=== PATIENT | female | born 1945 | race Caucasian/White ===

== ENCOUNTER 2016-12-10 08:15 | Inpatient (IN) ==
--- NOTE | 2016-12-10 08:42 | Emergency Department Note ---
Whit Gooden Hilary, am scribing for, and in the presence of, Denver Ramos MD 08:38. Rachel Gooden Phillip K, MD, personally performed the services described in this documentation, ascribed by Afshan Sherman in my presence, and it is both accurate and complete 842 . Arrival - Arrival Chief Complaint: Extremity Injury Stated Complaint: ankle injury ED Nursing Triage Note: Brought in by EMS c/o left ankle deformity s/p fall around 0530 this morning. Obvious deformity noted to left ankle. PMS intact. Mode of Arrival: Stretcher Limitations: No Limitations Source: Patient, RN Notes Reviewed Time Seen by Provider: 12/10/16 08:28 - History of Present Illness HPI Narrative: Pt is a 71 y/o female brought to the ED via EMS with c/o left ankle pain s/p a fall this morning. Pt states she was standing in her closet picking out clothes when she fell over and hurt her left ankle. She reports being very weak recently due to vomiting and diarrhea for 6 days. She confirms left ankle pain, vomiting, diarrhea and weakness but denies LOC. No other complaints or problems stated in the ED. Onset (ago): hour(s) Consistency: constant Severity: moderate Severity scale (1-10): 2 Quality: sharp Date of Last Menstrual Period: hysterectomy Allergies/Adverse Reactions: Allergies Allergy/AdvReac Type Severity Reaction Status Date / Time Cefaclor [From Ceclor] Allergy Severe SHORTNESS Verified 09/05/16 14:48 OF BREATH Meclofenamic Acid Allergy Severe RASH Verified 09/05/16 14:48 [From Meclomen] ofloxacin [From Floxin] Allergy Severe RASH Verified 09/05/16 14:48 Oxycodone [From OxyContin] Allergy Severe Confusion Verified 09/05/16 14:48 piroxicam [From Feldene] Allergy Severe Nausea Verified 09/05/16 14:48 ranitidine [From Zantac] Allergy Severe Gastrointestinal Verified 09/05/16 14:48 Upset alprazolam [From Xanax] Allergy Intermediate Gastrointestinal Verified 09/05/16 14:48 Upset levofloxacin [From Levaquin] Allergy Intermediate RASH Verified 09/05/16 14:48 meclizine Allergy Intermediate RASH Verified 09/05/16 14:48 Penicillins Allergy Intermediate RASH Verified 09/05/16 14:48 ANDROSPAM Allergy Severe RASH Uncoded 09/05/16 14:48 Home Medications: Home Medications Medication Instructions Recorded Confirmed Type Clopidogrel [Plavix] 75 mg PO DAILY 02/21/15 09/10/16 History Montelukast Sodium 10 mg PO DAILY 02/21/15 09/10/16 History Omeprazole [Prilosec] 20 mg PO BID 02/21/15 09/10/16 History Pioglitazone HCl 30 mg PO DAILY 02/21/15 09/10/16 History Sertraline HCl 1 tablet PO DAILY 02/21/15 09/10/16 History Potassium Chloride 10 meq PO DAILY 03/06/15 09/10/16 History Albuterol Sulfate [Ventolin HFA] 2 puff INH BID 09/05/16 09/10/16 History Aspirin EC Tab 81 mg PO DAILY 09/05/16 09/10/16 History Ipratropium/Albuterol Inhaler 1 puff INH BID 09/05/16 09/10/16 History [Combivent Respimat Inhaler] predniSONE TAB [PredniSONE] 20 mg PO DAILY #60 tablet 09/09/16 09/10/16 Rx Budesonide/Formoterol 160-4.5 2 puff INH BID 09/10/16 09/10/16 History [Symbicort 160-4.5] Carvedilol [Coreg] 6.25 mg PO BID #100 tablet 09/21/16 Rx Furosemide Tab [Lasix Tab] 40 mg PO DAILY #60 tablet 09/21/16 Rx Spironolactone [Aldactone] 12.5 mg PO DAILY #60 tablet 09/21/16 Rx Valsartan [Diovan] 80 mg PO BID #100 tablet 09/21/16 Rx Review of System - Review of System 12 point system: reviewed and no additional remarkable complaints except as stated - Review of System Constitutional: Absent: fever Cardiovascular: Absent: syncope Gastrointestinal: Present: nausea, vomiting Musculoskeletal: Present: leg pain (left ankle pain) Medical,Surgical,& Family Hx - Medical History Cardio: History of: CAD, Hypertension, Cardiovascular Problems Neurology: History of: Cerebrovascular Accident No history of: Seizures HEENT: History of: Dental Problems Endocrine: History of: Adrenal Disease (CYST ON R LEFT ADRENL GLAND REMOVE) , Diabetes Mellitus (NIDDM) Rheumatology: History of;: Rheumatoid Arthritis Respiratory: History of: COPD, Pneumonia, Respiratory Problems (HOMEV O2) Renal: Comment Only: Renal Problems (CYST ON RIGHT RENAL GLAND) Genitourinary: History of: Recurring Urinary Tract Infections (LEFT ADRENAL GLAND AND KIDNEY REMOVAL DUE TO CYST) Gastrointestinal: History of: Polyps Musculoskeletal: History of: Back/Neck Problems (PINCH NERVE) Hematology: History of: Clotting Problems (TAKING PLAVIX, NO SPLEEN) Reproductive: History of: Reproductive Problems (INFECTION IN WOMB) Other: History of: MRSA - Surgical History Cardiac Surgeries: Sugical HX of: Cardiac Catheterization (stent x's 1) Thoracic Surgeries: Surgical HX of;: Nephrectomy (LEFT KIDNEY) Abdominal Surgeries: Surgical HX of: Cholecystectomy, Splenectomy Reproductive Surgeries: Surgical HX of;: Breast Surgery (BREAST BX), Genitourinary Surgery, Gynecologic Surgery, Hysterectomy Orthopedic Surgeries: Surgical HX of;: Orthopedic Surgery (RIGHT WRIST L ELBOW) - Family History Family History: Reports;: Family Cancer (PARENTS 2 SISTERS), Family Diabetes ( DAD BROTHER SISTER), Family Heart Disease (sister and brother) - Social History Smoking Status: Smoker, status unknown Frequency of Alcohol Use: None Type of Drug Use: None Exam Vital Signs: Vital Signs Temperature 97.8 F 12/10/16 08:20 Pulse Rate 54 L 12/10/16 08:41 Respiratory Rate 20 12/10/16 08:41 Blood Pressure 156/76 12/10/16 08:41 O2 Sat by Pulse Oximetry 100 12/10/16 08:41 - General General appearance: alert, in no apparent distress - Head Head exam: Present: atraumatic, normocephalic - Eye Eye exam: Present: normal appearance, PERRL, EOMI - ENT ENT exam: Present: mucous membranes moist, TM's normal bilaterally. Absent: mucous membranes dry - Neck Neck exam: Present: full ROM, trachea midline. Absent: tenderness - Chest Chest inspection: Present: symmetric chest wall rise. Absent: tenderness - Respiratory Respiratory exam: Present: normal lung sounds bilaterally. Absent: respiratory distress - Cardiovascular Cardiovascular exam: Present: regular rate, normal rhythm, normal heart sounds. Absent: murmur, rubs, gallop - Abdominal Exam Abdominal exam: Present: soft, tenderness, normal bowel sounds. Absent: distention - Extremities Exam Extremities exam: Present: tenderness (swelling and tenderness to the medial and lateral aspect of left ankle). Absent: full ROM (left ankle) - Back Exam Back exam: Present: full ROM. Absent: tenderness - Neurological Exam Neurological exam: Present: alert, oriented X3, CN II-XII intact. Absent: motor sensory deficit - Psychiatric Psychiatric exam: Present: normal affect, normal mood - Skin Skin exam: Present: warm, dry, intact, normal color. Absent: rash Course Course Narrative: Labs presently pending. Results - EKG EKG results: interpreted by ERMMaldonado, WNL, sinus rhythm - Diagnostic Findings Procedure: X-ray: report reviewed by me (Bimalleolar fracture left ankle) Disposition Clinical Impression: Bimalleolar fracture of left ankle Case discussed with: patient, patient's family Disposition: Still a Patient Condition: Guarded Additional Instructions: Admit to Dr. Derrek Rodney for ankle surgery.
[2016-12-10] MEDS ORDERED: CLINDAMYCIN INJ 900 MG in PREMIX 1 EACH IV ONE (08:51)
[2016-12-10] MEDS ORDERED: HYDROmorphone 2 MG/1 ML VIAL IV PRN (08:52)
--- NOTE | 2016-12-10 08:52 | Orthopedic History & Physical ---
History of Present Illness Chief complaint: Left ankle fracture History of present illness: Ms. Nava is a 71 year old female See dictated report Home Medications Medication Instructions Recorded Confirmed Type Clopidogrel [Plavix] 75 mg PO DAILY 02/21/15 09/10/16 History Montelukast Sodium 10 mg PO DAILY 02/21/15 09/10/16 History Omeprazole [Prilosec] 20 mg PO BID 02/21/15 09/10/16 History Pioglitazone HCl 30 mg PO DAILY 02/21/15 09/10/16 History Sertraline HCl 1 tablet PO DAILY 02/21/15 09/10/16 History Potassium Chloride 10 meq PO DAILY 03/06/15 09/10/16 History Albuterol Sulfate [Ventolin HFA] 2 puff INH BID 09/05/16 09/10/16 History Aspirin EC Tab 81 mg PO DAILY 09/05/16 09/10/16 History Ipratropium/Albuterol Inhaler 1 puff INH BID 09/05/16 09/10/16 History [Combivent Respimat Inhaler] predniSONE TAB [PredniSONE] 20 mg PO DAILY #60 tablet 09/09/16 09/10/16 Rx Budesonide/Formoterol 160-4.5 2 puff INH BID 09/10/16 09/10/16 History [Symbicort 160-4.5] Carvedilol [Coreg] 6.25 mg PO BID #100 tablet 09/21/16 Rx Furosemide Tab [Lasix Tab] 40 mg PO DAILY #60 tablet 09/21/16 Rx Spironolactone [Aldactone] 12.5 mg PO DAILY #60 tablet 09/21/16 Rx Valsartan [Diovan] 80 mg PO BID #100 tablet 09/21/16 Rx Allergies Allergy/AdvReac Type Severity Reaction Status Date / Time Cefaclor [From Ceclor] Allergy Severe SHORTNESS Verified 09/05/16 14:48 OF BREATH Meclofenamic Acid Allergy Severe RASH Verified 09/05/16 14:48 [From Meclomen] ofloxacin [From Floxin] Allergy Severe RASH Verified 09/05/16 14:48 Oxycodone [From OxyContin] Allergy Severe Confusion Verified 09/05/16 14:48 piroxicam [From Feldene] Allergy Severe Nausea Verified 09/05/16 14:48 ranitidine [From Zantac] Allergy Severe Gastrointestinal Verified 09/05/16 14:48 Upset alprazolam [From Xanax] Allergy Intermediate Gastrointestinal Verified 09/05/16 14:48 Upset levofloxacin [From Levaquin] Allergy Intermediate RASH Verified 09/05/16 14:48 meclizine Allergy Intermediate RASH Verified 09/05/16 14:48 Penicillins Allergy Intermediate RASH Verified 09/05/16 14:48 ANDROSPAM Allergy Severe RASH Uncoded 09/05/16 14:48 Medical,Surgical,& Family Hx - Medical History Cardio: History of: CAD, Hypertension, Cardiovascular Problems Neurology: History of: Cerebrovascular Accident No history of: Seizures HEENT: History of: Dental Problems Endocrine: History of: Adrenal Disease (CYST ON R LEFT ADRENL GLAND REMOVE) , Diabetes Mellitus (NIDDM) Rheumatology: History of;: Rheumatoid Arthritis Respiratory: History of: COPD, Pneumonia, Respiratory Problems (HOMEV O2) Renal: Comment Only: Renal Problems (CYST ON RIGHT RENAL GLAND) Genitourinary: History of: Recurring Urinary Tract Infections (LEFT ADRENAL GLAND AND KIDNEY REMOVAL DUE TO CYST) Gastrointestinal: History of: Polyps Musculoskeletal: History of: Back/Neck Problems (PINCH NERVE) Hematology: History of: Clotting Problems (TAKING PLAVIX, NO SPLEEN) Reproductive: History of: Reproductive Problems (INFECTION IN WOMB) Other: History of: MRSA - Surgical History Cardiac Surgeries: Sugical HX of: Cardiac Catheterization (stent x's 1) Thoracic Surgeries: Surgical HX of;: Nephrectomy (LEFT KIDNEY) Abdominal Surgeries: Surgical HX of: Cholecystectomy, Splenectomy Reproductive Surgeries: Surgical HX of;: Breast Surgery (BREAST BX), Genitourinary Surgery, Gynecologic Surgery, Hysterectomy Orthopedic Surgeries: Surgical HX of;: Orthopedic Surgery (RIGHT WRIST L ELBOW) - Family History Family History: Reports;: Family Cancer (PARENTS 2 SISTERS), Family Diabetes ( DAD BROTHER SISTER), Family Heart Disease (sister and brother) - Social History Smoking Status: Smoker, status unknown Frequency of Alcohol Use: None Type of Drug Use: None Exam - Constitutional Vitals: Period Temp Pulse Resp BP Sys/Blanc Pulse Ox Last 24 Hr 97.8 F-97.8 F 52-54 20-22 156-160/60-76 100-100
--- NOTE | 2016-12-10 08:57 | XRay Report ---
XR ankle 3V LT Indication: Left ankle injury. Comparison: None. Technique: AP lateral and oblique views of the left ankle. Findings: There is a large amount of swelling involving the lateral and medial malleolar soft tissues. A minimally displaced bimalleolar, possibly trimalleolar fracture is demonstrated with lateral translation of the talus within the tibiotalar joint. Bony structures are diffusely demineralized. Impression: 1. An acute bimalleolar fracture of the left ankle is demonstrated with lateral translation of the talus within the tibiotalar joint. Posterior malleolus of the tibia is not well identified on the lateral image. Trimalleolar fracture is not excluded. 12/10/2016 8:53 AM PROCEDURE INTERPRETED AT [facility] DEPARTMENT OF RADIOLOGY Final Report Signed by: Dr. Declan Enamorado
--- NOTE | 2016-12-10 09:00 | EKG Report ---
Stationary ECG Study [facility] ER Test Date: 12/10/2016 9:01:06 AM Pat Name: DAVID COX Department: Room: Gender: F Systems Analyst Engineer: : 1945 Requested by: Denver Vora Order Number: [id number] Reading MD: MARCELLO FERGUSON Intervals [place] Rate: 53 P: 67 NE: 144 QRS: 83 QRSD: 101 T: 78 QT: 467 QTc: 450 Interpretive Statements SINUS BRADYCARDIA Electronically Signed On 12-10-16 13:28:06 CDT by MARCELLO FERGUSON [email or web address]
[2016-12-10 09:15] LABS: Basophils # 0.1 10*3/uL (0.0-0.2); Basophils % 0.3 % (0.0-0.8); Eosinophils # 0.1 10*3/uL (0.0-0.87); Eosinophils % 0.3 % (0.00-10.9); Hematocrit 39.9 VOL% (35.7-47.0); Immature Granulocytes % 0.4 %; Immature Granulocytes Absolute 0.07 #; Lymphocytes # 3.9 10*3/uL (1.4-4.0); Lymphocytes % 21.4 % (21.3-54.2); Mean Corpuscular HGB Conc 32.6 GM/DL (32-36); Mean Corpuscular Hemoglobin 31 PG (27-34); Mean Corpuscular Volume 94.5 FL (87-102); Mean Platelet Volume 11.6 FL (9.6-12.0); Monocytes # 1.4 10*3/uL (0.11-0.8); Monocytes % 7.3 % (1.7-12.7); Neutrophils # 12.9 10*3/uL (1.4-7.4); Neutrophils % 70.3 % (38.7-73.9); Platelet Count 213 T/CUMM (130-400); Red Blood Count 4.22 MC/CUMM (3.8-5.5); Red Cell Distribution Width 14.2 % (9.3-17.3); White Blood Count 18.4 T/CUMM (4-12)
--- NOTE | 2016-12-10 09:25 | XRay Report ---
Exam: XR chest 1V Date: 12/10/2016 8:53 AM Indication: Respiratory preop evaluation of the chest Comparison: 09/19/2016 Technical: AP portable Findings: Cardiomegaly is present. ASVD is noted. Arthritic change present over the shoulders. Oxygen tubing is present. No obvious consolidating infiltrate or effusion. Impression: 1. Cardiomegaly with ASVD. 2. Improved aeration with resolved effusion and interstitial edema when compared to previous study. PROCEDURE INTERPRETED AT [facility] DEPARTMENT OF RADIOLOGY Final Report Signed by: Dr. Александр Magallanes
[2016-12-10 09:29] LABS: PT Patient Result 10.1 SECS; Partial Thromboplastin Time 26.8 SECS (0-40)
[2016-12-10 09:47] LABS: Alanine Aminotransferase 14 U/L (13-56); Albumin 3.2 G/DL (3.4-5.0); Alkaline Phosphatase 113 U/L (45-117); Aspartate Amino Transferase 10 U/L (0-37); Bilirubin,Total < 0.39 MG/DL (0.2-1.0); Blood Urea Nitrogen 29 MG/DL (7-18); Calcium 8.8 MG/DL (8.5-10.1); Glucose 103 MG/DL (74-106); Potassium 4.1 MMOL/L (3.5-5.1); Sodium 143 MMOL/L (136-145); Total Protein 6.3 G/DL (6.4-8.3)
[2016-12-10] MEDS ORDERED: PROPOFOL 200 MG/20 ML VIAL IV ONE (09:56)
[2016-12-10] MEDS ORDERED: PHENYLEPHRINE 1 MG/10 ML SYRINGE IV ONE (09:56)
[2016-12-10] MEDS ORDERED: ONDANSETRON 4 MG/2 ML VIAL ONE ×2 (09:56→11:32)
[2016-12-10] MEDS: SODIUM CHLORIDE 0.9% 1,000 ML IV SCH ×2 (09:56→12:51)
[2016-12-10] MEDS ORDERED: GLYCOPYRROLATE 0.4 MG/2 ML VIAL ONE (09:56)
[2016-12-10] MEDS ORDERED: CLINDAMYCIN INJ 50 ML IV ONE (10:02)
--- NOTE | 2016-12-10 11:08 | XRay Report ---
XR ankle 3V LT Indication: Intraoperative C-arm fluoroscopy. Comparison: None. Technique: A total of 5 images were obtained intraoperatively using C-arm fluoroscopy. Findings: Images were reviewed and deemed satisfactory by the operative physician. Total fluoroscopy time was 6 seconds. Impression: 1. C-arm usage as detailed. 12/10/2016 11:05 AM PROCEDURE INTERPRETED AT [facility] DEPARTMENT OF RADIOLOGY Final Report Signed by: Dr. Declan Enamorado
[2016-12-10] MEDS ORDERED: LACTULOSE 20 GM/30 ML UDCUP PO PRN (11:17)
[2016-12-10] MEDS ORDERED: MAGNESIUM HYDROXIDE SUSP 30 ML UDCUP PO PRN (11:17)
--- NOTE | 2016-12-10 11:21 | Anesthesia Post-Op ---
Anesthesia Post OP - Post Ansesthetic Evaluation Patient seen in post op: Yes Resp: within normal limits CV: within normal limits Mental: within normal limits Temp: within normal limits [id number]: within normal limits Nausea and Vomiting: within normal limits Pain: within normal limits
[2016-12-10] MEDS ORDERED: ACETAMINOPHEN 1,000 MG/100 ML VIAL IV ONE (11:25)
[2016-12-10] MEDS ORDERED: SEVOFLURANE 1 UNIT/15 MINUTE INH ONE (11:25)
[2016-12-10] MEDS ORDERED: LACTATED RINGERS 1,000 ML IV ONE (11:25)
[2016-12-10] MEDS ORDERED: LACTATED RINGERS 1,000 ML IV SCH (11:30)
[2016-12-10] MEDS ORDERED: ONDANSETRON 4 MG/2 ML VIAL IV PRN (11:30)
[2016-12-10] MEDS ORDERED: HYDROmorphone 2 MG/1 ML VIAL ONE (11:31)
[2016-12-10] MEDS: HYDROmorphone 2 MG/1 ML VIAL IV PRN ×3 (11:36→16:39)
--- NOTE | 2016-12-10 13:11 | Hospitalist Consult Note ---
Assessment and Plan (1) COPD (chronic obstructive pulmonary disease) Status: Chronic Assessment and plan: Long history of tobacco use with terminating hospitalizations in September, secondary mucoid impaction with respiratory failure requiring mechanical ventilation. Successful cessation of tobacco product use following discharge. Current Visit: No Qualifiers: COPD type: chronic bronchitis (2) Atherosclerotic cardiovascular disease Status: Chronic Assessment and plan: Previous left anterior descending coronary artery stenting. Recent echocardiogram showing ejection fraction 40%. Bilateral carotid bruits with prominent intra-abdominal bruits. Current Visit: No (3) Bimalleolar fracture of left ankle Status: Acute Current Visit: Yes (4) Diarrhea Status: Chronic Assessment and plan: She appears to have long-standing GI complaints most recently she has been bothered by liquid diarrhea. She did receive a prolonged course of antibiotics in September but apparently was not found to have C. difficile during a hospitalization in November at her local hospital she continued to have diarrhea and attributes her injury due to weakness from long-standing diarrhea. Current Visit: Yes History of Present Illness - Data of Consult Patient: known to practice within the last 3 years - Consult Narrative History of present illness: Ms. Nava is a 71 year old female who earlier today lost her balance and twisted and sustained an ankle fracture. Earlier today she underwent repair of the left malleolar fracture. Patient describes herself as being very weak and this the source of the fall. She attributes the weakness to a chronic diarrhea which developed in November leading to the hospitalization at her local hospital. She was discharged with Imodium. No antibiotics were prescribed at discharge. She reports the diarrhea cleared for a few days and then recurred. She continues to have liquid bowel movements with urgency and only mild abdominal pain generally. She was exposed heavily to antibiotics in September presenting here with an exacerbation of COPD returning home and being admitted the next day with respiratory failure requiring moderate to a course of mechanical ventilation. At that time she was a significant cigarette smoker and the second admission was felt to be due to mucoid impaction. She is been able to stop smoking since her release from the hospital in September. Patient has a history of coronary artery disease with a left anterior descending coronary stent placed approximately 2 years ago. Her echocardiogram done in September shows an ejection fraction of 40% with appropriate anterior wall hypokinesia. Recorded right ventricular systolic pressure was normal at that time. 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 She also apparently had an adrenal gland resected (chart notes of nephrectomy appear to be an accurate) and on September CT scanning had enlargement of the remaining adrenal gland. CC: Garth Anglin Jr., MD - Home Medications and Allergies Home Medications: Home Medications Medication Instructions Recorded Confirmed Type Clopidogrel [Plavix] 75 mg PO DAILY 02/21/15 12/10/16 History Montelukast Sodium 10 mg PO DAILY 02/21/15 12/10/16 History Omeprazole [Prilosec] 20 mg PO BID 02/21/15 12/10/16 History Pioglitazone HCl 30 mg PO DAILY 02/21/15 12/10/16 History Sertraline HCl 50 mg PO DAILY 02/21/15 12/10/16 History Aspirin EC Tab 81 mg PO DAILY 09/05/16 12/10/16 History Carvedilol [Coreg] 6.25 mg PO BID #100 tablet 09/21/16 12/10/16 Rx Furosemide Tab [Lasix Tab] 40 mg PO DAILY #60 tablet 09/21/16 12/10/16 Rx Valsartan [Diovan] 80 mg PO BID #100 tablet 09/21/16 12/10/16 Rx Glycopyrrolate/Formoterol Fum 1 puff INH DAILY 12/10/16 12/10/16 History [Bevespi Aerosphere Inhaler] Allergies/Adverse Reactions: Allergies Allergy/AdvReac Type Severity Reaction Status Date / Time Cefaclor [From Ceclor] Allergy Severe SHORTNESS Verified 09/05/16 14:48 OF BREATH Meclofenamic Acid Allergy Severe RASH Verified 09/05/16 14:48 [From Meclomen] ofloxacin [From Floxin] Allergy Severe RASH Verified 09/05/16 14:48 Oxycodone [From OxyContin] Allergy Severe Confusion Verified 09/05/16 14:48 piroxicam [From Feldene] Allergy Severe Nausea Verified 09/05/16 14:48 ranitidine [From Zantac] Allergy Severe Gastrointestinal Verified 09/05/16 14:48 Upset alprazolam [From Xanax] Allergy Intermediate Gastrointestinal Verified 09/05/16 14:48 Upset levofloxacin [From Levaquin] Allergy Intermediate RASH Verified 09/05/16 14:48 meclizine Allergy Intermediate RASH Verified 09/05/16 14:48 Penicillins Allergy Intermediate RASH Verified 09/05/16 14:48 ANDROSPAM Allergy Severe RASH Uncoded 09/05/16 14:48 Medical,Surgical,& Family Hx - Medical History Cardio: History of: CAD (Stenting to the left anterior descending coronary artery), Hypertension, Cardiovascular Problems (Left ventricular ejection fraction 40% on echocardiogram) Neurology: History of: Cerebrovascular Accident (2 episodes one involving the left side and the second involving both lower ), Seizures HEENT: History of: Dental Problems Endocrine: History of: Adrenal Disease (Enlarged on CT in September, prior adrenal resection), Diabetes Mellitus (NIDDM) (Mild glucose intolerance treated with pioglitazone only) Rheumatology: History of;: Rheumatoid Arthritis Respiratory: History of: COPD (Requirement of mechanical ventilation September 2016) , Pneumonia, Respiratory Problems (HOMEV O2) Renal: Comment Only: Renal Problems (CYST ON RIGHT RENAL GLAND) Genitourinary: History of: Recurring Urinary Tract Infections (LEFT ADRENAL GLAND AND KIDNEY REMOVAL DUE TO CYST) Gastrointestinal: History of: Polyps (She reports no colonoscopy in the last 8- 10 years), GI Problems (She describes a "stomach infection") Hematology: History of: Blood Disorders (ITP remote with splenectomy) Other: History of: MRSA - Surgical History Cardiac Surgeries: Sugical HX of: Cardiac Catheterization (stent x's 1) Abdominal Surgeries: Surgical HX of: Cholecystectomy, Splenectomy Reproductive Surgeries: Surgical HX of;: Breast Surgery (Multiple breast biopsies for benign disease), Genitourinary Surgery (Removal of adrenal gland), Hysterectomy Orthopedic Surgeries: Surgical HX of;: Orthopedic Surgery (RIGHT WRIST L ELBOW) - Family History Family History: Reports;: Family Cancer (PARENTS 2 SISTERS), Family Diabetes ( DAD BROTHER SISTER), Family Heart Disease (sister and brother) - Social History Smoking Status: Former smoker (No consumption since discharge in September 2069) Frequency of Alcohol Use: None Type of Drug Use: None - Constitutional Constitutional: Present: fatigue, weakness. Absent: fever(s) - Cardiovascular Cardiovascular: Absent: chest pain at rest, chest pain with activity, palpitations, PND - Respiratory Respiratory: Present: cough, dyspnea. Absent: hemoptysis - Gastrointestinal Gastrointestinal: Present: diarrhea. Absent: cramping, dysphagia, hematemesis, hematochezia, melena, nausea, vomiting - Genitourinary Genitourinary: Absent: hematuria - Neurological Neurological: Absent: disequilibrium, focal weakness, syncope Exam - Constitutional Vitals: Period Temp Pulse Resp BP Sys/Blanc Pulse Ox Last 24 Hr 97.8 F-98.8 F 52-74 12-22 102-160/33-76 100-100 General appearance: over weight - Neck Neck exam: Absent: lymphadenopathy, thyromegaly - Respiratory Respiratory exam: Present: prolonged expiratory phase, wheezes (End-expiratory on). Absent: rales, rhonchi - Cardiovascular Cardiovascular exam: Present: carotid bruit (Bilateral right greater than left) , regular rate and rhythm, systolic murmur (Compatible with coronary sclerosis) - GI/Abdominal GI/Abdominal exam: Present: normal bowel sounds, other (Diffuse intra-abdominal bruits). Absent: distended, mass, organomegaly, tenderness - Extremities Exam Extremities exam: Absent: edema - Neurological Exam Neurological exam: Present: alert, oriented X3 Results - Labs CBC & BMP: 12/10/16 08:53 12/10/16 08:52 Labs: Albumin 3.2 - Impressions Sinus rhythm with sinus bradycardia - Diagnostic Findings Procedure: Chest x-ray: image reviewed by me (Normal heart size with increased interstitial markings and prominent pulmonary trunks)
[2016-12-10] MEDS: ALBUTEROL/IPRATROPIUM 3 ML NEB RESP TX SCH ×3 (13:56→23:38)
--- NOTE | 2016-12-10 14:30 | History and Physical Report ---
DATE OF ADMISSION: 12/10/2016 HISTORY: A 71-year-old, white female reported to be a household ambulator, fell this morning injurin g her left ankle. She had immediate pain, swelling and deformity. She has numerous medical problems . [facility], diagnosed with bimalleolar fracture o f the left ankle, which I was asked to evaluate. PAST MEDICAL HISTORY: COPD, hypertension, diabetes and heart disease. ALLERGIES: CECLOR, MECLOMEN, FLOXIN, OXYCONTIN, FELDENE, ZANTAC, XANAX, LEVAQUIN, MECLIZINE, PENICIL COLLEEN AND . CURRENT MEDICATIONS: Prednisone, Diovan, Aldactone, Sertraline, Potassium, Pioglitazone, Prilosec, M ontelukast, Combivent inhaler, Lasix, Plavix, Coreg, Symbicort, Aspirin and Ventolin. PAST SURGERY: Wrist ORIF. PHYSICAL EXAMINATION GENERAL: Well-developed and well-nourished female. She is awake and alert, responses to questions a ppropriately. HEENT: Within normal limits. CHEST: Clear. HEART: Regular rate and rhythm. ABDOMEN: Soft and nontender. /RECTAL: Deferred. EXTREMITIES: She has no pain about either upper extremity with palpation and gentle range of motion. Also there is no pain with gentle range of motion about the right lower. On the left side, there i s obvious swelling and deformity about the left ankle. The injury is closed. She can wiggle her toe s, describes sensibility as intact. There is no skin abrasion or laceration. There is no pain more proximally to the tibia, knee or hip. RADIOGRAPHS: Confirm sever osteopenia with bimalleolar fracture left ankle, displaced. IMPRESSION: BIMALLEOLAR FRACTURE, LEFT ANKLE. PLAN: I have discussed with the patient and her family the diagnosis, treatment and recommendations including the need for ORIF. We also discussed the postoperative course and the need for nonweightbe aring postoperatively. This may necessitate swing bed placement. All questions were answered. She appears to understand and agrees to the plan for ORIF, left ankle.
--- NOTE | 2016-12-10 15:53 | Discharge Summary ---
Hospital Course - Hospital Course Hospital Course: Admitted for ORIF left ankle discharged home or rehab depending on family decision and PT safety Diagnosis - Discharge Diagnosis (1) Bimalleolar fracture of left ankle Status: Acute Discharge Plan - Discharge Data Disposition: Disch To Home/Self Care Condition at Discharge: Stable Discharge Diet: advance to your usual diet Activity: ambulate only with your walker Hygiene: keep area(s) dry Weight Bearing at Discharge: non-weight bearing - Discharge Medications New HYDROcodone/ACETAMIN 7.5-325 [[place] 7.5-325] 2 tablet PO Q4H PRN #25 tablet PRN Reason: Pain Severe (8-10) Continue Pioglitazone HCl 30 mg PO DAILY Omeprazole [Prilosec] 20 mg PO BID Clopidogrel [Plavix] 75 mg PO DAILY Sertraline HCl 50 mg PO DAILY Montelukast Sodium 10 mg PO DAILY Aspirin EC Tab 81 mg PO DAILY Furosemide Tab [Lasix Tab] 40 mg PO DAILY #60 tablet Valsartan [Diovan] 80 mg PO BID #100 tablet Glycopyrrolate/Formoterol Fum [Bevespi Aerosphere Inhaler] 1 puff INH DAILY Carvedilol [Coreg] 6.25 mg PO BID #100 tablet - Follow Up or Referral - Forms/Instructions Additional Discharge Instructions: Discharge home or swing bed continue home meds [place] for pain nonweightbearing with routine splint care follow-up 10 days Exam - Constitutional Vitals: Period Temp Pulse Resp BP Sys/Blanc Pulse Ox Last 24 Hr 97.8 F-98.8 F 52-74 12-22 86-160/33-76 99-100 Discharge Results Procedures and tests throughout hospitalization: Pending Orders 12/10/16 13:03 stool [C. Diff Toxins A & B] Routine Labs on day of discharge: Labs from last 24 hours 12/10/16 12/10/16 12/10/16 08:53 08:53 08:52 WBC 18.4 H RBC 4.22 Hgb 13.0 Hct 39.9 MCV 94.5 MCH 31 MCHC 32.6 RDW 14.2 Plt Count 213 MPV 11.6 Neut % (Auto) 70.3 Lymph % (Auto) 21.4 [place] % (Auto) 7.3 Eos % (Auto) 0.3 Baso % (Auto) 0.3 Neut # (Auto) 12.9 H Lymph # (Auto) 3.9 [place] # (Auto) 1.4 H Eos # (Auto) 0.1 Baso # (Auto) 0.1 Immature Gran % 0.4 Nucleated RBC % 0.0 Immature Gran # 0.07 Nucleated RBCs # 0.00 INR 1.0 PT Patient/Control Mix 10.1 Circ Anticoag PTT 26.8 Sodium Potassium Chloride Carbon Dioxide Anion Gap BUN Creatinine GFR Calculation BUN/Creatinine Ratio Glucose Calculated Osmolality Calcium Total Bilirubin AST ALT Alkaline Phosphatase Total Protein Albumin Globulin Albumin/Globulin Ratio Blood Type O POSITIVE Antibody Screen Negative 12/10/16 08:52 WBC RBC Hgb Hct MCV MCH MCHC RDW Plt Count MPV Neut % (Auto) Lymph % (Auto) [place] % (Auto) Eos % (Auto) Baso % (Auto) Neut # (Auto) Lymph # (Auto) [place] # (Auto) Eos # (Auto) Baso # (Auto) Immature Gran % Nucleated RBC % Immature Gran # Nucleated RBCs # INR PT Patient/Control Mix Circ Anticoag PTT Sodium 143 Potassium 4.1 Chloride 108 H Carbon Dioxide 23 Anion Gap 16.1 H BUN 29 H Creatinine 1.40 H GFR Calculation 37 BUN/Creatinine Ratio 20.00 Glucose 103 Calculated Osmolality 290.0 Calcium 8.8 Total Bilirubin < 0.39 AST 10 ALT 14 Alkaline Phosphatase 113 Total Protein 6.3 L Albumin 3.2 L Globulin 3.1 Albumin/Globulin Ratio 1.0 L Blood Type Antibody Screen DS: Provider Date of admission: 12/10/16 08:50 Primary care physician: . No PCP Attending physician on admission: Garth Anglin Jr., MD Consults: 12/10/16 08:52 Consult to Anesthesiology [CONS] Routine Consulting Provider: Reason for Anesthesiology: Pre-op Clearance 12/10/16 09:06 Consult to Physician [CONS] Routine Comment: Consulting Provider: Aron Schaefer Consulting Provider Notified: Yes When should Consulting Provider be notified: Now Person Notified: power called Date Notified: 12/10/16 Time Notified: 12:24 12/10/16 11:17 Consult to Physical Therapy [CONS] Routine Reason for Physical Therapy: Evaluate and Treat 12/10/16 11:20 Consult to Case Mgmt/Social Srvs [CONS] Routine Reason for Case Mgmt/Social Srvs: Home Health Rehab Equipment Consult Comment: Explore home versus rehab options Consult to Occupational Therapy [CONS] Routine Reason for Occupational Therapy: Evaluate and Treat Discharging clinician: Garth Anglin Jr., MD
--- NOTE | 2016-12-10 16:05 | Orthopedic Progress Note ---
Assessment and Plan (1) Bimalleolar fracture of left ankle Status: Acute Current Visit: Yes Orthopedics - Subjective Interval history: Comfortable splint clean and dry neurovascular intact discussed likely will be social problem with respect to swing bed versus able to go home she lives alone and family and will need to help if going home Exam - Constitutional Vitals: Period Temp Pulse Resp BP Sys/Blanc Pulse Ox Last 24 Hr 97.8 F-98.8 F 52-74 12-22 86-160/33-76 99-100 Results - Labs CBC & BMP: 12/10/16 08:53 12/10/16 08:52
[2016-12-10] MEDS: ONDANSETRON 4 MG/2 ML VIAL IV PRN ×2 (16:33→21:39)
--- NOTE | 2016-12-10 16:51 | Operative Note ---
DATE: 12/10/2016 PREOPERATIVE DIAGNOSIS: BIMALLEOLAR FRACTURE, LEFT ANKLE. POSTOPERATIVE DIAGNOSIS: SAME. OPERATIVE PROCEDURE: ORIF left ankle, bimalleolar. SURGEON: Garth Anglin Jr., MD ANESTHESIA: General. INDICATIONS: A 71-year-old white female fell this morning, sustaining a closed injury to her left an kle, bimalleolar ankle fracture. I discussed with she and her family preoperatively the diagnosis an d treatment recommendations. OPERATIVE PROCEDURE: The patient taken to the operating room and under general anesthetic, positione d in supine position. The left lower extremity was positioned, prepped and draped in the usual steri le manner. She received Cleocin preoperatively. The limb was elevated, exsanguinated, and tournique t inflated to 275 mmHg. A longitudinal incision was made over the lateral malleolus. Careful dissec tion exposed the fracture hematoma. There was significant comminution osteopenia in the distal fragm ent. It was reduced, secured first with an interfragmentary screw and then multiple cancellous screw s distally and cortical screws proximally with a 7-hole one-third tubular plate. This resulted in sa tisfactory reduction and stability. Attention was then turned to the medial side, where careful diss ection down to the medial malleolus fracture was performed, protecting the saphenous vein. The perio steum was removed from the fracture site, and it was reduced and secured with two guide pins with 4-0 cannulated screws. Both cannulated screws were inserted and reduction was confirmed fluoroscopical ly, AP, lateral and mortise views, satisfactory ORIF. All wounds were then irrigated and closed in s tandard fashion using 0-Vicryl, 2-0 Vicryl, and margarita. Sterile dressing and posterior stirrup spli nt was applied. Tourniquet was deflated at 40 minutes and she was taken to the recovery room in stab le condition.
[2016-12-10] MEDS: CLINDAMYCIN INJ 900 MG in PREMIX 1 EACH IV SCH (17:58)
[2016-12-10] MEDS: VALSARTAN 80 MG TABLET PO SCH (21:31)
[2016-12-10] MEDS: CARVEDILOL 6.25 MG TABLET PO SCH (21:31)
[2016-12-10] MEDS: PANTOPRAZOLE 40 MG TABLET PO SCH (21:32)
[2016-12-11] MEDS: PROMETHAZINE 25 MG/1 ML VIAL IM PRN ×2 (00:25→08:00)
[2016-12-11] MEDS: HYDROmorphone 2 MG/1 ML VIAL IV PRN ×2 (02:35→08:26)
[2016-12-11] MEDS: CLINDAMYCIN INJ 900 MG in PREMIX 1 EACH IV SCH (02:35)
[2016-12-11] MEDS: ALBUTEROL/IPRATROPIUM 3 ML NEB RESP TX SCH ×6 (04:20→22:44)
[2016-12-11] MEDS: SODIUM CHLORIDE 0.9% 1,000 ML IV SCH ×3 (08:29→12:20)
[2016-12-11] MEDS ORDERED: SERTRALINE 50 MG TABLET PO SCH (09:00)
[2016-12-11] MEDS ORDERED: FUROSEMIDE 40 MG TABLET PO SCH (09:00)
--- NOTE | 2016-12-11 09:59 | Orthopedic Progress Note ---
Assessment and Plan (1) Nausea & vomiting Status: Acute Assessment and plan: Concern for postoperative ileus KUB ordered Consent to general surgery ordered No further orthopedic intervention needed, recommend transferring patient service to medicine for further medical management Current Visit: Yes (2) Bimalleolar fracture of left ankle Status: Acute Assessment and plan: Continued care: Nonweightbearing left lower extremity, PT, DVT prophylaxis, pain control Current Visit: Yes Orthopedics - Subjective Interval history: Patient complaining of significant nausea and vomiting. Nurse states that she vomited 700 mL of bile this morning. Patient also complaining of pain to her left ankle worse when moving her leg. Denies any numbness or tingling. Exam - Constitutional Vitals: Period Temp Pulse Resp BP Sys/Blanc Pulse Ox Last 24 Hr 98.3 F-98.8 F 59-87 12-20 86-141/33-52 95-100 General appearance: no acute distress, over weight Exam: On nasal oxygen - Extremities Exam Extremities exam: Present: normal inspection (Left ankle: Splint intact. Good active range of motion toes. Cap refill brisk. Sensation grossly intact to light touch) Results - Labs CBC & BMP: 12/10/16 08:53 12/10/16 08:52 Lab Results: I have reviewed the past 24 hour labs - Diagnostic Findings Procedure: KUB x-ray: other (Ordered), X-ray: image reviewed by me, report reviewed by me Specialty Discharge - Follow Up or Referrals Follow up with: Garth Anglin Jr., MD [Physician] - 12/22/16 9:25 am
--- NOTE | 2016-12-11 10:38 | Gastrointestinal Consult Note ---
<Darlene Vila Maldonado - Last Filed: 12/11/16 10:31> Assessment and Plan (1) Diarrhea Status: Chronic Assessment and plan: 12/11-several week history of episodic diarrhea with abdominal pain and cramping. Multiple antibiotic use in September during hospitalization and postdischarge. Reported recent hospital stay in November with negative Clostridium difficile. 20 pound weight loss over the last 3-4 weeks. No prior endoscopy history. Check stool studies. Plan an addendum to follow by Dr. Diamond. Current Visit: Yes (2) Nausea & vomiting Status: Acute Assessment and plan: 12/11-several year history of cyclic episodes of nausea and vomiting, with exacerbation this morning with intractable vomiting. Postop ankle fracture repair yesterday. KUB is pending at present time. Plan an addendum to follow by Dr. Diamond. Current Visit: Yes History of Present Illness Chief complaint: Nausea, vomiting, diarrhea History of present illness: Ms. Nava is a 71 year old female who was admitted to the hospital on yesterday after onset of fall and left ankle fracture. Patient has a prior history of COPD, diabetes, CAD with stent placement 2 years ago and chronic diarrhea. Patient reportedly had gotten up to get herself dressed and while inside a closet she fell due to reported weakness. Patient has a history of chronic diarrhea which started over the last several weeks. Her family who is at bedside, reports that she has had issues with cyclic nausea and vomiting as well as diarrhea off and on over the last several years but very sporadic and not to the extent it has been since November. She was admitted to [facility] in November for these symptoms and was told at that time that she was negative for Clostridium difficile and was sent home with Imodium. The symptoms seem to resolve somewhat however over the last several days has returned and worsened. According to her home health nurses report, she has lost 20 pounds over the last 3 weeks. Patient also complains of some generalized abdominal pain/cramping and discomfort. She has episodes of nausea and vomiting that is not precipitated by any known factors. She also has episodes of multiple diarrhea stools, with some nocturnal defecation and incontinence at night. She was hospitalized at our facility in September of this year for exacerbation of COPD and require mechanical ventilation with protracted hospital stay. During that time she was on multiple antibiotics. Patient is diabetic and reportedly her blood sugars have been controlled. Caregiver and patient deny any melena or hematochezia associated with her diarrhea. Denies any coffee-ground emesis or hematemesis with the nausea and vomiting episodes. Denies any fever or chills. She has never had endoscopy in the past that her family can recall. No family history of colon cancer. Patient's daughter does state that her mother is notorious for purchasing questionable meat products at the supermarket that are on the [employer] sale rack and states she knows she has been given what she calls "tainted meat" prepared by her mother. Patient underwent left malleolus fracture repair on yesterday with Dr. Anglin and seemed to do well postoperatively. This morning she began having intractable nausea and vomiting. Home Medications Medication Instructions Recorded Confirmed Type Clopidogrel [Plavix] 75 mg PO DAILY 02/21/15 12/10/16 History Montelukast Sodium 10 mg PO DAILY 02/21/15 12/10/16 History Omeprazole [Prilosec] 20 mg PO BID 02/21/15 12/10/16 History Pioglitazone HCl 30 mg PO DAILY 02/21/15 12/10/16 History Sertraline HCl 50 mg PO DAILY 02/21/15 12/10/16 History Aspirin EC Tab 81 mg PO DAILY 09/05/16 12/10/16 History Carvedilol [Coreg] 6.25 mg PO BID #100 tablet 09/21/16 12/10/16 Rx Furosemide Tab [Lasix Tab] 40 mg PO DAILY #60 tablet 09/21/16 12/10/16 Rx Valsartan [Diovan] 80 mg PO BID #100 tablet 09/21/16 12/10/16 Rx Glycopyrrolate/Formoterol Fum 1 puff INH DAILY 12/10/16 12/10/16 History [Bevespi Aerosphere Inhaler] HYDROcodone/ACETAMIN 7.5-325 2 tablet PO Q4H PRN #25 tablet 12/10/16 Rx [[place] 7.5-325] Allergies Allergy/AdvReac Type Severity Reaction Status Date / Time Cefaclor [From Ceclor] Allergy Severe SHORTNESS Verified 09/05/16 14:48 OF BREATH Meclofenamic Acid Allergy Severe RASH Verified 09/05/16 14:48 [From Meclomen] ofloxacin [From Floxin] Allergy Severe RASH Verified 09/05/16 14:48 Oxycodone [From OxyContin] Allergy Severe Confusion Verified 09/05/16 14:48 piroxicam [From Feldene] Allergy Severe Nausea Verified 09/05/16 14:48 ranitidine [From Zantac] Allergy Severe Gastrointestinal Verified 09/05/16 14:48 Upset alprazolam [From Xanax] Allergy Intermediate Gastrointestinal Verified 09/05/16 14:48 Upset levofloxacin [From Levaquin] Allergy Intermediate RASH Verified 09/05/16 14:48 meclizine Allergy Intermediate RASH Verified 09/05/16 14:48 Penicillins Allergy Intermediate RASH Verified 09/05/16 14:48 ANDROSPAM Allergy Severe RASH Uncoded 09/05/16 14:48 Medical,Surgical,& Family Hx - Medical History Cardio: History of: CAD (Stenting to the left anterior descending coronary artery), Hypertension, Cardiovascular Problems (Left ventricular ejection fraction 40% on echocardiogram) Neurology: History of: Cerebrovascular Accident (2 episodes one involving the left side and the second involving both lower ), Seizures HEENT: History of: Dental Problems Endocrine: History of: Adrenal Disease (Enlarged on CT in September, prior adrenal resection), Diabetes Mellitus (NIDDM) (Mild glucose intolerance treated with pioglitazone only) Rheumatology: History of;: Rheumatoid Arthritis Respiratory: History of: COPD (Requirement of mechanical ventilation September 2016) , Pneumonia, Respiratory Problems (HOMEV O2) Renal: Comment Only: Renal Problems (CYST ON RIGHT RENAL GLAND) Genitourinary: History of: Recurring Urinary Tract Infections (LEFT ADRENAL GLAND AND KIDNEY REMOVAL DUE TO CYST) Gastrointestinal: History of: Polyps (She reports no colonoscopy in the last 8- 10 years), GI Problems (She describes a "stomach infection") Musculoskeletal: History of: Back/Neck Problems (PINCH NERVE) Hematology: History of: Clotting Problems (TAKING PLAVIX, NO SPLEEN), Blood Disorders (ITP remote with splenectomy) Reproductive: History of: Reproductive Problems (INFECTION IN WOMB) Other: History of: MRSA - Surgical History Cardiac Surgeries: Sugical HX of: Cardiac Catheterization (stent x's 1) Thoracic Surgeries: Surgical HX of;: Nephrectomy (LEFT KIDNEY) Abdominal Surgeries: Surgical HX of: Cholecystectomy, Splenectomy Reproductive Surgeries: Surgical HX of;: Breast Surgery (Multiple breast biopsies for benign disease), Genitourinary Surgery (Removal of adrenal gland), Gynecologic Surgery, Hysterectomy Orthopedic Surgeries: Surgical HX of;: Orthopedic Surgery (RIGHT WRIST L ELBOW) - Family History Family History: Reports;: Family Cancer (PARENTS 2 SISTERS), Family Diabetes ( DAD BROTHER SISTER), Family Heart Disease (sister and brother) - Social History Smoking Status: Former smoker (No consumption since discharge in September 2069) Frequency of Alcohol Use: None Type of Drug Use: None 12 point system: reviewed and no additional remarkable complaints except as stated - Constitutional Constitutional: Present: as per HPI - EENT Eyes: Present: as per HPI Ears: Present: as per HPI Nose, mouth and throat: Present: as per HPI - Cardiovascular Cardiovascular: Present: as per HPI - Respiratory Respiratory: Present: as per HPI - Gastrointestinal Gastrointestinal: Present: as per HPI, abdominal pain, cramping, diarrhea, loose stools, nausea, vomiting - Genitourinary Genitourinary: Present: as per HPI - Musculoskeletal Musculoskeletal: Present: as per HPI - Neurological Neurological: Present: as per HPI - Psychiatric Psychiatric: Present: as per HPI - Endocrine Endocrine: Present: as per HPI - Hematologic/Lymphatic Hematologic/Lymphatic: Present: as per HPI Exam - Constitutional Vitals: Period Temp Pulse Resp BP Sys/Blanc Pulse Ox Last 24 Hr 98.3 F-98.8 F 59-87 12-20 86-141/33-52 95-100 General appearance: normal weight, no acute distress - Head Head exam: Present: normal inspection, normocephalic - Eye Eye exam: Present: other (Lids and conjunctive are unremarkable). Absent: scleral icterus - ENT ENT exam: Present: normal exam, normal oropharynx - Neck Neck exam: Present: normal inspection - Respiratory Respiratory exam: Present: clear to auscultation bilaterally. Absent: rales, rhonchi, wheezes - Cardiovascular Cardiovascular exam: Present: regular rate and rhythm. Absent: diastolic murmur , JVD, systolic murmur - GI/Abdominal GI/Abdominal exam: Present: normal bowel sounds, soft. Absent: ascites, distended, mass, organomegaly, tenderness - Extremities Exam Extremities exam: Present: normal inspection, full ROM - Back Exam Back exam: Present: normal inspection - Neurological Exam Neurological exam: Present: alert, oriented X3 - Psychiatric Psychiatric exam: Present: normal affect, normal mood - Skin Skin exam: Present: normal color, warm, dry Results - Labs CBC & BMP: 12/10/16 08:53 12/10/16 08:52 Lab Results: I have reviewed the past 24 hour labs - Diagnostic Findings Procedure: KUB x-ray: report reviewed by me Specialty Discharge - Follow Up or Referrals Follow up with: Garth Anglin Jr., MD [Physician] - 12/22/16 9:25 am <Monroe Diamond - Last Filed: 12/11/16 11:44> History of Present Illness History of present illness: Ms. Nava is a 71 year old female Exam - Constitutional Vitals: Period Temp Pulse Resp BP Sys/Blanc Pulse Ox Last 24 Hr 97.2 F-98.7 F 59-87 12-20 86-128/34-52 95-100 Results - Labs CBC & BMP: 12/10/16 08:53 12/10/16 08:52
--- NOTE | 2016-12-11 10:50 | XRay Report ---
XR KUB Indication: Postop nausea and vomiting. Comparison: None. Technique: Supine AP image of the abdomen was obtained. Findings: Surgical clips project in the left upper abdomen and right upper quadrant. The bowel gas pattern demonstrates no specific abnormality. Multiple calcifications present within the pelvis are favored to reflect phlebolith formation. Osseous structures demonstrate degenerative changes of the lumbar spine. Impression: 1. No specific abnormality of the bowel gas pattern is demonstrated. 12/11/2016 10:47 AM PROCEDURE INTERPRETED AT [facility] DEPARTMENT OF RADIOLOGY Final Report Signed by: Dr. Declan Enamorado
--- NOTE | 2016-12-11 11:01 | Hospitalist Progress Note ---
Assessment and Plan (1) Nausea & vomiting Status: Acute Assessment and plan: 1)N/V/D with weight loss- stool studies pending. Stop laxatives written for prn. KUB with normal bowel gas pattern. GI to see. Decrease protonix to qday as this can also cause diarrhea and she does not have a history of ulcer. No signof GI bleeding. On Zofran and phenergan. Hold Zoloft. Repeat labs- CBC, CMP today as none drawn this morning. 2)chronic CHF- EF 40% and some diastolic dsyfunction too on echo from September. 3)COPD- on home regimen, controlled 4)low blood pressure- meds held the last couple of days so I will stop valsartan and lasix for now. 5)dehydration with acute renal failure- baseline creatinine is 0.9. I have stopped her home lasix. On gentle hydration- increase rate to 75cc/hr given the persistence of her n/v. bolus with 500cc NS times one. Current Visit: Yes (2) Diarrhea Status: Chronic Current Visit: Yes (3) Chronic combined systolic and diastolic CHF (congestive heart failure) Status: Acute Current Visit: Yes (4) COPD (chronic obstructive pulmonary disease) Status: Chronic Current Visit: No (5) Hypertension Status: Chronic Current Visit: No Qualifiers: Hypertension type: essential hypertension Qualified Code(s): I10 - Essential (primary) hypertension (6) Diabetes mellitus Problem details: Home meds. Continue insulin coverage. Status: Chronic Current Visit: No Qualifiers: Diabetes mellitus type: type 2 (7) Chronic kidney disease Problem details: Monitor BUN/Cr Status: Chronic Current Visit: No Qualifiers: Chronic kidney disease stage: stage 3 (moderate) Qualified Code(s): N18.3 - Chronic kidney disease, stage 3 (moderate) (8) Bimalleolar fracture of left ankle Status: Acute Current Visit: Yes Hospitalist: Subjective Interval history: Mrs Nava continues to have nausea and copious amounts of vomiting. It was happening along with diarrhea in the months leading up to admission and her family felt she had fallen form being dehydrated from all the N/V/D. She has been losing weight. She has been in the hospital in the last few months for several weeks including a time on the vent with pneumonia. Stool studies have not been checked yet, but I have ordered them. I also consulted GI this morning. The patient said she had had an EGD in the past, but we can't find record of that. No fever. Exam - Constitutional Vitals: Period Temp Pulse Resp BP Sys/Blanc Pulse Ox Last 24 Hr 98.3 F-98.8 F 59-87 12-20 86-141/33-52 95-100 General appearance: mild distress (pale, lying flat with eyes closed, emesis bag at hand) - Head Head exam: Present: normocephalic, atraumatic - Eye Eye exam: Present: EOMI. Absent: scleral icterus - Respiratory Respiratory exam: Present: clear to auscultation bilaterally. Absent: rales, rhonchi, wheezes - Cardiovascular Cardiovascular exam: Present: regular rate and rhythm - GI/Abdominal GI/Abdominal exam: Present: normal bowel sounds, soft. Absent: tenderness - Extremities Exam Extremities exam: Absent: edema - Neurological Exam Neurological exam: Present: alert, oriented X3 (not a freat historian. ) - Skin Skin exam: Present: warm, dry (skin tenting present) Results - Labs CBC & BMP: 12/10/16 08:53 12/10/16 08:52 Lab Results: I have reviewed the past 24 hour labs Specialty Discharge - Follow Up or Referrals Follow up with: Garth Anglin Jr., MD [Physician] - 12/22/16 9:25 am
[2016-12-11] MEDS ORDERED: SODIUM CHLORIDE 0.9% 500 ML IV ONE ×2 (11:08→14:07)
[2016-12-11 11:18] LABS: ABG Base Excess -1.6 MMOL/L (-2.5-2.5); ABG HCO3 23.1 MMOL/L (20-26); ABG Oxygen Saturation 98.4 % (95-100); ABG PCO2 47.8 MM HG (35-48); ABG PH 7.323 (7.35-7.45); ABG TCO2 22.3 MMOL/L (23-27); Allen Test Positive
[2016-12-11 11:43] LABS: Basophils # 0.1 10*3/uL (0.0-0.2); Basophils % 0.2 % (0.0-0.8); Hematocrit 36.8 VOL% (35.7-47.0); Hemoglobin 11.8 GM/DL (12.0-16.0); Immature Granulocytes % 0.7 %; Lymphocytes # 2.7 10*3/uL (1.4-4.0); Lymphocytes % 9.1 % (21.3-54.2); Mean Corpuscular HGB Conc 32.1 GM/DL (32-36); Mean Corpuscular Hemoglobin 31 PG (27-34); Mean Corpuscular Volume 97.4 FL (87-102); Monocytes # 2.9 10*3/uL (0.11-0.8); Monocytes % 9.5 % (1.7-12.7); Neutrophils # 24.1 10*3/uL (1.4-7.4); Neutrophils % 80.5 % (38.7-73.9); Platelet Count 188 T/CUMM (130-400); Red Blood Count 3.78 MC/CUMM (3.8-5.5); Red Cell Distribution Width 14.5 % (9.3-17.3); White Blood Count 29.9 T/CUMM (4-12)
[2016-12-11] MEDS: ASPIRIN EC 81 MG TABLET PO SCH (11:54)
[2016-12-11] MEDS: MONTELUKAST 10 MG TABLET PO SCH (11:55)
[2016-12-11] MEDS: CARVEDILOL 6.25 MG TABLET PO SCH ×2 (11:55→20:54)
[2016-12-11] MEDS: CLOPIDOGREL 75 MG TABLET PO SCH (11:55)
[2016-12-11] MEDS: GLYCOPYRROLATE INH SCH (11:56)
[2016-12-11] MEDS: FORMOTEROL FUM INH SCH (11:56)
[2016-12-11 12:05] LABS: Band Neutrophils 14 % (0-10); Hypochromasia 1+; Lymphocytes 9 % (20-55); Segmented Neutrophils 71 % (50-85); Total Cells Counted 100
[2016-12-11 12:17] LABS: Albumin 2.9 G/DL (3.4-5.0); Bilirubin,Total 0.4 MG/DL (0.2-1.0); Calcium 8.8 MG/DL (8.5-10.1); Osmolality,Calculated 295.8 MOS/KG (273-304); Potassium 3.8 MMOL/L (3.5-5.1); Total Protein 6.1 G/DL (6.4-8.3)
[2016-12-11] MEDS: metroNIDAZOLE INJ 500 MG in PREMIX 1 EACH IV SCH ×2 (16:13→23:21)
[2016-12-11] MEDS: LEVOFLOXACIN INJ 750 MG in PREMIX 1 EACH IV SCH (16:14)
--- NOTE | 2016-12-11 17:03 | XRay Report ---
Chest for nasogastric tube placement. The heart is enlarged. There is left atrial prominence. Interstitial markings are prominent. Mild atelectasis has developed in the left base. Numerous surgical clips in the upper abdomen. The distal tip of a nasogastric tube is in the body of the stomach. Degenerative changes are noted within the spinal column. Impression: Development of left basilar atelectasis. Satisfactory nasogastric tube placement. PROCEDURE INTERPRETED AT [facility] ([place] DEPARTMENT OF RADIOLOGY Final Report Signed by: Dr. Mellisa Yun
[2016-12-11] MEDS ORDERED: HYDROmorphone 2 MG/1 ML VIAL IV ONE (17:36)
[2016-12-12] MEDS: ALBUTEROL/IPRATROPIUM 3 ML NEB RESP TX SCH ×5 (02:40→20:43)
[2016-12-12] MEDS: SODIUM CHLORIDE 0.9% 1,000 ML IV SCH (05:21)
[2016-12-12] MEDS: metroNIDAZOLE INJ 500 MG in PREMIX 1 EACH IV SCH ×3 (06:24→22:53)
[2016-12-12 06:36] LABS: Basophils # 0.1 10*3/uL (0.0-0.2); Basophils % 0.2 % (0.0-0.8); Immature Granulocytes % 1.8 %; Immature Granulocytes Absolute 0.55 #; Lymphocytes # 2.2 10*3/uL (1.4-4.0); Mean Corpuscular HGB Conc 31.4 GM/DL (32-36); Mean Corpuscular Hemoglobin 31 PG (27-34); Mean Corpuscular Volume 97.5 FL (87-102); Mean Platelet Volume 12.9 FL (9.6-12.0); Monocytes # 2.7 10*3/uL (0.11-0.8); Monocytes % 8.6 % (1.7-12.7); NRBC # 0.03 10*3/uL; Neutrophils # 25.4 10*3/uL (1.4-7.4); Neutrophils % 82.4 % (38.7-73.9); Platelet Count 169 T/CUMM (130-400); Red Blood Count 3.59 MC/CUMM (3.8-5.5); Red Cell Distribution Width 14.5 % (9.3-17.3); White Blood Count 30.8 T/CUMM (4-12)
--- NOTE | 2016-12-12 06:54 | Hospitalist Progress Note ---
Assessment and Plan - Time spent with patient Time spent with patient: Less than 30 minutes (1) Diarrhea Status: Chronic Assessment and plan: GI is continuing to follow. Stool studies are currently pending. She is on empiric antibiotic therapy. Current Visit: Yes (2) Nausea & vomiting Status: Acute Assessment and plan: She has NG tube in place. Will continue parenteral antiemetics as needed. Will await further GI assessment and recommendations. Current Visit: Yes (3) Hypertension Status: Chronic Assessment and plan: Currently well controlled on current regimen. Current Visit: No Qualifiers: Hypertension type: essential hypertension Qualified Code(s): I10 - Essential (primary) hypertension (4) Diabetes mellitus Problem details: Home meds. Continue insulin coverage. Status: Chronic Assessment and plan: Blood sugars well controlled. Continue Accu-Cheks with sliding scale insulin. Current Visit: No Qualifiers: Diabetes mellitus type: type 2 (5) Chronic kidney disease Problem details: Monitor BUN/Cr Status: Chronic Assessment and plan: Morning BUN and creatinine currently pending. Continue cautious IV hydration and avoidance of any nephrotoxic insults or drugs. Current Visit: No Qualifiers: Chronic kidney disease stage: stage 3 (moderate) Qualified Code(s): N18.3 - Chronic kidney disease, stage 3 (moderate) (6) COPD (chronic obstructive pulmonary disease) Status: Chronic Assessment and plan: No shortness of breath or wheezing apparent. Continue home regimen. Current Visit: No Qualifiers: COPD type: chronic bronchitis (7) Chronic combined systolic and diastolic CHF (congestive heart failure) Status: Chronic Assessment and plan: Appears to be well compensated at this time. Cautiously hydrating with her nausea vomiting and diarrhea. Continuing to follow closely. Current Visit: Yes (8) Bimalleolar fracture of left ankle Status: Acute Assessment and plan: Per orthopedics. Current Visit: Yes Hospitalist: Subjective Interval history: Ms. Nava complains of abdominal discomfort with associated nausea and vomiting this morning after getting up to go to the bathroom. She states she has had no diarrhea but family member state that she did have an episode last evening. She denies any chest pain nor shortness of breath at this time. She and family request a Kunz catheter placement as she is extremely uncomfortable and nauseated with upon sitting up. Exam - Constitutional Vitals: Period Temp Pulse Resp BP Sys/Blanc Pulse Ox Last 24 Hr 97.2 F-99.5 F 74-96 16-20 90-122/36-52 90-100 General appearance: mild distress - Head Head exam: Present: normocephalic, atraumatic - Eye Eye exam: Present: EOMI Pupils: Present: ULBA - ENT ENT exam: Present: normal exam - Neck Neck exam: Present: normal inspection - Respiratory Respiratory exam: Present: clear to auscultation bilaterally. Absent: rales, rhonchi, wheezes - Cardiovascular Cardiovascular exam: Present: regular rate and rhythm. Absent: gallop, JVD, tachycardia - GI/Abdominal GI/Abdominal exam: Present: normal bowel sounds, tenderness (Diffusely tender), soft. Absent: rebound - Extremities Exam Extremities exam: Absent: calf tenderness, edema - Neurological Exam Neurological exam: Present: alert, oriented X3, CN II-XII intact. Absent: motor sensory deficit - Psychiatric Psychiatric exam: Present: normal affect, normal mood. Absent: agitated, anxious - Skin Skin exam: Present: warm, dry. Absent: erythema, rash Results - Labs CBC & BMP: 12/12/16 05:18 12/11/16 11:19 Lab Results: I have reviewed the past 24 hour labs Specialty Discharge - Follow Up or Referrals Follow up with: Garth Anglin Jr., MD [Physician] - 12/22/16 9:25 am
[2016-12-12 07:09] LABS: Albumin 2.6 G/DL (3.4-5.0); Bilirubin,Total 0.5 MG/DL (0.2-1.0); Calcium 8.8 MG/DL (8.5-10.1); Osmolality,Calculated 301.4 MOS/KG (273-304); Potassium 3.5 MMOL/L (3.5-5.1); Total Protein 5.8 G/DL (6.4-8.3)
[2016-12-12 07:46] LABS: Band Neutrophils 15 % (0-10); Hypochromasia Slight; Lymphocytes 7 % (20-55); Platelet Estimate Adequate; Promyelocytes 1 %; Segmented Neutrophils 67 % (50-85); Total Cells Counted 100
[2016-12-12] MEDS: VALSARTAN 80 MG TABLET PO SCH (08:03)
[2016-12-12] MEDS: PANTOPRAZOLE 40 MG TABLET PO SCH ×2 (08:04→10:04)
--- NOTE | 2016-12-12 08:13 | Orthopedic Progress Note ---
Assessment and Plan (1) Nausea & vomiting Status: Acute Assessment and plan: Managed by medicine and GI Current Visit: Yes (2) Bimalleolar fracture of left ankle Status: Acute Assessment and plan: Continued care: Nonweightbearing left lower extremity, PT, DVT prophylaxis, pain control No further orthopedic intervention needed. Follow-up with Dr. Anglin as outpatient Current Visit: Yes Orthopedics - Subjective Interval history: Patient still complaining of nausea and vomiting. NG tube in place. Exam - Constitutional Vitals: Period Temp Pulse Resp BP Sys/Blanc Pulse Ox Last 24 Hr 97.2 F-99.5 F 77-104 16-28 90-150/36-72 90-100 - Extremities Exam Extremities exam: Present: normal inspection (Left lower extremity: Splint clean , dry, intact. Good active range of motion toes. Compartments are soft. Sensations intact. Capillary refill brisk) Results - Labs CBC & BMP: 12/12/16 05:18 12/12/16 05:18 Lab Results: I have reviewed the past 24 hour labs Specialty Discharge - Follow Up or Referrals Follow up with: Garth Anglin Jr., MD [Physician] - 12/22/16 9:25 am
[2016-12-12] MEDS: ONDANSETRON 4 MG/2 ML VIAL IV PRN ×2 (08:31→15:47)
[2016-12-12] MEDS: HYDROmorphone 2 MG/1 ML VIAL IV PRN ×2 (08:31→16:51)
[2016-12-12] MEDS: SODIUM CHLOR 0.45% KCL 20 MEQ 20 MEQ/1,000 ML BAG IV SCH ×2 (09:04→20:21)
[2016-12-12] MEDS: GLYCOPYRROLATE INH SCH (10:03)
[2016-12-12] MEDS: FORMOTEROL FUM INH SCH (10:03)
[2016-12-12] MEDS: CARVEDILOL 6.25 MG TABLET PO SCH ×2 (10:03→21:01)
[2016-12-12] MEDS: ASPIRIN EC 81 MG TABLET PO SCH (10:03)
[2016-12-12] MEDS: CLOPIDOGREL 75 MG TABLET PO SCH (10:04)
[2016-12-12] MEDS: MONTELUKAST 10 MG TABLET PO SCH (10:04)
--- NOTE | 2016-12-12 11:30 | Gastrointestinal Progress Note ---
Assessment and Plan - Time spent with patient Time spent with patient: Greater than 30 minutes (1) Diarrhea Status: Chronic Current Visit: Yes (2) Nausea & vomiting Status: Acute Current Visit: Yes (3) Other specified counseling Status: Acute Current Visit: Yes Exam (Progress Note) - Constitutional Vitals: Period Temp Pulse Resp BP Sys/Blanc Pulse Ox Last 24 Hr 97.2 F-99.5 F 80-104 16-28 90-150/36-72 90-100 Results - Labs CBC & BMP: 12/12/16 05:18 12/12/16 05:18 Specialty Discharge - Follow Up or Referrals Follow up with: Garth Anglin Jr., MD [Physician] - 12/22/16 9:25 am Note Addendum: PLEASE NOTE -- automatic citation of patient information is unavoidable in this electronic note. I have made a reasonable effort to review the information cited , but it is not a part of my evaluation, impression, or recommendation unless specifically discussed in the dictated text that follows. As well, voice recognition software was used in the creation of this clinical note. Reasonable effort was made to identify and correct gross errors. Despite proofreading, errors in rail assembler may be present, including nonsense verbiage at times. If you encounter such an error, please contact me at [phone] for discussion and correction. -- Mansi Chief complaint: diarrhea Subjective: the patient is a 71-year-old female seen for follow-up of nausea, vomiting, and diarrhea. She is being treated against the possibility of ileus with nasogastric decompression. Dr. Diamond has recommended a change from clindamycin given the strong association with antibiotic associated diarrhea and pseudo-membranous colitis and that appears to have been done. The patient has screened negative for Clostridium difficile during prior admission (September of this year) and repeat assay has been ordered but not yet collected. The patient is tolerating nasogastric decompression and reports some improvement of symptoms overnight. She also notes that diarrhea has improved somewhat. Medications: Duoneb, aspirin, Coreg, Plavix, Regent, Dilaudid, levofloxacin, metronidazole, Singulair, Zofran, Protonix, 1/2NS infusion, Phenergen, Zoloft Review of Symptoms: 12 point review of symptoms was negative except as noted above Physical examination: Vital Signs: Current vital signs reviewed. General Appearance: lying in bed, gastric decompression in place with clear green file evident in the collection container. Otherwise without distress. Head: Normocephalic. Eyes: no scleral icterus. No scleral injection. No conjunctival pallor. Oral Cavity: Odor of breath was normal. No drooling was observed. Lips showed no abnormalities. Lungs: Respiration rhythm and depth was normal. Cardiovascular: Heart rate and rhythm were normal. Abdomen: abdomen was not distended. Abdominal auscultation revealed no abnormalities. Ascites was not discovered. Abdominal palpation revealed minimal tenderness and no hepatosplenomegaly. Musculoskeletal System: musculoskeletal system was grossly normal. Neurological: level of consciousness was normal. Speech was normal. No coordination/cerebellum abnormalities were noted. Skin: Gen. appearance was normal. Color and pigmentation were normal. No skin lesions were appreciated. Laboratory: what blood count 31, hemoglobin 11.0, hematocrit 35.0, platelets 169 , INR 1.0, PT 10.1, ALT 17, AST 36, alkaline phosphatase 111, albumin 2.6, total bilirubin 0.5 Radiology: --KUB, December 11, 2016: no specific abnormality of the bowel gas pattern Impressions: 1. Diarrhea -- most likely antibiotic associated. Still cultures and Clostridium difficile screen are pending. I recommend continued supportive care for now and will follow-up with further recommendations pending the results of those tests. 2. Nausea and vomiting -- the patient reports improvement with nasogastric decompression. She does have bowel sounds and is having some bowel output. Continued volume and electrolyte control is most likely to make a positive difference in this regard. 3. Other specified counseling -- Patient seen for greater than 30 minutes. Greater than 50% of this time was spent counseling regarding differential diagnosis, likely diagnosis,, diagnostic and therapeutic options, risks, benefits, and alternatives to procedures and medications, informed consent, and plan of care generally. Patient has expressed understanding and wishes to proceed. Recommendations: -- continued nasogastric decompression -- agree with changing antibiotic regimen -- follow-up result of stool culture and C. diff assay -- continued volume and electrolyte control -- we will continue to follow with you
[2016-12-12 15:28] LABS: Apearance,Urine CLEAR (Clear); Bacteria,Urine Occasional /HPF (Few); Bilirubin,Urine Negative (Negative); Blood, Urine Negative (Negative); Glucose,Urine (UA) Negative (Negative); Hyaline Casts,Urine 4 /LPF (0-3); Ketones,Urine Negative (Negative); Mucus,Urine Occasional /LPF (Occasional); Nitrite,Urine Negative (Negative); Protein,Urine Negative; RBC,Urine <1 /HPF (0-4); Squamous Epithelial Cell,Urine Occasional /HPF (0-10); Urine Color Yellow (Yellow); Urine Specific Gravity 1.013 (1.001-1.035); Urine Urobilinogen < 2.0 EU/DL (0.2-1.0); WBC,Urine 1 /HPF (0-6)
[2016-12-13] MEDS: ALBUTEROL/IPRATROPIUM 3 ML NEB RESP TX SCH ×6 (00:51→19:31)
[2016-12-13 05:59] LABS: Basophils # 0.1 10*3/uL (0.0-0.2); Basophils % 0.3 % (0.0-0.8); Eosinophils # 0.1 10*3/uL (0.0-0.87); Eosinophils % 0.2 % (0.00-10.9); Hematocrit 33.2 VOL% (35.7-47.0); Hemoglobin 10.7 GM/DL (12.0-16.0); Immature Granulocytes % 1.6 %; Immature Granulocytes Absolute 0.56 #; Lymphocytes # 5.4 10*3/uL (1.4-4.0); Lymphocytes % 15.3 % (21.3-54.2); Mean Corpuscular HGB Conc 32.2 GM/DL (32-36); Mean Corpuscular Hemoglobin 31 PG (27-34); Mean Platelet Volume 12.4 FL (9.6-12.0); Monocytes # 2.2 10*3/uL (0.11-0.8); Monocytes % 6.2 % (1.7-12.7); NRBC # 0.07 10*3/uL; Neutrophils # 26.9 10*3/uL (1.4-7.4); Neutrophils % 76.4 % (38.7-73.9); Platelet Count 192 T/CUMM (130-400); Red Blood Count 3.46 MC/CUMM (3.8-5.5); Red Cell Distribution Width 14.7 % (9.3-17.3); White Blood Count 35.2 T/CUMM (4-12)
[2016-12-13 06:34] LABS: Calcium 8.5 MG/DL (8.5-10.1); Magnesium 2.3 MG/DL (1.8-2.4); Potassium 3.6 MMOL/L (3.5-5.1)
[2016-12-13] MEDS: metroNIDAZOLE INJ 500 MG in PREMIX 1 EACH IV SCH ×3 (06:35→22:12)
--- NOTE | 2016-12-13 07:21 | Hospitalist Progress Note ---
Assessment and Plan - Time spent with patient Time spent with patient: Less than 30 minutes (1) Diarrhea Status: Chronic Assessment and plan: GI is continuing to follow. Stool studies are currently pending. She is on empiric antibiotic therapy. 12/13/16: Continuing empiric IV Levaquin and Flagyl. Stool for C. difficile was negative. GI continues to follow and await any further recommendations at this time. Current Visit: Yes (2) Nausea & vomiting Status: Acute Assessment and plan: She has NG tube in place. Will continue parenteral antiemetics as needed. GI continues to follow. Current Visit: Yes (3) Hypertension Status: Chronic Assessment and plan: Currently well controlled on current regimen. Current Visit: No Qualifiers: Hypertension type: essential hypertension Qualified Code(s): I10 - Essential (primary) hypertension (4) Diabetes mellitus Problem details: Home meds. Continue insulin coverage. Status: Chronic Assessment and plan: Blood sugars well controlled. Continue Accu-Cheks with sliding scale insulin. Current Visit: No Qualifiers: Diabetes mellitus type: type 2 (5) Chronic kidney disease Problem details: Monitor BUN/Cr Status: Chronic Assessment and plan: Morning BUN and creatinine currently pending. Continue cautious IV hydration and avoidance of any nephrotoxic insults or drugs. 12/13/16: Patient had a acute kidney injury on top of chronic kidney disease. Her creatinine has improved to 1.1 today. Continue hydration and correction of electrolytes. Will change IV fluids to D5W with 40 mEq KCl at 1 25 cc/h and follow-up BMP in the a.m. Watching fluid status closely with her history of CHF. Current Visit: No Qualifiers: Chronic kidney disease stage: stage 3 (moderate) Qualified Code(s): N18.3 - Chronic kidney disease, stage 3 (moderate) (6) COPD (chronic obstructive pulmonary disease) Status: Chronic Assessment and plan: No shortness of breath or wheezing apparent. Continue home regimen. Current Visit: No Qualifiers: COPD type: chronic bronchitis (7) Chronic combined systolic and diastolic CHF (congestive heart failure) Status: Chronic Assessment and plan: Appears to be well compensated at this time. Cautiously hydrating with her nausea vomiting and diarrhea. Continuing to follow closely. Current Visit: Yes (8) Bimalleolar fracture of left ankle Status: Acute Assessment and plan: Per orthopedics. Current Visit: Yes Hospitalist: Subjective Interval history: Ms. Nava says she is feeling a little bit better today. She states that she has had no diarrhea since yesterday afternoon. She continues to have nausea but no distinct vomiting. She has an NG tube in place. Her daughter is present and has multiple questions about her medications, hydration and nutrition, which were all addressed. Exam - Constitutional Vitals: Period Temp Pulse Resp BP Sys/Blanc Pulse Ox Last 24 Hr 98.0 F-98.9 F 83-100 16-28 117-164/40-69 94-98 General appearance: no acute distress - Head Head exam: Present: normocephalic, atraumatic - Eye Eye exam: Present: EOMI Pupils: Present: LUBA - ENT ENT exam: Present: normal exam - Neck Neck exam: Present: normal inspection - Respiratory Respiratory exam: Present: clear to auscultation bilaterally. Absent: rales, rhonchi, wheezes - Cardiovascular Cardiovascular exam: Present: regular rate and rhythm. Absent: tachycardia - GI/Abdominal GI/Abdominal exam: Present: normal bowel sounds, tenderness (Diffusely tender but seems to be greater on the right upper and lower quadrant), soft. Absent: rebound - Extremities Exam Extremities exam: Absent: calf tenderness, edema - Back Exam Back exam: Present: normal inspection - Neurological Exam Neurological exam: Present: alert, oriented X3, CN II-XII intact. Absent: motor sensory deficit - Psychiatric Psychiatric exam: Present: normal affect, normal mood. Absent: agitated, anxious - Skin Skin exam: Present: warm, dry. Absent: rash Results - Labs CBC & BMP: 12/13/16 05:36 12/13/16 05:36 Lab Results: I have reviewed the past 24 hour labs Specialty Discharge - Follow Up or Referrals Follow up with: Garth Anglin Jr., MD [Physician] - 12/22/16 9:25 am
[2016-12-13 07:58] LABS: Band Neutrophils 6 % (0-10); Hypochromasia Slight; Lymphocytes 20 % (20-55); Microcytosis 1+; Platelet Estimate Adequate; Segmented Neutrophils 69 % (50-85); Total Cells Counted 100
[2016-12-13] MEDS: SODIUM CHLOR 0.45% KCL 20 MEQ 20 MEQ/1,000 ML BAG IV SCH (08:06)
[2016-12-13] MEDS: ASPIRIN EC 81 MG TABLET PO SCH (08:42)
[2016-12-13] MEDS: CARVEDILOL 6.25 MG TABLET PO SCH ×2 (08:42→22:07)
[2016-12-13] MEDS: POTASSIUM CHLORIDE INJ 40 MEQ in DEXTROSE 5% NACL 0.22% 1,000 ML IV SCH ×2 (08:42→22:14)
[2016-12-13] MEDS: GLYCOPYRROLATE INH SCH (08:42)
[2016-12-13] MEDS: FORMOTEROL FUM INH SCH (08:42)
[2016-12-13] MEDS: PANTOPRAZOLE 40 MG TABLET PO SCH (08:43)
[2016-12-13] MEDS: CLOPIDOGREL 75 MG TABLET PO SCH (08:43)
[2016-12-13] MEDS: MONTELUKAST 10 MG TABLET PO SCH (08:43)
--- NOTE | 2016-12-13 11:52 | Gastrointestinal Progress Note ---
Assessment and Plan - Time spent with patient Time spent with patient: Less than 30 minutes (1) Diarrhea Status: Chronic Current Visit: Yes (2) Nausea & vomiting Status: Acute Current Visit: Yes (3) Other specified counseling Status: Acute Current Visit: Yes Exam (Progress Note) - Constitutional Vitals: Period Temp Pulse Resp BP Sys/Blanc Pulse Ox Last 24 Hr 98.0 F-98.9 F 83-100 16-24 117-164/40-69 94-99 Results - Labs CBC & BMP: 12/13/16 05:36 12/13/16 05:36 Specialty Discharge - Follow Up or Referrals Follow up with: Garth Anglin Jr., MD [Physician] - 12/22/16 9:25 am Note Addendum: PLEASE NOTE -- automatic citation of patient information is unavoidable in this electronic note. I have made a reasonable effort to review the information cited , but it is not a part of my evaluation, impression, or recommendation unless specifically discussed in the dictated text that follows. As well, voice recognition software was used in the creation of this clinical note. Reasonable effort was made to identify and correct gross errors. Despite proofreading, errors in dispatcher ship pilot may be present, including nonsense verbiage at times. If you encounter such an error, please contact me at for discussion and correction. -- Mansi Chief complaint: diarrhea Subjective: the patient is a 71-year-old female seen for follow-up of nausea, vomiting, and diarrhea. She is being treated against the possibility of ileus with nasogastric decompression and output into the NG drain has decreased significantly. The patient has screened negative for C diff infection. The patient continues to tolerate nasogastric decompression with improvement of symptoms. She has significantly decreased bowel output with one movement yesterday and only one so far today. Medications: Duoneb, aspirin, Coreg, Plavix, Anthony, Dilaudid, levofloxacin, metronidazole, Singulair, Zofran, Protonix, 1/2NS infusion, Phenergen, Zoloft Review of Symptoms: 12 point review of symptoms was negative except as noted above Physical examination: Vital Signs: Current vital signs reviewed. General Appearance: lying in bed, gastric decompression in place with clear green file evident in the collection container. Otherwise without distress. Head: Normocephalic. Eyes: no scleral icterus. No scleral injection. No conjunctival pallor. Oral Cavity: Odor of breath was normal. No drooling was observed. Lips showed no abnormalities. Lungs: Respiration rhythm and depth was normal. Cardiovascular: Heart rate and rhythm were normal. Abdomen: abdomen was not distended. Abdominal auscultation revealed no abnormalities. Ascites was not discovered. Abdominal palpation revealed minimal tenderness and no hepatosplenomegaly. Musculoskeletal System: musculoskeletal system was grossly normal. Neurological: level of consciousness was normal. Speech was normal. No coordination/cerebellum abnormalities were noted. Skin: Gen. appearance was normal. Color and pigmentation were normal. No skin lesions were appreciated. Laboratory: white blood count 35.2, hemoglobin 10.7, hematocrit 33.2, platelets 192 Radiology: --KUB, December 11, 2016: no specific abnormality of the bowel gas pattern Impressions: 1. Diarrhea -- diarrhea has improved significantly. Clostridium difficile assay is negative. It is unclear whether leukocytosis is related to diarrhea or some other cause. With near complete resolution of diarrhea, certainly alternative diagnoses should be considered and screened against. 2. Nausea and vomiting -- the patient reports improvement with nasogastric decompression. She does have bowel sounds. Continued volume and electrolyte control is most likely to make a positive difference in this regard. 3. Other specified counseling -- Patient seen for lesd than 30 minutes. Greater than 50% of this time was spent counseling regarding differential diagnosis, likely diagnosis,, diagnostic and therapeutic options, risks, benefits, and alternatives to procedures and medications, informed consent, and plan of care generally. Patient has expressed understanding and wishes to proceed. Recommendations: -- continued nasogastric decompression, may be able to discontinue tomorrow -- agree with continued antibiotic regimen -- Consider alternative, non-gastrointestinal, etiology for leukocytosis -- continued volume and electrolyte control -- we will continue to follow with you. Dr. Diamond will resume G.I. care for this patient tomorrow.
[2016-12-13] MEDS: HYDROmorphone 2 MG/1 ML VIAL IV PRN (15:21)
[2016-12-13] MEDS: LEVOFLOXACIN INJ 750 MG in PREMIX 1 EACH IV SCH (16:16)
[2016-12-14] MEDS: ALBUTEROL/IPRATROPIUM 3 ML NEB RESP TX SCH ×6 (00:12→20:33)
[2016-12-14] MEDS: POTASSIUM CHLORIDE INJ 40 MEQ in DEXTROSE 5% NACL 0.22% 1,000 ML IV SCH ×3 (00:30→21:02)
[2016-12-14 05:46] LABS: Basophils # 0.1 10*3/uL (0.0-0.2); Basophils % 0.3 % (0.0-0.8); Eosinophils # 0.2 10*3/uL (0.0-0.87); Eosinophils % 0.8 % (0.00-10.9); Hemoglobin 10.4 GM/DL (12.0-16.0); Immature Granulocytes % 1.1 %; Immature Granulocytes Absolute 0.32 #; Lymphocytes # 3.5 10*3/uL (1.4-4.0); Mean Corpuscular HGB Conc 31.5 GM/DL (32-36); Mean Corpuscular Hemoglobin 30 PG (27-34); Mean Corpuscular Volume 96.5 FL (87-102); Mean Platelet Volume 12.2 FL (9.6-12.0); Monocytes # 1.8 10*3/uL (0.11-0.8); Monocytes % 6.3 % (1.7-12.7); NRBC # 0.06 10*3/uL; Neutrophils # 23.1 10*3/uL (1.4-7.4); Neutrophils % 79.5 % (38.7-73.9); Platelet Count 204 T/CUMM (130-400); Red Blood Count 3.42 MC/CUMM (3.8-5.5); Red Cell Distribution Width 14.7 % (9.3-17.3)
[2016-12-14 06:15] LABS: Albumin 2.3 G/DL (3.4-5.0); Bilirubin,Total 0.4 MG/DL (0.2-1.0); Osmolality,Calculated 294.4 MOS/KG (273-304); Total Protein 5.1 G/DL (6.4-8.3)
[2016-12-14 06:31] LABS: Band Neutrophils 12 % (0-10); Hypochromasia Slight; Lymphocytes 5 % (20-55); Platelet Estimate Adequate; Segmented Neutrophils 79 % (50-85); Total Cells Counted 100
--- NOTE | 2016-12-14 08:24 | Orthopedic Progress Note ---
Assessment and Plan (1) Bimalleolar fracture of left ankle Status: Acute Current Visit: Yes Orthopedics - Subjective Interval history: Splint clean dry and intact mobilizing slowly NG tube still in place Exam - Constitutional Vitals: Period Temp Pulse Resp BP Sys/Blanc Pulse Ox Last 24 Hr 97.5 F-98.2 F 69-98 16-20 126-144/46-54 93-100 Results - Labs CBC & BMP: 12/14/16 04:19 12/14/16 04:19 Specialty Discharge - Follow Up or Referrals Follow up with: Garth Anglin Jr., MD [Physician] - 12/22/16 9:25 am
[2016-12-14] MEDS: metroNIDAZOLE INJ 500 MG in PREMIX 1 EACH IV SCH ×3 (08:27→22:42)
--- NOTE | 2016-12-14 09:39 | Gastrointestinal Progress Note ---
<CadenceDarlene Maldonado - Last Filed: 12/14/16 09:35> Assessment and Plan (1) Diarrhea Status: Chronic Assessment and plan: 12/14-continued gastric output however decreased at present. Diarrhea stools are improved. Tolerating ice chips. Stool studies noted to be negative. Continue to monitor this time. Plan an addendum to follow Dr. Diamond. 12/11-several week history of episodic diarrhea with abdominal pain and cramping. Multiple antibiotic use in September during hospitalization and postdischarge. Reported recent hospital stay in November with negative Clostridium difficile. 20 pound weight loss over the last 3-4 weeks. No prior endoscopy history. Check stool studies. Plan an addendum to follow by Dr. Diamond. Current Visit: Yes (2) Nausea & vomiting Status: Acute Assessment and plan: 12/11-several year history of cyclic episodes of nausea and vomiting, with exacerbation this morning with intractable vomiting. Postop ankle fracture repair yesterday. KUB is pending at present time. Plan an addendum to follow by Dr. Diamond. Current Visit: Yes Gastroenterology - PN: Subj Interval history: CC: Diarrhea Patient is seen awake and alert performing her physical therapy exercises during visit. Son-in-law is at bedside. Patient has had some improvements over the weekend per family. NG tube is still patent to intermittent suction with decrease in gastric secretions. She did have some emesis over the NG tube over the weekend however this is improved. She is denying any nausea or vomiting at present time. Her stool studies are noted to be negative at this time. Leukocytosis improving as well with a trend downward in her WBCs now 29, 000. She is having less diarrhea stools and states she did not have any incontinence with this on yesterday. Overall they feel like her symptoms are improving from onset. Patient's son-in-law states he has concerns that the patient's Diovan on has caused some of the symptoms that she has due to they feel like her symptoms started when she was discharged home in September of this medication. This appears to be on hold at this time. Abdomen is soft, nontender. ROS: Denies shortness of breath or chest pain Exam (Progress Note) - Constitutional Vitals: Period Temp Pulse Resp BP Sys/Blanc Pulse Ox Last 24 Hr 97.5 F-98.2 F 69-98 16-20 126-144/46-54 93-100 General appearance: normal weight, no acute distress - Head Head exam: Present: normal inspection, normocephalic - Eye Eye exam: Present: other (Lids and conjunctive are unremarkable). Absent: scleral icterus - ENT ENT exam: Present: normal exam, normal oropharynx - Neck Neck exam: Present: normal inspection - Respiratory Respiratory exam: Present: clear to auscultation bilaterally. Absent: rales, rhonchi, wheezes - Cardiovascular Cardiovascular exam: Present: regular rate and rhythm. Absent: diastolic murmur , JVD, systolic murmur - GI/Abdominal GI/Abdominal exam: Present: normal bowel sounds, soft. Absent: ascites, distended, mass, organomegaly, tenderness - Extremities Exam Extremities exam: Present: normal inspection, full ROM - Back Exam Back exam: Present: normal inspection - Neurological Exam Neurological exam: Present: alert, oriented X3 - Psychiatric Psychiatric exam: Present: normal affect, normal mood - Skin Skin exam: Present: normal color, warm, dry Results - Labs CBC & BMP: 12/14/16 04:19 12/14/16 04:19 Lab Results: I have reviewed the past 24 hour labs Specialty Discharge - Follow Up or Referrals Follow up with: Garth Anglin Jr., MD [Physician] - 12/22/16 9:25 am <Monroe Diamond - Last Filed: 12/14/16 18:15> Exam (Progress Note) - Constitutional Vitals: Period Temp Pulse Resp BP Sys/Blanc Pulse Ox Last 24 Hr 97.5 F-99.6 F 67-98 16-20 126-144/46-54 93-100 Results - Labs CBC & BMP: 12/14/16 04:19 12/14/16 04:19
[2016-12-14] MEDS: CARVEDILOL 6.25 MG TABLET PO SCH ×2 (10:31→21:03)
--- NOTE | 2016-12-14 15:30 | Hospitalist Progress Note ---
Assessment and Plan (1) Ileus Status: Acute Assessment and plan: Appears to be improving. No further nausea. NG tube is clamped. Will advance to clear liquids. Decrease IV fluids. Continue to encourage p.o. fluids. Current Visit: Yes (2) COPD exacerbation Status: Acute Current Visit: No (3) Hypertension Status: Chronic Current Visit: No Qualifiers: Hypertension type: essential hypertension Qualified Code(s): I10 - Essential (primary) hypertension (4) Diabetes mellitus Problem details: Home meds. Continue insulin coverage. Status: Chronic Current Visit: No Qualifiers: Diabetes mellitus type: type 2 Hospitalist: Subjective Interval history: The patient is sitting up in bed resting comfortably. She does have an NG tube in place but has been clamped today. No further nausea. She has been able to tolerate water today. Family members had questions as relates to restarting some of her home meds and this was explained to them that she will restart medicines when she is able to tolerate clear liquids. No fevers or chills. WBC count is trending down. Serum sodium levels also trending down. Exam - Constitutional Vitals: Period Temp Pulse Resp BP Sys/Blanc Pulse Ox Last 24 Hr 97.5 F-98.6 F 67-98 16-20 126-144/46-54 93-100 General appearance: over weight - Head Head exam: Present: normal inspection - ENT ENT exam: Present: other (NG tube in place.) - Neck Neck exam: Present: normal inspection - Respiratory Respiratory exam: Present: clear to auscultation bilaterally - Cardiovascular Cardiovascular exam: Present: regular rate and rhythm - GI/Abdominal GI/Abdominal exam: Present: normal bowel sounds - Neurological Exam Neurological exam: Present: alert, oriented X3, CN II-XII intact - Psychiatric Psychiatric exam: Present: normal affect, normal mood - Skin Skin exam: Present: normal color, warm, dry Results - Labs CBC & BMP: 12/14/16 04:19 12/14/16 04:19 Specialty Discharge - Follow Up or Referrals Follow up with: Garth Anglin Jr., MD [Physician] - 12/22/16 9:25 am
[2016-12-14] MEDS: PANTOPRAZOLE 40 MG TABLET PO SCH (15:55)
[2016-12-14] MEDS: CLOPIDOGREL 75 MG TABLET PO SCH (15:55)
[2016-12-14] MEDS: ASPIRIN EC 81 MG TABLET PO SCH (15:55)
[2016-12-14] MEDS: MONTELUKAST 10 MG TABLET PO SCH (15:55)
[2016-12-14] MEDS: FORMOTEROL FUM INH SCH (15:57)
[2016-12-14] MEDS: GLYCOPYRROLATE INH SCH (15:57)
[2016-12-14] MEDS: LEVOFLOXACIN INJ 750 MG in PREMIX 1 EACH IV SCH (17:46)
[2016-12-14] MEDS: DESITIN 4OZ/NYSTATIN 15 GRAM MIXTURE PASTE TOP SCH (21:03)
[2016-12-15] MEDS: ALBUTEROL/IPRATROPIUM 3 ML NEB RESP TX SCH ×6 (02:38→19:51)
[2016-12-15 06:36] LABS: Calcium 8.3 MG/DL (8.5-10.1); Osmolality,Calculated 287.7 MOS/KG (273-304); Potassium 4.5 MMOL/L (3.5-5.1)
[2016-12-15] MEDS: metroNIDAZOLE INJ 500 MG in PREMIX 1 EACH IV SCH ×3 (06:53→23:18)
--- NOTE | 2016-12-15 07:28 | Hospitalist Progress Note ---
Assessment and Plan (1) COPD (chronic obstructive pulmonary disease) Status: Chronic Assessment and plan: Long history of tobacco use with terminating hospitalizations in September, secondary mucoid impaction with respiratory failure requiring mechanical ventilation. Successful cessation of tobacco product use following discharge. Current Visit: No Qualifiers: COPD type: chronic bronchitis (2) Atherosclerotic cardiovascular disease Status: Chronic Assessment and plan: Previous left anterior descending coronary artery stenting. Recent echocardiogram showing ejection fraction 40%. Bilateral carotid bruits with prominent intra-abdominal bruits. Current Visit: No (3) Bimalleolar fracture of left ankle Status: Acute Current Visit: Yes (4) Diarrhea Status: Chronic Assessment and plan: She appears to have long-standing GI complaints most recently she has been bothered by liquid diarrhea. She did receive a prolonged course of antibiotics in September but apparently was not found to have C. difficile during a hospitalization in November at her local hospital she continued to have diarrhea and attributes her injury due to weakness from long-standing diarrhea. She is developed a postoperative ileus requiring the use of NG suction. Current Visit: Yes Hospitalist: Subjective Interval history: 71-year-old female who sustained a left ankle fracture with repair on 10 December. Patient has had chronic bowel problems off and on consisting primarily of diarrhea. She in fact attributed her fall to dehydration because of frequent bowel movements. The patient had been extensively exposed antibiotics in September when she presented with exacerbation of COPD requiring intubation and mechanical ventilation. Respiratory failure was secondary to prominent mucoid impaction. Her postop course has been complicated by the development of ileus. Her NG tube is been clamped and she states that she has passed gas yesterday no nausea. Exam - Constitutional Vitals: Period Temp Pulse Resp BP Sys/Blanc Pulse Ox Last 24 Hr 97.3 F-99.6 F 65-77 18-20 126-147/46-51 94-100 General appearance: over weight - Respiratory Respiratory exam: Present: clear to auscultation bilaterally. Absent: rales, rhonchi, wheezes - Cardiovascular Cardiovascular exam: Present: carotid bruit (Bilateral), regular rate and rhythm , systolic murmur (Pattern consistent with aortic sclerosis) - GI/Abdominal GI/Abdominal exam: Present: hypoactive bowel sounds, other (Intra-abdominal bruits). Absent: distended, tenderness - Extremities Exam Extremities exam: Absent: edema - Neurological Exam Neurological exam: Present: alert, oriented X3 Results - Labs CBC & BMP: 12/14/16 04:19 12/15/16 05:41 Specialty Discharge - Follow Up or Referrals Follow up with: Garth Anglin Jr., MD [Physician] - 12/22/16 9:25 am
--- NOTE | 2016-12-15 07:36 | Hospitalist Progress Note ---
Assessment and Plan (1) COPD (chronic obstructive pulmonary disease) Status: Chronic Assessment and plan: Long history of tobacco use with terminating hospitalizations in September, secondary mucoid impaction with respiratory failure requiring mechanical ventilation. Successful cessation of tobacco product use following discharge. Current Visit: No Qualifiers: COPD type: chronic bronchitis (2) Atherosclerotic cardiovascular disease Status: Chronic Assessment and plan: Previous left anterior descending coronary artery stenting. Recent echocardiogram showing ejection fraction 40%. Bilateral carotid bruits with prominent intra-abdominal bruits. Current Visit: No (3) Bimalleolar fracture of left ankle Status: Acute Current Visit: Yes (4) Diarrhea Status: Chronic Assessment and plan: She appears to have long-standing GI complaints most recently she has been bothered by liquid diarrhea. She did receive a prolonged course of antibiotics in September but apparently was not found to have C. difficile during a hospitalization in November at her local hospital she continued to have diarrhea and attributes her injury due to weakness from long-standing diarrhea. She is developed a postoperative ileus requiring the use of NG suction. Current Visit: Yes Exam - Constitutional Vitals: Period Temp Pulse Resp BP Sys/Blanc Pulse Ox Last 24 Hr 97.3 F-99.6 F 65-77 18-20 126-147/46-51 94-100 Results - Labs CBC & BMP: 12/14/16 04:19 12/15/16 05:41 Specialty Discharge - Follow Up or Referrals Follow up with: Garth Anglin Jr., MD [Physician] - 12/22/16 9:25 am
[2016-12-15] MEDS: ASPIRIN EC 81 MG TABLET PO SCH (09:17)
[2016-12-15] MEDS: DESITIN 4OZ/NYSTATIN 15 GRAM MIXTURE PASTE TOP SCH ×2 (09:18→20:56)
[2016-12-15] MEDS: PANTOPRAZOLE 40 MG TABLET PO SCH (09:18)
[2016-12-15] MEDS: CLOPIDOGREL 75 MG TABLET PO SCH (09:18)
[2016-12-15] MEDS: CARVEDILOL 6.25 MG TABLET PO SCH ×2 (09:18→20:56)
[2016-12-15] MEDS: MONTELUKAST 10 MG TABLET PO SCH (09:18)
--- NOTE | 2016-12-15 10:02 | Gastrointestinal Progress Note ---
<Darlene Vila Maldonado - Last Filed: 12/15/16 10:00> Assessment and Plan (1) Diarrhea Status: Chronic Assessment and plan: 12/15-No reports of diarrhea, passing large amount of flatus. NG clamped on yesterday. Plan and addendum to follow by Dr Diamond. 12/14-continued gastric output however decreased at present. Diarrhea stools are improved. Tolerating ice chips. Stool studies noted to be negative. Continue to monitor this time. Plan an addendum to follow Dr. Diamond. 12/11-several week history of episodic diarrhea with abdominal pain and cramping. Multiple antibiotic use in September during hospitalization and postdischarge. Reported recent hospital stay in November with negative Clostridium difficile. 20 pound weight loss over the last 3-4 weeks. No prior endoscopy history. Check stool studies. Plan an addendum to follow by Dr. Diamond. Current Visit: Yes (2) Nausea & vomiting Status: Acute Assessment and plan: 12/15-No further nausea or vomiting. NG clamped yesterday and has tolerated clear liquids x 2 meals. Will dc NG today and continue to monitor at this time. Plan and addendum to follow by Dr Diamond. 12/11-several year history of cyclic episodes of nausea and vomiting, with exacerbation this morning with intractable vomiting. Postop ankle fracture repair yesterday. KUB is pending at present time. Plan an addendum to follow by Dr. Diamond. Current Visit: Yes Gastroenterology - PN: Subj Interval history: CC: Diarrhea/nausea vomiting Patient is seen awake and alert resting in bed with family at bedside. States she had an uneventful night. Her NG tube was clamped on yesterday and she has tolerated a clear liquid diet last night and this morning. She states that she is belching and passing a large amount of flatus and has had no further diarrhea stools at this time. Abdomen is soft and nontender. Bowel sounds noted. ROS: Denies shortness of breath or chest Exam (Progress Note) - Constitutional Vitals: Period Temp Pulse Resp BP Sys/Blanc Pulse Ox Last 24 Hr 97.3 F-99.6 F 65-77 18-20 126-147/46-51 95-100 General appearance: normal weight, no acute distress - Head Head exam: Present: normal inspection, normocephalic - Eye Eye exam: Present: other (Lids objective unremarkable). Absent: scleral icterus - ENT ENT exam: Present: normal exam, normal oropharynx - Neck Neck exam: Present: normal inspection - Respiratory Respiratory exam: Present: clear to auscultation bilaterally. Absent: rales, rhonchi, wheezes - Cardiovascular Cardiovascular exam: Present: regular rate and rhythm. Absent: diastolic murmur , JVD, systolic murmur - GI/Abdominal GI/Abdominal exam: Present: normal bowel sounds, soft. Absent: ascites, distended, mass, organomegaly, tenderness - Extremities Exam Extremities exam: Present: normal inspection, full ROM - Back Exam Back exam: Present: normal inspection - Neurological Exam Neurological exam: Present: alert, oriented X3 - Psychiatric Psychiatric exam: Present: normal affect, normal mood - Skin Skin exam: Present: normal color, warm, dry Results - Labs CBC & BMP: 12/14/16 04:19 12/15/16 05:41 Lab Results: I have reviewed the past 24 hour labs Specialty Discharge - Follow Up or Referrals Follow up with: Garth Anglin Jr., MD [Physician] - 12/22/16 9:25 am <Monroe Diamond - Last Filed: 12/15/16 18:55> Exam (Progress Note) - Constitutional Vitals: Period Temp Pulse Resp BP Sys/Blanc Pulse Ox Last 24 Hr 97.3 F-99.0 F 61-77 16-19 118-147/46-67 95-100 Results - Labs CBC & BMP: 12/14/16 04:19 12/15/16 05:41
[2016-12-15] MEDS: FORMOTEROL FUM INH SCH (10:09)
[2016-12-15] MEDS: GLYCOPYRROLATE INH SCH (10:09)
--- NOTE | 2016-12-15 14:36 | Orthopedic Progress Note ---
Assessment and Plan (1) Bimalleolar fracture of left ankle Status: Acute Current Visit: Yes Orthopedics - Subjective Interval history: NG tube out no nausea passing gas hopefully making progress. Continue nonweightbearing on the left Exam - Constitutional Vitals: Period Temp Pulse Resp BP Sys/Blanc Pulse Ox Last 24 Hr 97.3 F-99.6 F 61-77 16-19 128-147/46-67 96-100 Results - Labs CBC & BMP: 12/14/16 04:19 12/15/16 05:41 Specialty Discharge - Follow Up or Referrals Follow up with: Garth Anglin Jr., MD [Physician] - 12/22/16 9:25 am
[2016-12-15] MEDS: POTASSIUM CHLORIDE INJ 40 MEQ in DEXTROSE 5% NACL 0.22% 1,000 ML IV SCH (19:03)
[2016-12-15] MEDS: LEVOFLOXACIN INJ 750 MG in PREMIX 1 EACH IV SCH (19:18)
[2016-12-15] MEDS ORDERED: diphenhydrAMINE CAP 25 MG CAPSULE PO PRN (22:52)
[2016-12-16] MEDS: ALBUTEROL/IPRATROPIUM 3 ML NEB RESP TX SCH ×4 (00:08→10:52)
[2016-12-16 06:12] LABS: Basophils # 0.1 10*3/uL (0.0-0.2); Basophils % 0.4 % (0.0-0.8); Eosinophils # 0.2 10*3/uL (0.0-0.87); Eosinophils % 1.4 % (0.00-10.9); Hematocrit 32.8 VOL% (35.7-47.0); Hemoglobin 10.4 GM/DL (12.0-16.0); Immature Granulocytes % 5.6 %; Immature Granulocytes Absolute 0.89 #; Lymphocytes # 3.8 10*3/uL (1.4-4.0); Lymphocytes % 24.2 % (21.3-54.2); Mean Corpuscular HGB Conc 31.7 GM/DL (32-36); Mean Corpuscular Hemoglobin 30 PG (27-34); Mean Corpuscular Volume 95.9 FL (87-102); Mean Platelet Volume 11.8 FL (9.6-12.0); Monocytes # 1.5 10*3/uL (0.11-0.8); Monocytes % 9.6 % (1.7-12.7); NRBC # 0.02 10*3/uL; Neutrophils # 9.3 10*3/uL (1.4-7.4); Neutrophils % 58.8 % (38.7-73.9); Platelet Count 215 T/CUMM (130-400); Red Blood Count 3.42 MC/CUMM (3.8-5.5); Red Cell Distribution Width 14.6 % (9.3-17.3); White Blood Count 15.9 T/CUMM (4-12)
[2016-12-16] MEDS: metroNIDAZOLE INJ 500 MG in PREMIX 1 EACH IV SCH (06:36)
[2016-12-16 06:44] LABS: Band Neutrophils 4 % (0-10); Eosinophils 1 % (0-10); Hypochromasia Slight; Lymphocytes 14 % (20-55); Myelocytes 4 %; Platelet Estimate Adequate; Segmented Neutrophils 70 % (50-85); Target Cells Slight; Total Cells Counted 100
[2016-12-16 06:46] LABS: Calcium 8.2 MG/DL (8.5-10.1); Potassium 4.5 MMOL/L (3.5-5.1)
--- NOTE | 2016-12-16 08:10 | Discharge Summary ---
Hospital Course - Hospital Course Hospital Course: Admitted for ORIF left ankle on December 10. Discharge was delayed after the patient developed a ileus postoperatively. This was treated with NG suction which was gradually withdrawn with successful resumption of oral intake at the time of discharge. Patient is being released to a rehab facility for recovery from her ankle and knee. Diagnosis - Discharge Diagnosis (1) COPD (chronic obstructive pulmonary disease) Status: Chronic (2) Atherosclerotic cardiovascular disease Status: Chronic (3) Bimalleolar fracture of left ankle Status: Acute (4) Diarrhea Status: Chronic Specialty Discharge - Follow Up or Referrals Follow up with: Garth Anglin Jr., MD [Physician] - 12/22/16 9:25 am Discharge Plan - Discharge Data Disposition: Swing Bed, [facility], [facility] Condition at Discharge: Stable Discharge Diet: advance to your usual diet Activity: as per physical therapy - Discharge Medications New HYDROcodone/ACETAMIN 7.5-325 [[place] 7.5-325] 2 tablet PO Q4H PRN #25 tablet PRN Reason: Pain Severe (8-10) Continue Pioglitazone HCl 30 mg PO DAILY Omeprazole [Prilosec] 20 mg PO BID Clopidogrel [Plavix] 75 mg PO DAILY Sertraline HCl 50 mg PO DAILY Montelukast Sodium 10 mg PO DAILY Aspirin EC Tab 81 mg PO DAILY Furosemide Tab [Lasix Tab] 40 mg PO DAILY #60 tablet Valsartan [Diovan] 80 mg PO BID #100 tablet Glycopyrrolate/Formoterol Fum [Bevespi Aerosphere Inhaler] 1 puff INH DAILY Carvedilol [Coreg] 6.25 mg PO BID #100 tablet - Follow Up or Referral Follow Up: Garth Anglin Jr., MD [Physician] - 12/22/16 9:25 am - Forms/Instructions Instructions: Open Reduction and Internal Fixation of an Ankle Fracture (DC) Exam - Constitutional Vitals: Period Temp Pulse Resp BP Sys/Blanc Pulse Ox Last 24 Hr 97.0 F-99.0 F 61-76 16-18 118-141/49-67 95-100 Discharge Results Procedures and tests throughout hospitalization: Pending Orders 12/11/16 11:19 Blood Culture Stat 12/12/16 17:50 Stool Culture Routine Labs on day of discharge: Labs from last 24 hours 12/16/16 12/16/16 05:44 05:44 WBC 15.9 H D RBC 3.42 L Hgb 10.4 L Hct 32.8 L MCV 95.9 MCH 30 MCHC 31.7 L RDW 14.6 Plt Count 215 MPV 11.8 Neut % (Auto) 58.8 Lymph % (Auto) 24.2 Sargent % (Auto) 9.6 Eos % (Auto) 1.4 Baso % (Auto) 0.4 Neut # (Auto) 9.3 H Lymph # (Auto) 3.8 Sargent # (Auto) 1.5 H Eos # (Auto) 0.2 Baso # (Auto) 0.1 Total Counted 100 Immature Gran % 5.6 Nucleated RBC % 0.1 Immature Gran # 0.89 Segmented Neutrophils 70 Band Neutrophils 4 Lymphocytes 14 L Monocytes 7 Eosinophils 1 Myelocytes 4 Nucleated RBCs # 0.02 Platelet Estimate Adequate Hypochromasia Slight Target Cells Slight Sodium 143 Potassium 4.5 Chloride 113 H Carbon Dioxide 22 Anion Gap 12.5 BUN 9 Creatinine 0.70 GFR Calculation 90 BUN/Creatinine Ratio 12.00 Glucose 89 Calculated Osmolality 282.0 Calcium 8.2 L Preliminary micro results at discharge 12/11/16 11:19 Blood Culture - Preliminary Blood No growth at 3 days 12/11/16 11:19 Blood Culture - Preliminary Blood No growth at 3 days 12/12/16 17:50 Stool Culture - Preliminary Stool No enteric pathogens at 24 hrs DS: Provider Date of admission: 12/11/16 11:30 Primary care physician: . No PCP Attending physician on admission: Garth Anglin Jr., MD Consults: 12/10/16 09:06 Consult to Physician [CONS] Routine Comment: Consulting Provider: Aron Schaefer Consulting Provider Notified: Yes When should Consulting Provider be notified: Now Person Notified: power called Date Notified: 12/10/16 Time Notified: 12:24 12/10/16 11:17 Consult to Physical Therapy [CONS] Routine Reason for Physical Therapy: Evaluate and Treat 12/10/16 11:20 Consult to Case Mgmt/Social Srvs [CONS] Routine Reason for Case Mgmt/Social Srvs: Home Health Rehab Equipment Consult Comment: Explore home versus rehab options Consult to Occupational Therapy [CONS] Routine Reason for Occupational Therapy: Evaluate and Treat 12/11/16 09:56 Consult to Physician [CONS] Routine Comment: to transfer pt to Dr. Schaefer as admt physician Consulting Provider: 12/11/16 10:03 Consult to Physician [CONS] Routine Comment: nausea and vomiting post operatively Consulting Provider: Monroe Diamond Consulting Provider Notified: Yes When should Consulting Provider be notified: Now Consult to Specialist Group: Gastroenterology Person Notified: amparo funes Date Notified: 12/11/16 Time Notified: 10:13 Discharging clinician: Aron Schaefer MD Expected date of discharge: 12/16/16
--- NOTE | 2016-12-16 08:38 | Orthopedic Progress Note ---
Assessment and Plan (1) Bimalleolar fracture of left ankle Status: Acute Current Visit: Yes Orthopedics - Subjective Interval history: Tolerating p.o. ready for rehab will follow up next week Exam - Constitutional Vitals: Period Temp Pulse Resp BP Sys/Blanc Pulse Ox Last 24 Hr 97.0 F-99.0 F 61-76 16-18 118-141/49-67 95-100 Results - Labs CBC & BMP: 12/16/16 05:44 12/16/16 05:44 Specialty Discharge - Follow Up or Referrals Follow up with: Garth Anglin Jr., MD [Physician] - 12/22/16 9:25 am
[2016-12-16] MEDS: DESITIN 4OZ/NYSTATIN 15 GRAM MIXTURE PASTE TOP SCH (09:06)
[2016-12-16] MEDS: MONTELUKAST 10 MG TABLET PO SCH (09:08)
[2016-12-16] MEDS: CARVEDILOL 6.25 MG TABLET PO SCH (09:08)
[2016-12-16] MEDS: FORMOTEROL FUM INH SCH (09:08)
[2016-12-16] MEDS: GLYCOPYRROLATE INH SCH (09:08)
[2016-12-16] MEDS: ASPIRIN EC 81 MG TABLET PO SCH (09:08)
[2016-12-16] MEDS: PANTOPRAZOLE 40 MG TABLET PO SCH (09:08)
[2016-12-16] MEDS: CLOPIDOGREL 75 MG TABLET PO SCH (09:08)
--- NOTE | 2016-12-16 09:38 | Gastrointestinal Progress Note ---
<Darlene Vila Maldonado - Last Filed: 12/16/16 09:36> Assessment and Plan (1) Diarrhea Status: Chronic Assessment and plan: 12/16-normal bowel movement, passing flatus. Tolerating clear liquids. Advance to soft diet. For discharge to rehab facility later today. Plan an addendum to follow by Dr. Diamond. 12/15-No reports of diarrhea, passing large amount of flatus. NG clamped on yesterday. Plan and addendum to follow by Dr Diamond. 12/14-continued gastric output however decreased at present. Diarrhea stools are improved. Tolerating ice chips. Stool studies noted to be negative. Continue to monitor this time. Plan an addendum to follow Dr. Diamond. 12/11-several week history of episodic diarrhea with abdominal pain and cramping. Multiple antibiotic use in September during hospitalization and postdischarge. Reported recent hospital stay in November with negative Clostridium difficile. 20 pound weight loss over the last 3-4 weeks. No prior endoscopy history. Check stool studies. Plan an addendum to follow by Dr. Diamond. (2) Nausea & vomiting Status: Acute Assessment and plan: 12/16-symptoms resolved and tolerating diet. 12/15-No further nausea or vomiting. NG clamped yesterday and has tolerated clear liquids x 2 meals. Will dc NG today and continue to monitor at this time. Plan and addendum to follow by Dr Diamond. 12/11-several year history of cyclic episodes of nausea and vomiting, with exacerbation this morning with intractable vomiting. Postop ankle fracture repair yesterday. KUB is pending at present time. Plan an addendum to follow by Dr. Diamond. Gastroenterology - PN: Subj Interval history: CC: Diarrhea, nausea vomiting Patient is seen awake and alert with family at bedside. States she had an uneventful night. She is continuing to have small bowel movement and passing flatus. She is tolerating her clear liquids at this time and is requesting to advance her diet. Denies any abdominal pain, nausea or vomiting. She is noted to be discharged today to [facility] rehab once a bed becomes available. Abdomen is soft, nontender. ROS: Denies shortness of breath or chest pain Exam (Progress Note) - Constitutional Vitals: Period Temp Pulse Resp BP Sys/Blanc Pulse Ox Last 24 Hr 97.0 F-99.0 F 61-76 12-18 118-141/49-67 95-100 General appearance: normal weight, no acute distress - Head Head exam: Present: normal inspection, normocephalic - Eye Eye exam: Present: other (Lids and conjunctive are unremarkable). Absent: scleral icterus - ENT ENT exam: Present: normal exam, normal oropharynx - Neck Neck exam: Present: normal inspection - Respiratory Respiratory exam: Present: clear to auscultation bilaterally. Absent: rales, rhonchi, wheezes - Cardiovascular Cardiovascular exam: Present: regular rate and rhythm. Absent: diastolic murmur , JVD, systolic murmur - GI/Abdominal GI/Abdominal exam: Present: normal bowel sounds, soft. Absent: ascites, distended, mass, organomegaly, tenderness - Extremities Exam Extremities exam: Present: normal inspection, full ROM - Back Exam Back exam: Present: normal inspection - Neurological Exam Neurological exam: Present: alert, oriented X3 - Psychiatric Psychiatric exam: Present: normal affect, normal mood - Skin Skin exam: Present: normal color, warm, dry Results - Labs CBC & BMP: 12/16/16 05:44 12/16/16 05:44 Lab Results: I have reviewed the past 24 hour labs Specialty Discharge - Follow Up or Referrals Follow up with: Garth Anglin Jr., MD [Physician] - 12/22/16 9:25 am <Monroe Diamond - Last Filed: 12/16/16 18:41> Exam (Progress Note) - Constitutional Vitals: Period Temp Pulse Resp BP Sys/Blanc Pulse Ox Last 24 Hr 97.0 F-98.7 F 62-72 -18 122-143/49-57 97-100 Results - Labs CBC & BMP: 12/16/16 05:44 12/16/16 05:44
[2016-12-16 11:53] VITALS: BP 143/57
[2016-12-16] MEDS: POTASSIUM CHLORIDE INJ 40 MEQ in DEXTROSE 5% NACL 0.22% 1,000 ML IV SCH (12:38)
== END 2016-12-16 13:34 | disposition swing bed (61) | DRG 493 ==
LOC: EDUNIT# → EDBD → N.EDINP 08:15 → N.ED 08:15 → N.EDINP 09:31 → N.3E 12:12 → SUATTDRO 12-11 11:30
PROVIDERS: ADMIT Orthopaedic Surgery; ATTEND Internal Medicine Cardiovascular Disease

== ENCOUNTER 2017-11-22 17:12 | Inpatient (IN) ==
[2017-11-22] MEDS ORDERED: SODIUM CHLORIDE 0.9% 1,000 ML IV STA (18:22)
[2017-11-22] MEDS ORDERED: ONDANSETRON 4 MG/2 ML VIAL IV STA (18:22)
[2017-11-22 18:59] LABS: Basophils # 0.1 10*3/uL (0.0-0.2); Basophils % 0.5 % (0.0-0.8); Eosinophils # 0.1 10*3/uL (0.0-0.87); Eosinophils % 0.4 % (0.00-10.9); Hematocrit 39.1 VOL% (35.7-47.0); Hemoglobin 12.5 GM/DL (12.0-16.0); Immature Granulocytes % 0.4 %; Immature Granulocytes Absolute 0.06 #; Lymphocytes # 3.5 10*3/uL (1.4-4.0); Mean Corpuscular Hemoglobin 29 PG (27-34); Mean Corpuscular Volume 89.5 FL (87-102); Monocytes # 1.1 10*3/uL (0.11-0.8); Monocytes % 7.5 % (1.7-12.7); Neutrophils # 10.3 10*3/uL (1.4-7.4); Neutrophils % 68.2 % (38.7-73.9); Platelet Count 267 T/CUMM (130-400); Red Blood Count 4.37 MC/CUMM (3.8-5.5); Red Cell Distribution Width 15.3 % (9.3-17.3); White Blood Count 15.1 T/CUMM (4-12)
[2017-11-22 19:09] LABS: Apearance,Urine CLEAR (Clear); Bilirubin,Urine Negative (Negative); Blood, Urine Negative (Negative); Glucose,Urine (UA) Negative (Negative); Hyaline Casts,Urine 3 /LPF (0-3); Ketones,Urine Negative (Negative); Nitrite,Urine Negative (Negative); Protein,Urine Negative; Urine Color Yellow (Yellow); Urine Urobilinogen < 2.0 EU/DL (0.2-1.0); WBC,Urine <1 /HPF (0-6)
[2017-11-22 19:30] LABS: Alanine Aminotransferase 16 U/L (13-56); Albumin 3.2 G/DL (3.4-5.0); Alkaline Phosphatase 135 U/L (45-117); Aspartate Amino Transferase 13 U/L (0-37); Blood Urea Nitrogen 57 MG/DL (7-18); Calcium 8.3 MG/DL (8.5-10.1); Glucose 102 MG/DL (74-106); Osmolality,Calculated 296.3 MOS/KG (273-304); Potassium 4.2 MMOL/L (3.5-5.1); Sodium 141 MMOL/L (136-145); Total Protein 7.2 G/DL (6.4-8.3); Troponin I Only < 0.015 NG/ML (0.00-0.045)
[2017-11-22] MEDS ORDERED: PROMETHAZINE 25 MG/1 ML VIAL IM PRN (20:58)
[2017-11-22] MEDS ORDERED: ALBUTEROL 2.5 MG/3 ML NEB RESP TX PRN (21:06)
[2017-11-22] MEDS ORDERED: hydrALAZINE 20 MG/1 ML VIAL IV PRN (21:36)
[2017-11-22] MEDS ORDERED: GLUCAGON 1 MG VIAL IM PRN (21:38)
[2017-11-22] MEDS ORDERED: DEXTROSE 50% 25 GM/50 ML VIAL IV PRN (21:38)
[2017-11-22] MEDS ORDERED: ENOXAPARIN 30 MG/0.3 ML SYRINGE SUBCUT SCH (22:30)
[2017-11-22] MEDS: SODIUM CHLORIDE 0.9% 1,000 ML IV SCH (22:52)
[2017-11-22] MEDS: ONDANSETRON 4 MG/2 ML VIAL IV PRN (23:51)
[2017-11-23 07:26] LABS: Basophils # 0.1 10*3/uL (0.0-0.2); Basophils % 0.5 % (0.0-0.8); Eosinophils # 0.1 10*3/uL (0.0-0.87); Eosinophils % 1.1 % (0.00-10.9); Hematocrit 35.4 VOL% (35.7-47.0); Hemoglobin 11.9 GM/DL (12.0-16.0); Immature Granulocytes % 0.5 %; Immature Granulocytes Absolute 0.06 #; Lymphocytes # 3.3 10*3/uL (1.4-4.0); Lymphocytes % 29.2 % (21.3-54.2); Mean Corpuscular HGB Conc 33.6 GM/DL (32-36); Mean Corpuscular Hemoglobin 29 PG (27-34); Mean Corpuscular Volume 87.4 FL (87-102); Mean Platelet Volume 13.2 FL (9.6-12.0); Monocytes % 8.7 % (1.7-12.7); Neutrophils # 6.7 10*3/uL (1.4-7.4); Platelet Count 221 T/CUMM (130-400); Red Blood Count 4.05 MC/CUMM (3.8-5.5); Red Cell Distribution Width 15.7 % (9.3-17.3); White Blood Count 11.2 T/CUMM (4-12)
[2017-11-23 07:56] LABS: Calcium 8.2 MG/DL (8.5-10.1); Osmolality,Calculated 300.6 MOS/KG (273-304); Potassium 4.3 MMOL/L (3.5-5.1)
[2017-11-23] MEDS: PANTOPRAZOLE 40 MG VIAL IV SCH (08:37)
[2017-11-23] MEDS: INSULIN LISPRO 100 UNIT/ML SUBCUT SCH ×4 (08:38→21:01)
[2017-11-23] MEDS: INSULIN GLARGINE 100 UNIT/ML SUBCUT SCH (08:39)
[2017-11-23] MEDS: MONTELUKAST 10 MG TABLET PO SCH (08:39)
[2017-11-23] MEDS: ASPIRIN EC 81 MG TABLET PO SCH (08:39)
[2017-11-23] MEDS: SERTRALINE 50 MG TABLET PO SCH (08:39)
[2017-11-23] MEDS ORDERED: Glycopyrrolate/Formoterol Fum [Bevespi Aerosphere Inhaler] INH SCH (09:00)
[2017-11-23] MEDS: ONDANSETRON 4 MG/2 ML VIAL IV PRN (12:42)
[2017-11-23] MEDS: SODIUM CHLORIDE 0.9% 1,000 ML IV SCH (12:42)
[2017-11-24] MEDS: SODIUM CHLORIDE 0.9% 1,000 ML IV SCH (03:32)
[2017-11-24 05:49] LABS: Basophils # 0.1 10*3/uL (0.0-0.2); Basophils % 1.1 % (0.0-0.8); Eosinophils # 0.3 10*3/uL (0.0-0.87); Eosinophils % 3.5 % (0.00-10.9); Hemoglobin 11.6 GM/DL (12.0-16.0); Immature Granulocytes % 0.4 %; Immature Granulocytes Absolute 0.04 #; Lymphocytes # 3.4 10*3/uL (1.4-4.0); Lymphocytes % 35.2 % (21.3-54.2); Mean Corpuscular HGB Conc 32.2 GM/DL (32-36); Mean Corpuscular Hemoglobin 29 PG (27-34); Mean Corpuscular Volume 89.1 FL (87-102); Mean Platelet Volume 12.4 FL (9.6-12.0); Monocytes % 9.8 % (1.7-12.7); Neutrophils # 4.8 10*3/uL (1.4-7.4); Platelet Count 259 T/CUMM (130-400); Red Blood Count 4.04 MC/CUMM (3.8-5.5); White Blood Count 9.7 T/CUMM (4-12)
[2017-11-24 06:04] LABS: Calcium 8.1 MG/DL (8.5-10.1); Osmolality,Calculated 298.3 MOS/KG (273-304); Potassium 4.7 MMOL/L (3.5-5.1)
[2017-11-24] MEDS: INSULIN LISPRO 100 UNIT/ML SUBCUT SCH ×4 (07:26→23:19)
[2017-11-24] MEDS: INSULIN GLARGINE 100 UNIT/ML SUBCUT SCH (08:04)
[2017-11-24] MEDS: SERTRALINE 50 MG TABLET PO SCH (08:04)
[2017-11-24] MEDS: ASPIRIN EC 81 MG TABLET PO SCH (08:04)
[2017-11-24] MEDS: MONTELUKAST 10 MG TABLET PO SCH (08:04)
[2017-11-24] MEDS: PANTOPRAZOLE 40 MG VIAL IV SCH (09:27)
[2017-11-24] MEDS ORDERED: BISACODYL 5 MG TABLET PO ONE (12:00)
[2017-11-24] MEDS ORDERED: PROPOFOL 200 MG/20 ML VIAL IV ONE (12:35)
[2017-11-24] MEDS ORDERED: GLYCOPYRROLATE 0.4 MG/2 ML VIAL ONE (12:35)
[2017-11-24] MEDS ORDERED: ETOMIDATE 20 MG/10 ML VIAL IV ONE (12:35)
[2017-11-24] MEDS ORDERED: LIDOCAINE 1% 5 ML VIAL ONE (12:35)
[2017-11-24] MEDS ORDERED: POLYETHYLENE GLYCOL POWDER 255 GM BOTTLE PO ONE (18:00)
[2017-11-25] MEDS: SODIUM CHLORIDE 0.9% 1,000 ML IV SCH (00:30)
[2017-11-25 07:04] LABS: Calcium 8.6 MG/DL (8.5-10.1); Osmolality,Calculated 287.7 MOS/KG (273-304); Potassium 4.2 MMOL/L (3.5-5.1)
[2017-11-25] MEDS: INSULIN LISPRO 100 UNIT/ML SUBCUT SCH ×4 (07:50→20:50)
[2017-11-25] MEDS: PANTOPRAZOLE 40 MG VIAL IV SCH (08:56)
[2017-11-25] MEDS: MONTELUKAST 10 MG TABLET PO SCH (08:58)
[2017-11-25] MEDS: INSULIN GLARGINE 100 UNIT/ML SUBCUT SCH (08:58)
[2017-11-25] MEDS: ASPIRIN EC 81 MG TABLET PO SCH (08:58)
[2017-11-25] MEDS: SERTRALINE 50 MG TABLET PO SCH (08:58)
[2017-11-25] MEDS ORDERED: LIDOCAINE 2% 5 ML VIAL ONE (09:00)
[2017-11-25] MEDS ORDERED: PROPOFOL 200 MG/20 ML VIAL IV ONE (09:00)
[2017-11-25] MEDS ORDERED: MAGNESIUM SULF RIDER 4 GM in PREMIX 1 EACH IV PRN (11:07)
[2017-11-25] MEDS ORDERED: MAGNESIUM SULF RIDER 2 GM in PREMIX 1 EACH IV PRN (11:07)
[2017-11-26] MEDS: SODIUM CHLORIDE 0.9% 1,000 ML IV SCH (00:30)
[2017-11-26 06:19] LABS: Basophils # 0.1 10*3/uL (0.0-0.2); Basophils % 0.7 % (0.0-0.8); Eosinophils # 0.3 10*3/uL (0.0-0.87); Eosinophils % 2.5 % (0.00-10.9); Hematocrit 34.8 VOL% (35.7-47.0); Hemoglobin 11.4 GM/DL (12.0-16.0); Immature Granulocytes % 0.3 %; Immature Granulocytes Absolute 0.03 #; Lymphocytes # 3.4 10*3/uL (1.4-4.0); Lymphocytes % 32.8 % (21.3-54.2); Mean Corpuscular HGB Conc 32.8 GM/DL (32-36); Mean Corpuscular Hemoglobin 29 PG (27-34); Mean Platelet Volume 12.4 FL (9.6-12.0); Monocytes % 9.5 % (1.7-12.7); Neutrophils # 5.6 10*3/uL (1.4-7.4); Neutrophils % 54.2 % (38.7-73.9); Platelet Count 225 T/CUMM (130-400); Red Blood Count 3.91 MC/CUMM (3.8-5.5); Red Cell Distribution Width 15.9 % (9.3-17.3); White Blood Count 10.3 T/CUMM (4-12)
[2017-11-26 06:51] LABS: Calcium 8.1 MG/DL (8.5-10.1); Osmolality,Calculated 293.1 MOS/KG (273-304); Potassium 4.1 MMOL/L (3.5-5.1)
[2017-11-26] MEDS: ASPIRIN EC 81 MG TABLET PO SCH (09:16)
[2017-11-26] MEDS: PANTOPRAZOLE 40 MG VIAL IV SCH (09:16)
[2017-11-26] MEDS: INSULIN GLARGINE 100 UNIT/ML SUBCUT SCH (09:16)
[2017-11-26] MEDS: MONTELUKAST 10 MG TABLET PO SCH (09:17)
[2017-11-26] MEDS: SERTRALINE 50 MG TABLET PO SCH (09:17)
[2017-11-26] MEDS: INSULIN LISPRO 100 UNIT/ML SUBCUT SCH ×4 (09:44→21:50)
[2017-11-27 04:38] LABS: Calcium 8.2 MG/DL (8.5-10.1); Osmolality,Calculated 292.3 MOS/KG (273-304); Potassium 3.5 MMOL/L (3.5-5.1)
[2017-11-27] MEDS: ASPIRIN EC 81 MG TABLET PO SCH (09:04)
[2017-11-27] MEDS: MONTELUKAST 10 MG TABLET PO SCH (09:04)
[2017-11-27] MEDS: PANTOPRAZOLE 40 MG VIAL IV SCH (09:04)
[2017-11-27] MEDS: SERTRALINE 50 MG TABLET PO SCH (09:04)
[2017-11-27] MEDS: INSULIN GLARGINE 100 UNIT/ML SUBCUT SCH (09:06)
[2017-11-27] MEDS: INSULIN LISPRO 100 UNIT/ML SUBCUT SCH ×2 (09:23→12:07)
[2017-11-27 12:34] VITALS: BP 162/56
== END 2017-11-27 15:30 | disposition home or self-care (01) | DRG 391 ==
LOC: EDUNIT# → EDBD → N.ED 17:12 → SUATTDRO 20:55 → N.EDINP 20:55 → N.2E 22:07
PROVIDERS: ADMIT Internal Medicine Nephrology; ATTEND Internal Medicine
PROC: COLONBX (2017-11-25 09:05)

== ENCOUNTER 2018-07-17 20:09 | Inpatient (IN) ==
[2018-07-17 20:29] LABS: Basophils # 0.1 10*3/uL (0.0-0.2); Basophils % 0.5 % (0.0-0.8); Eosinophils # 0.1 10*3/uL (0.0-0.87); Eosinophils % 0.4 % (0.00-10.9); Hematocrit 41.2 VOL% (35.7-47.0); Hemoglobin 13.1 GM/DL (12.0-16.0); Immature Granulocytes % 0.5 %; Lymphocytes # 2.4 10*3/uL (1.4-4.0); Lymphocytes % 11.8 % (21.3-54.2); Mean Corpuscular HGB Conc 31.8 GM/DL (32-36); Mean Corpuscular Hemoglobin 29 PG (27-34); Mean Corpuscular Volume 91.6 FL (87-102); Mean Platelet Volume 11.8 FL (9.6-12.0); Monocytes # 1.3 10*3/uL (0.11-0.8); Monocytes % 6.7 % (1.7-12.7); Neutrophils # 15.9 10*3/uL (1.4-7.4); Neutrophils % 80.1 % (38.7-73.9); Platelet Count 260 T/CUMM (130-400); White Blood Count 19.9 T/CUMM (4-12)
[2018-07-17 20:39] LABS: INR 0.9; PT Patient Result 10.1 SECS; Partial Thromboplastin Time 26.6 SECS (0-40)
[2018-07-17 21:00] LABS: Alanine Aminotransferase 37 U/L (13-56); Albumin 3.2 G/DL (3.4-5.0); Alkaline Phosphatase 134 U/L (45-117); Aspartate Amino Transferase 33 U/L (0-37); Bilirubin,Total < 0.39 MG/DL (0.2-1.0); Blood Urea Nitrogen 14 MG/DL (7-18); Calcium 8.9 MG/DL (8.5-10.1); Glucose 141 MG/DL (74-106); Osmolality,Calculated 285.1 MOS/KG (273-304); Potassium 3.8 MMOL/L (3.5-5.1); Sodium 142 MMOL/L (136-145)
[2018-07-17 21:16] LABS: ABG Base Excess -1.2 MMOL/L (-2.5-2.5); ABG HCO3 23.2 MMOL/L (20-26); ABG Oxygen Saturation 90.6 % (95-100); ABG PCO2 31.6 MM HG (35-48); ABG PH 7.448 (7.35-7.45); ABG PO2 56.2 MM HG (80-95); Allen Test Positive
[2018-07-17] MEDS ORDERED: AZITHROMYCIN INJ 500 MG in SODIUM CHLORIDE 0.9% 250 ML IV STA (21:32)
[2018-07-17] MEDS ORDERED: hydrALAZINE 20 MG/1 ML VIAL IV STA (23:30)
[2018-07-18] MEDS ORDERED: ALBUTEROL 2.5 MG/3 ML NEB RESP TX PRN ×2 (02:08)
[2018-07-18] MEDS ORDERED: GLUCAGON 1 MG VIAL IM PRN (02:08)
[2018-07-18] MEDS ORDERED: DEXTROSE 50% 25 GM/50 ML SYRINGE IV PRN (02:08)
[2018-07-18] MEDS ORDERED: ACETAMINOPHEN 325 MG TABLET PO PRN (02:08)
[2018-07-18] MEDS ORDERED: MAGNESIUM SULF RIDER 2 GM in PREMIX 1 EACH IV ONE (02:19)
[2018-07-18] MEDS ORDERED: LABETALOL 20 MG/4 ML SYRINGE IV PRN (02:21)
[2018-07-18] MEDS: methylPREDNISolone SOD SUC 40 MG/1 ML VIAL IV SCH ×3 (02:59→18:18)
[2018-07-18] MEDS ORDERED: LOPERAMIDE 2 MG CAPSULE PO PRN (03:58)
[2018-07-18] MEDS ORDERED: ONDANSETRON ODT 4 MG TABLET PO PRN (03:58)
[2018-07-18 06:57] LABS: Basophils % 0.2 % (0.0-0.8); Hematocrit 41.2 VOL% (35.7-47.0); Hemoglobin 13.5 GM/DL (12.0-16.0); Immature Granulocytes % 0.6 %; Lymphocytes % 5.9 % (21.3-54.2); Mean Corpuscular HGB Conc 32.8 GM/DL (32-36); Mean Corpuscular Hemoglobin 29 PG (27-34); Mean Corpuscular Volume 89.6 FL (87-102); Mean Platelet Volume 11.9 FL (9.6-12.0); Monocytes # 0.5 10*3/uL (0.11-0.8); Neutrophils # 15.7 10*3/uL (1.4-7.4); Neutrophils % 90.3 % (38.7-73.9); Platelet Count 268 T/CUMM (130-400); Red Cell Distribution Width 14.2 % (9.3-17.3); White Blood Count 17.4 T/CUMM (4-12)
[2018-07-18 07:20] LABS: Bilirubin,Total 0.5 MG/DL (0.2-1.0); Calcium 8.6 MG/DL (8.5-10.1); Osmolality,Calculated 283.5 MOS/KG (273-304); Potassium 3.7 MMOL/L (3.5-5.1); Total Protein 7.2 G/DL (6.4-8.3)
[2018-07-18] MEDS: ALBUTEROL/IPRATROPIUM 3 ML NEB RESP TX SCH ×3 (07:25→20:25)
[2018-07-18] MEDS: INSULIN REGULAR 100 UNIT/ML SUBCUT SCH ×4 (08:41→21:07)
[2018-07-18] MEDS: SERTRALINE 50 MG TABLET PO SCH (08:42)
[2018-07-18] MEDS: amLODIPine 5 MG TABLET PO SCH (08:42)
[2018-07-18] MEDS: ASPIRIN EC 81 MG TABLET PO SCH (08:42)
[2018-07-18] MEDS: PANTOPRAZOLE 40 MG TABLET PO SCH (08:42)
[2018-07-18] MEDS: MONTELUKAST 10 MG TABLET PO SCH (08:42)
[2018-07-18] MEDS: DILTIAZEM CD 180 MG CAPSULE PO SCH (08:42)
[2018-07-18] MEDS: POTASSIUM CHLORIDE 8 MEQ CAPSULE PO SCH ×2 (08:47→20:57)
[2018-07-18] MEDS: ENOXAPARIN 40 MG/0.4 ML SYRINGE SUBCUT SCH (08:47)
[2018-07-18] MEDS ORDERED: NON-FORMULARY MEDICATION (Omeprazole [Prilosec] 20 MG) PO SCH (09:00)
[2018-07-18] MEDS: BUDESONIDE/FORMOTEROL 160-4.5 INHALER 6 GM INH SCH ×2 (09:30→20:57)
[2018-07-18] MEDS: [UNRECOGNIZED DRUG - OTHER] INH SCH (10:05)
[2018-07-18] MEDS: FORMOTEROL FUM INH SCH (10:05)
[2018-07-18] MEDS: GLYCOPYRROLATE INH SCH (10:05)
[2018-07-18] MEDS: MEROPENEM 1,000 MG in SODIUM CHLORIDE 0.9% 100 ML IV SCH ×2 (11:00→18:18)
[2018-07-18] MEDS ORDERED: hydrALAZINE 20 MG/1 ML VIAL IV PRN (20:48)
[2018-07-18] MEDS ORDERED: AZITHROMYCIN INJ 500 MG in SODIUM CHLORIDE 0.9% 250 ML IV SCH (21:30)
[2018-07-19] MEDS: ALBUTEROL/IPRATROPIUM 3 ML NEB RESP TX SCH ×4 (01:00→19:38)
[2018-07-19] MEDS: MEROPENEM 1,000 MG in SODIUM CHLORIDE 0.9% 100 ML IV SCH ×3 (02:54→18:32)
[2018-07-19] MEDS: methylPREDNISolone SOD SUC 40 MG/1 ML VIAL IV SCH (02:54)
[2018-07-19] MEDS: DILTIAZEM CD 180 MG CAPSULE PO SCH (08:44)
[2018-07-19] MEDS: MONTELUKAST 10 MG TABLET PO SCH (08:44)
[2018-07-19] MEDS: ASPIRIN EC 81 MG TABLET PO SCH (08:44)
[2018-07-19] MEDS: amLODIPine 5 MG TABLET PO SCH (08:44)
[2018-07-19] MEDS: ENOXAPARIN 40 MG/0.4 ML SYRINGE SUBCUT SCH (08:45)
[2018-07-19] MEDS: POTASSIUM CHLORIDE 8 MEQ CAPSULE PO SCH ×2 (08:45→22:10)
[2018-07-19] MEDS: SERTRALINE 50 MG TABLET PO SCH (08:45)
[2018-07-19] MEDS: PANTOPRAZOLE 40 MG TABLET PO SCH (08:45)
[2018-07-19] MEDS: FORMOTEROL FUM INH SCH (08:46)
[2018-07-19] MEDS: BUDESONIDE/FORMOTEROL 160-4.5 INHALER 6 GM INH SCH ×2 (08:46→22:11)
[2018-07-19] MEDS: INSULIN REGULAR 100 UNIT/ML SUBCUT SCH ×4 (08:46→22:10)
[2018-07-19] MEDS: GLYCOPYRROLATE INH SCH (08:46)
[2018-07-19] MEDS: [UNRECOGNIZED DRUG - OTHER] INH SCH (08:46)
[2018-07-19] MEDS: AZITHROMYCIN 250 MG TABLET PO SCH (10:58)
[2018-07-19] MEDS: predniSONE 20 MG TABLET PO SCH (10:58)
[2018-07-20] MEDS: ALBUTEROL/IPRATROPIUM 3 ML NEB RESP TX SCH ×4 (00:17→20:40)
[2018-07-20] MEDS: MEROPENEM 1,000 MG in SODIUM CHLORIDE 0.9% 100 ML IV SCH ×3 (04:17→17:53)
[2018-07-20 06:46] LABS: Osmolality,Calculated 298.8 MOS/KG (273-304); Potassium 4.2 MMOL/L (3.5-5.1)
[2018-07-20] MEDS: INSULIN REGULAR 100 UNIT/ML SUBCUT SCH ×5 (08:00→22:31)
[2018-07-20] MEDS: MONTELUKAST 10 MG TABLET PO SCH (09:44)
[2018-07-20] MEDS: POTASSIUM CHLORIDE 8 MEQ CAPSULE PO SCH ×2 (09:44→22:30)
[2018-07-20] MEDS: DILTIAZEM CD 180 MG CAPSULE PO SCH (09:44)
[2018-07-20] MEDS: predniSONE 20 MG TABLET PO SCH (09:44)
[2018-07-20] MEDS: ASPIRIN EC 81 MG TABLET PO SCH (09:44)
[2018-07-20] MEDS: PANTOPRAZOLE 40 MG TABLET PO SCH (09:44)
[2018-07-20] MEDS: amLODIPine 5 MG TABLET PO SCH (09:45)
[2018-07-20] MEDS: SERTRALINE 50 MG TABLET PO SCH (09:45)
[2018-07-20] MEDS: ENOXAPARIN 40 MG/0.4 ML SYRINGE SUBCUT SCH (09:45)
[2018-07-20] MEDS: BUDESONIDE/FORMOTEROL 160-4.5 INHALER 6 GM INH SCH ×2 (09:46→22:32)
[2018-07-20] MEDS: FORMOTEROL FUM INH SCH (09:47)
[2018-07-20] MEDS: GLYCOPYRROLATE INH SCH (09:47)
[2018-07-20] MEDS: AZITHROMYCIN 250 MG TABLET PO SCH (09:47)
[2018-07-20] MEDS: [UNRECOGNIZED DRUG - OTHER] INH SCH (09:47)
[2018-07-21] MEDS: ALBUTEROL/IPRATROPIUM 3 ML NEB RESP TX SCH ×4 (02:15→19:36)
[2018-07-21] MEDS: MEROPENEM 1,000 MG in SODIUM CHLORIDE 0.9% 100 ML IV SCH ×3 (05:07→18:39)
[2018-07-21 05:36] LABS: Basophils % 0.1 % (0.0-0.8); Hematocrit 38.2 VOL% (35.7-47.0); Immature Granulocytes % 0.9 %; Immature Granulocytes Absolute 0.17 #; Lymphocytes # 2.1 10*3/uL (1.4-4.0); Lymphocytes % 11.4 % (21.3-54.2); Mean Corpuscular HGB Conc 31.4 GM/DL (32-36); Mean Corpuscular Hemoglobin 29 PG (27-34); Mean Corpuscular Volume 91.2 FL (87-102); Mean Platelet Volume 12.5 FL (9.6-12.0); Monocytes # 1.5 10*3/uL (0.11-0.8); Monocytes % 8.4 % (1.7-12.7); Neutrophils # 14.4 10*3/uL (1.4-7.4); Neutrophils % 79.2 % (38.7-73.9); Platelet Count 260 T/CUMM (130-400); Red Blood Count 4.19 MC/CUMM (3.8-5.5); Red Cell Distribution Width 14.7 % (9.3-17.3); White Blood Count 18.2 T/CUMM (4-12)
[2018-07-21 06:02] LABS: Calcium 8.8 MG/DL (8.5-10.1); Osmolality,Calculated 297.7 MOS/KG (273-304); Potassium 3.8 MMOL/L (3.5-5.1)
[2018-07-21] MEDS: INSULIN REGULAR 100 UNIT/ML SUBCUT SCH ×4 (08:00→22:03)
[2018-07-21] MEDS: amLODIPine 5 MG TABLET PO SCH (09:41)
[2018-07-21] MEDS: POTASSIUM CHLORIDE 8 MEQ CAPSULE PO SCH ×2 (09:41→22:03)
[2018-07-21] MEDS: SERTRALINE 50 MG TABLET PO SCH (09:42)
[2018-07-21] MEDS: FORMOTEROL FUM INH SCH (09:42)
[2018-07-21] MEDS: [UNRECOGNIZED DRUG - OTHER] INH SCH (09:42)
[2018-07-21] MEDS: MONTELUKAST 10 MG TABLET PO SCH (09:42)
[2018-07-21] MEDS: AZITHROMYCIN 250 MG TABLET PO SCH (09:42)
[2018-07-21] MEDS: PANTOPRAZOLE 40 MG TABLET PO SCH (09:42)
[2018-07-21] MEDS: predniSONE 20 MG TABLET PO SCH (09:42)
[2018-07-21] MEDS: ASPIRIN EC 81 MG TABLET PO SCH (09:42)
[2018-07-21] MEDS: GLYCOPYRROLATE INH SCH (09:42)
[2018-07-21] MEDS: DILTIAZEM CD 180 MG CAPSULE PO SCH (09:42)
[2018-07-21] MEDS: BUDESONIDE/FORMOTEROL 160-4.5 INHALER 6 GM INH SCH ×2 (09:43→22:05)
[2018-07-21] MEDS: ENOXAPARIN 40 MG/0.4 ML SYRINGE SUBCUT SCH (12:06)
[2018-07-22] MEDS: ALBUTEROL/IPRATROPIUM 3 ML NEB RESP TX SCH ×2 (01:14→07:41)
[2018-07-22 04:41] LABS: Basophils % 0.3 % (0.0-0.8); Eosinophils % 0.1 % (0.00-10.9); Hematocrit 36.7 VOL% (35.7-47.0); Hemoglobin 11.6 GM/DL (12.0-16.0); Immature Granulocytes % 1.7 %; Immature Granulocytes Absolute 0.23 #; Lymphocytes # 2.1 10*3/uL (1.4-4.0); Mean Corpuscular HGB Conc 31.6 GM/DL (32-36); Mean Corpuscular Hemoglobin 29 PG (27-34); Mean Corpuscular Volume 90.6 FL (87-102); Mean Platelet Volume 12.4 FL (9.6-12.0); Monocytes # 1.3 10*3/uL (0.11-0.8); Monocytes % 9.7 % (1.7-12.7); NRBC # 0.02 10*3/uL; Neutrophils # 10.1 10*3/uL (1.4-7.4); Neutrophils % 73.2 % (38.7-73.9); Platelet Count 249 T/CUMM (130-400); Red Blood Count 4.05 MC/CUMM (3.8-5.5); Red Cell Distribution Width 14.6 % (9.3-17.3); White Blood Count 13.8 T/CUMM (4-12)
[2018-07-22] MEDS: MEROPENEM 1,000 MG in SODIUM CHLORIDE 0.9% 100 ML IV SCH ×2 (04:57→08:40)
[2018-07-22 05:14] LABS: Calcium 8.6 MG/DL (8.5-10.1); Osmolality,Calculated 295.7 MOS/KG (273-304); Potassium 4.3 MMOL/L (3.5-5.1)
[2018-07-22] MEDS: ASPIRIN EC 81 MG TABLET PO SCH (08:39)
[2018-07-22] MEDS: SERTRALINE 50 MG TABLET PO SCH (08:39)
[2018-07-22] MEDS: MONTELUKAST 10 MG TABLET PO SCH (08:39)
[2018-07-22] MEDS: POTASSIUM CHLORIDE 8 MEQ CAPSULE PO SCH (08:39)
[2018-07-22] MEDS: PANTOPRAZOLE 40 MG TABLET PO SCH (08:39)
[2018-07-22] MEDS: AZITHROMYCIN 250 MG TABLET PO SCH (08:39)
[2018-07-22] MEDS: DILTIAZEM CD 180 MG CAPSULE PO SCH (08:39)
[2018-07-22] MEDS: predniSONE 20 MG TABLET PO SCH (08:39)
[2018-07-22] MEDS: ENOXAPARIN 40 MG/0.4 ML SYRINGE SUBCUT SCH (08:39)
[2018-07-22] MEDS: amLODIPine 5 MG TABLET PO SCH (08:39)
[2018-07-22] MEDS: BUDESONIDE/FORMOTEROL 160-4.5 INHALER 6 GM INH SCH ×2 (08:40→09:02)
[2018-07-22] MEDS: INSULIN REGULAR 100 UNIT/ML SUBCUT SCH (08:40)
[2018-07-22] MEDS: GLYCOPYRROLATE INH SCH (09:31)
[2018-07-22] MEDS: [UNRECOGNIZED DRUG - OTHER] INH SCH (09:31)
[2018-07-22] MEDS: FORMOTEROL FUM INH SCH (09:31)
[2018-07-22 11:16] VITALS: BP 186/68
== END 2018-07-22 12:00 | disposition home or self-care (01) | DRG 190 ==
LOC: EDUNIT# → EDBD → N.ED 20:09 → N.EDINP 07-18 01:48 → SUATTDRO 07-18 01:48 → N.CC 07-18 02:05 → N.5E 07-19 16:27
PROVIDERS: ADMIT Internal Medicine; ATTEND Internal Medicine

== ENCOUNTER 2019-01-30 00:47 | Inpatient (IN) ==
[2019-01-30] MEDS ORDERED: ONDANSETRON 4 MG/2 ML VIAL IV STA (00:56)
[2019-01-30] MEDS ORDERED: MORPHINE 4 MG/1 ML VIAL IV STA (00:56)
[2019-01-30 01:11] LABS: Basophils # 0.1 10*3/uL (0.0-0.2); Basophils % 0.5 % (0.0-0.8); Eosinophils # 0.1 10*3/uL (0.0-0.87); Eosinophils % 0.8 % (0.00-10.9); Hematocrit 42.6 VOL% (35.7-47.0); Hemoglobin 13.3 GM/DL (12.0-16.0); Immature Granulocytes % 0.5 %; Immature Granulocytes Absolute 0.08 #; Lymphocytes # 3.4 10*3/uL (1.4-4.0); Lymphocytes % 19.6 % (21.3-54.2); Mean Corpuscular HGB Conc 31.2 GM/DL (32-36); Mean Platelet Volume 11.5 FL (9.6-12.0); Monocytes % 4.8 % (1.7-12.7); Neutrophils % 73.8 % (38.7-73.9); Platelet Count 268 T/CUMM (130-400); Red Blood Count 4.63 MC/CUMM (3.8-5.5); Red Cell Distribution Width 14.1 % (9.3-17.3); White Blood Count 17.2 T/CUMM (4-12)
[2019-01-30 01:29] LABS: Alanine Aminotransferase 11 U/L (13-56); Albumin 3.4 G/DL (3.4-5.0); Alkaline Phosphatase 122 U/L (45-117); Aspartate Amino Transferase 11 U/L (0-37); Bilirubin,Total < 0.39 MG/DL (0.2-1.0); Blood Urea Nitrogen 24 MG/DL (7-18); Calcium 9.5 MG/DL (8.5-10.1); Glucose 177 MG/DL (74-106); Total Protein 7.6 G/DL (6.4-8.3)
[2019-01-30 02:47] LABS: Apearance,Urine CLEAR (Clear); Bilirubin,Urine Negative (Negative); Blood, Urine Small mg/dL (Negative); Glucose,Urine (UA) Negative (Negative); Hyaline Casts,Urine 1 /LPF (0-3); Ketones,Urine Negative (Negative); Mucus,Urine Occasional /LPF (Occasional); Nitrite,Urine Negative (Negative); Protein,Urine 100 MG/DL; RBC,Urine 1 /HPF (0-4); Urine Color Straw (Yellow); Urine Specific Gravity 1.035 (1.001-1.035); Urine Urobilinogen < 2.0 EU/DL (0.2-1.0); WBC,Urine <1 /HPF (0-6)
[2019-01-30] MEDS ORDERED: MEROPENEM 1,000 MG in SODIUM CHLORIDE 0.9% 100 ML IV STA (02:57)
[2019-01-30] MEDS ORDERED: metroNIDAZOLE INJ 500 MG in PREMIX 1 EACH IV STA (02:57)
[2019-01-30] MEDS ORDERED: HYDROmorphone 2 MG/1 ML VIAL IV STA (03:01)
[2019-01-30] MEDS ORDERED: ONDANSETRON 4 MG/2 ML VIAL IV ONE (03:01)
[2019-01-30] MEDS: DEXTROSE 5% NACL 0.45% 1,000 ML IV SCH ×2 (04:30→12:19)
[2019-01-30 05:01] LABS: Apearance,Urine CLEAR (Clear); Bilirubin,Urine Negative (Negative); Blood, Urine Small mg/dL (Negative); Glucose,Urine (UA) Negative (Negative); Hyaline Casts,Urine 1 /LPF (0-3); Ketones,Urine Negative (Negative); Nitrite,Urine Negative (Negative); Protein,Urine >=500 MG/DL; RBC,Urine 4 /HPF (0-4); Squamous Epithelial Cell,Urine Occasional /HPF (0-10); Urine Color Yellow (Yellow); Urine Specific Gravity 1.039 (1.001-1.035); Urine Urobilinogen < 2.0 EU/DL (0.2-1.0)
[2019-01-30 05:08] LABS: Albumin 3.3 G/DL (3.4-5.0); Bilirubin,Total 0.4 MG/DL (0.2-1.0); Osmolality,Calculated 291.1 MOS/KG (273-304); Total Protein 7.2 G/DL (6.4-8.3)
[2019-01-30] MEDS ORDERED: GLUCAGON 1 MG VIAL IM PRN (06:02)
[2019-01-30] MEDS ORDERED: DEXTROSE 50% 25 GM/50 ML VIAL IV PRN (06:02)
[2019-01-30 06:05] LABS: Basophils # 0.1 10*3/uL (0.0-0.2); Basophils % 0.3 % (0.0-0.8); Hematocrit 40.4 VOL% (35.7-47.0); Hemoglobin 12.9 GM/DL (12.0-16.0); Immature Granulocytes % 0.5 %; Immature Granulocytes Absolute 0.14 #; Lymphocytes # 1.2 10*3/uL (1.4-4.0); Lymphocytes % 4.7 % (21.3-54.2); Mean Corpuscular HGB Conc 31.9 GM/DL (32-36); Mean Corpuscular Volume 91.8 FL (87-102); Mean Platelet Volume 11.7 FL (9.6-12.0); Monocytes % 4.9 % (1.7-12.7); Neutrophils % 89.6 % (38.7-73.9); Platelet Count 256 T/CUMM (130-400); Red Cell Distribution Width 14.1 % (9.3-17.3); White Blood Count 25.8 T/CUMM (4-12)
[2019-01-30] MEDS ORDERED: DEXTROSE 10% 250 ML IV PRN (06:05)
[2019-01-30] MEDS ORDERED: LABETALOL 20 MG/4 ML SYRINGE IV ONE (06:20)
[2019-01-30 06:31] LABS: Band Neutrophils 4 % (0-10); Hypochromasia 1+; Lymphocytes 5 % (20-55); Platelet Estimate Adequate; Segmented Neutrophils 86 % (50-85); Total Cells Counted 100
[2019-01-30] MEDS ORDERED: LABETALOL 100 MG/20 ML VIAL IV ONE (06:45)
[2019-01-30] MEDS ORDERED: ALBUTEROL 2.5 MG/3 ML NEB RESP TX PRN (07:00)
[2019-01-30] MEDS: hydrALAZINE 20 MG/1 ML VIAL IV PRN (08:51)
[2019-01-30] MEDS: PANTOPRAZOLE 40 MG VIAL IV SCH (08:57)
[2019-01-30] MEDS ORDERED: FORMOTEROL INH SCH (09:00)
[2019-01-30] MEDS ORDERED: GLYCOPYRROLATE INH SCH (09:00)
[2019-01-30] MEDS: MEROPENEM 1,000 MG in SODIUM CHLORIDE 0.9% 100 ML IV SCH ×2 (10:31→18:03)
[2019-01-30] MEDS: ONDANSETRON 4 MG/2 ML VIAL IV PRN (10:41)
[2019-01-30] MEDS: metroNIDAZOLE INJ 500 MG in PREMIX 1 EACH IV SCH ×2 (11:19→18:34)
[2019-01-30] MEDS: INSULIN LISPRO 100 UNIT/ML SUBCUT SCH ×2 (12:26→17:08)
[2019-01-30] MEDS: SODIUM CHLORIDE 0.45% 1,000 ML IV SCH ×3 (14:50→22:53)
[2019-01-30] MEDS ORDERED: FUROSEMIDE 40 MG/4 ML VIAL IV ONE (14:51)
[2019-01-30] MEDS ORDERED: LACTATED RINGERS 500 ML IV ONE (15:36)
[2019-01-30] MEDS: HYDROmorphone 2 MG/1 ML VIAL IV PRN (17:13)
[2019-01-31] MEDS: INSULIN LISPRO 100 UNIT/ML SUBCUT SCH ×4 (00:27→18:56)
[2019-01-31] MEDS: HYDROmorphone 2 MG/1 ML VIAL IV PRN ×2 (01:20→04:54)
[2019-01-31 04:02] LABS: Basophils # 0.1 10*3/uL (0.0-0.2); Basophils % 0.3 % (0.0-0.8); Hematocrit 35.6 VOL% (35.7-47.0); Hemoglobin 11.1 GM/DL (12.0-16.0); Immature Granulocytes % 1.4 %; Immature Granulocytes Absolute 0.38 #; Lymphocytes # 2.3 10*3/uL (1.4-4.0); Lymphocytes % 8.7 % (21.3-54.2); Mean Corpuscular HGB Conc 31.2 GM/DL (32-36); Mean Corpuscular Volume 93.4 FL (87-102); Mean Platelet Volume 12.1 FL (9.6-12.0); Monocytes % 7.2 % (1.7-12.7); Neutrophils % 82.4 % (38.7-73.9); Platelet Count 221 T/CUMM (130-400); Red Blood Count 3.81 MC/CUMM (3.8-5.5); Red Cell Distribution Width 14.4 % (9.3-17.3); White Blood Count 26.8 T/CUMM (4-12)
[2019-01-31] MEDS: MEROPENEM 1,000 MG in SODIUM CHLORIDE 0.9% 100 ML IV SCH ×3 (04:35→18:57)
[2019-01-31] MEDS: metroNIDAZOLE INJ 500 MG in PREMIX 1 EACH IV SCH ×3 (04:36→21:16)
[2019-01-31] MEDS: SODIUM CHLORIDE 0.45% 1,000 ML IV SCH ×4 (04:36→18:52)
[2019-01-31 04:38] LABS: Calcium 8.2 MG/DL (8.5-10.1)
[2019-01-31 05:43] LABS: Total Cells Counted 100
[2019-01-31 05:44] LABS: Band Neutrophils 3 % (0-10); Lymphocytes 8 % (20-55); Segmented Neutrophils 83 % (50-85)
[2019-01-31 05:51] LABS: Platelet Estimate Normal
[2019-01-31] MEDS: FUROSEMIDE 40 MG/4 ML VIAL IV SCH (09:06)
[2019-01-31] MEDS: PANTOPRAZOLE 40 MG VIAL IV SCH (09:10)
[2019-01-31] MEDS ORDERED: HYDROmorphone 2 MG/1 ML VIAL IV PRN ×2 (10:06)
[2019-01-31] MEDS ORDERED: MAGNESIUM SULF RIDER 2 GM in PREMIX 1 EACH IV ONE (10:30)
[2019-01-31] MEDS: ONDANSETRON 4 MG/2 ML VIAL IV PRN (17:12)
[2019-02-01] MEDS: INSULIN LISPRO 100 UNIT/ML SUBCUT SCH ×4 (01:24→18:06)
[2019-02-01] MEDS: SODIUM CHLORIDE 0.45% 1,000 ML IV SCH ×3 (03:41→15:37)
[2019-02-01] MEDS: MEROPENEM 1,000 MG in SODIUM CHLORIDE 0.9% 100 ML IV SCH ×3 (03:41→22:11)
[2019-02-01] MEDS: metroNIDAZOLE INJ 500 MG in PREMIX 1 EACH IV SCH ×3 (03:42→23:26)
[2019-02-01 03:57] LABS: Basophils # 0.1 10*3/uL (0.0-0.2); Basophils % 0.4 % (0.0-0.8); Eosinophils # 0.2 10*3/uL (0.0-0.87); Eosinophils % 0.6 % (0.00-10.9); Hematocrit 32.3 VOL% (35.7-47.0); Hemoglobin 10.4 GM/DL (12.0-16.0); Immature Granulocytes % 2.1 %; Immature Granulocytes Absolute 0.56 #; Lymphocytes # 2.1 10*3/uL (1.4-4.0); Lymphocytes % 7.6 % (21.3-54.2); Mean Corpuscular HGB Conc 32.2 GM/DL (32-36); Mean Corpuscular Volume 93.1 FL (87-102); Mean Platelet Volume 11.4 FL (9.6-12.0); Monocytes % 6.6 % (1.7-12.7); Neutrophils % 82.7 % (38.7-73.9); Platelet Count 204 T/CUMM (130-400); Red Blood Count 3.47 MC/CUMM (3.8-5.5); Red Cell Distribution Width 14.3 % (9.3-17.3); White Blood Count 26.9 T/CUMM (4-12)
[2019-02-01 04:18] LABS: Calcium 8.1 MG/DL (8.5-10.1); Osmolality,Calculated 280.5 MOS/KG (273-304)
[2019-02-01 04:20] LABS: Band Neutrophils 2 % (0-10); Eosinophils 1 % (0-10); Hypochromasia 1+; Lymphocytes 6 % (20-55); Platelet Estimate Adequate; Segmented Neutrophils 86 % (50-85); Total Cells Counted 100
[2019-02-01] MEDS: ROSUVASTATIN 20 MG TABLET PO SCH (09:22)
[2019-02-01] MEDS: DILTIAZEM CD 240 MG CAPSULE PO SCH (09:22)
[2019-02-01] MEDS: FUROSEMIDE 40 MG/4 ML VIAL IV SCH (09:26)
[2019-02-01] MEDS: PANTOPRAZOLE 40 MG VIAL IV SCH (09:32)
[2019-02-01] MEDS: POTASSIUM CHLORIDE RIDER 10 MEQ in PREMIX 1 EACH IV SCH ×3 (14:50→19:09)
[2019-02-02] MEDS: INSULIN LISPRO 100 UNIT/ML SUBCUT SCH ×4 (00:45→18:38)
[2019-02-02] MEDS: MEROPENEM 1,000 MG in SODIUM CHLORIDE 0.9% 100 ML IV SCH ×3 (05:07→21:29)
[2019-02-02 06:00] LABS: Basophils # 0.1 10*3/uL (0.0-0.2); Basophils % 0.4 % (0.0-0.8); Eosinophils # 0.5 10*3/uL (0.0-0.87); Eosinophils % 2.5 % (0.00-10.9); Hematocrit 32.5 VOL% (35.7-47.0); Hemoglobin 10.4 GM/DL (12.0-16.0); Immature Granulocytes % 0.5 %; Immature Granulocytes Absolute 0.11 #; Lymphocytes # 1.6 10*3/uL (1.4-4.0); Lymphocytes % 7.7 % (21.3-54.2); Mean Platelet Volume 12.5 FL (9.6-12.0); Monocytes % 6.5 % (1.7-12.7); NRBC # 0.02 10*3/uL; Neutrophils % 82.4 % (38.7-73.9); Platelet Count 223 T/CUMM (130-400); Red Blood Count 3.57 MC/CUMM (3.8-5.5); White Blood Count 20.1 T/CUMM (4-12)
[2019-02-02 06:22] LABS: Band Neutrophils 3 % (0-10); Eosinophils 1 % (0-10); Hypochromasia 1+; Lymphocytes 7 % (20-55); Platelet Estimate Adequate; Segmented Neutrophils 84 % (50-85); Total Cells Counted 100
[2019-02-02] MEDS: metroNIDAZOLE INJ 500 MG in PREMIX 1 EACH IV SCH ×3 (06:32→23:16)
[2019-02-02 06:34] LABS: Calcium 8.4 MG/DL (8.5-10.1); Osmolality,Calculated 284.1 MOS/KG (273-304)
[2019-02-02] MEDS: POTASSIUM CHLORIDE RIDER 10 MEQ in PREMIX 1 EACH IV SCH (09:20)
[2019-02-02] MEDS: DILTIAZEM CD 240 MG CAPSULE PO SCH (09:45)
[2019-02-02] MEDS: FUROSEMIDE 40 MG/4 ML VIAL IV SCH (09:46)
[2019-02-02] MEDS: ROSUVASTATIN 20 MG TABLET PO SCH (09:46)
[2019-02-02] MEDS: PANTOPRAZOLE 40 MG VIAL IV SCH (09:50)
[2019-02-02] MEDS: ONDANSETRON 4 MG/2 ML VIAL IV PRN (09:53)
[2019-02-02] MEDS: SODIUM CHLORIDE 0.45% 1,000 ML IV SCH ×3 (11:52→23:16)
[2019-02-02] MEDS ORDERED: ACETAMINOPHEN 325 MG TABLET PO PRN (18:55)
[2019-02-03] MEDS: INSULIN LISPRO 100 UNIT/ML SUBCUT SCH ×4 (00:43→18:24)
[2019-02-03] MEDS: SODIUM CHLORIDE 0.45% 1,000 ML IV SCH ×2 (01:09→15:54)
[2019-02-03] MEDS: MEROPENEM 1,000 MG in SODIUM CHLORIDE 0.9% 100 ML IV SCH ×3 (06:07→21:29)
[2019-02-03] MEDS: metroNIDAZOLE INJ 500 MG in PREMIX 1 EACH IV SCH ×3 (06:36→22:30)
[2019-02-03] MEDS: ONDANSETRON 4 MG/2 ML VIAL IV PRN (09:13)
[2019-02-03] MEDS: PANTOPRAZOLE 40 MG VIAL IV SCH (09:13)
[2019-02-03] MEDS: hydrALAZINE 20 MG/1 ML VIAL IV PRN (09:13)
[2019-02-03] MEDS: FUROSEMIDE 40 MG/4 ML VIAL IV SCH (09:13)
[2019-02-03] MEDS: ROSUVASTATIN 20 MG TABLET PO SCH (09:14)
[2019-02-03] MEDS: DILTIAZEM CD 240 MG CAPSULE PO SCH (09:14)
[2019-02-03] MEDS: ENOXAPARIN 40 MG/0.4 ML SYRINGE SUBCUT SCH (21:29)
[2019-02-04] MEDS: INSULIN LISPRO 100 UNIT/ML SUBCUT SCH ×4 (02:00→18:12)
[2019-02-04 05:40] LABS: Basophils # 0.1 10*3/uL (0.0-0.2); Basophils % 0.7 % (0.0-0.8); Eosinophils # 0.5 10*3/uL (0.0-0.87); Eosinophils % 3.5 % (0.00-10.9); Hematocrit 33.6 VOL% (35.7-47.0); Hemoglobin 10.8 GM/DL (12.0-16.0); Immature Granulocytes % 2.3 %; Immature Granulocytes Absolute 0.36 #; Lymphocytes # 2.7 10*3/uL (1.4-4.0); Lymphocytes % 17.4 % (21.3-54.2); Mean Corpuscular HGB Conc 32.1 GM/DL (32-36); Mean Corpuscular Volume 89.8 FL (87-102); Mean Platelet Volume 12.4 FL (9.6-12.0); Monocytes % 12.1 % (1.7-12.7); Platelet Count 251 T/CUMM (130-400); Red Blood Count 3.74 MC/CUMM (3.8-5.5); Red Cell Distribution Width 14.2 % (9.3-17.3); White Blood Count 15.3 T/CUMM (4-12)
[2019-02-04 06:08] LABS: Alanine Aminotransferase < 9 U/L (13-56); Albumin 2.1 G/DL (3.4-5.0); Alkaline Phosphatase 78 U/L (45-117); Aspartate Amino Transferase 15 U/L (0-37); Bilirubin,Total < 0.39 MG/DL (0.2-1.0); Blood Urea Nitrogen 12 MG/DL (7-18); Calcium 8.3 MG/DL (8.5-10.1); Glucose 85 MG/DL (74-106); Osmolality,Calculated 284.8 MOS/KG (273-304); Total Protein 5.6 G/DL (6.4-8.3)
[2019-02-04] MEDS: MEROPENEM 1,000 MG in SODIUM CHLORIDE 0.9% 100 ML IV SCH ×3 (06:37→21:00)
[2019-02-04] MEDS: metroNIDAZOLE INJ 500 MG in PREMIX 1 EACH IV SCH ×2 (07:41→16:00)
[2019-02-04] MEDS: FUROSEMIDE 40 MG/4 ML VIAL IV SCH (08:57)
[2019-02-04] MEDS: PANTOPRAZOLE 40 MG VIAL IV SCH (08:58)
[2019-02-04] MEDS: DILTIAZEM CD 240 MG CAPSULE PO SCH (08:58)
[2019-02-04] MEDS: ROSUVASTATIN 20 MG TABLET PO SCH (08:58)
[2019-02-04] MEDS: POTASSIUM CHLORIDE RIDER 10 MEQ in PREMIX 1 EACH IV PRN ×3 (11:33→21:20)
[2019-02-04] MEDS: SODIUM CHLORIDE 0.45% 1,000 ML IV SCH ×2 (11:34→19:56)
[2019-02-04] MEDS ORDERED: POTASSIUM CHLORIDE 20 MEQ TABLET PO ONE (15:32)
[2019-02-04] MEDS: MAGNESIUM CHLORIDE 64 MG TABLET PO SCH (16:05)
[2019-02-04] MEDS ORDERED: AMINO ACIDS/DEXT/LYTES 4.25-5% 2,000 ML IV SCH (17:00)
[2019-02-04] MEDS: ALBUTEROL/IPRATROPIUM 3 ML NEB RESP TX SCH ×2 (20:06→23:49)
[2019-02-04] MEDS: ENOXAPARIN 40 MG/0.4 ML SYRINGE SUBCUT SCH (20:56)
[2019-02-04] MEDS: DOXYCYCLINE HYCLATE 100 MG CAPSULE PO SCH (20:56)
[2019-02-05] MEDS: INSULIN LISPRO 100 UNIT/ML SUBCUT SCH ×4 (03:08→18:38)
[2019-02-05] MEDS: ALBUTEROL/IPRATROPIUM 3 ML NEB RESP TX SCH ×6 (03:10→23:50)
[2019-02-05] MEDS: MEROPENEM 1,000 MG in SODIUM CHLORIDE 0.9% 100 ML IV SCH ×3 (05:55→21:30)
[2019-02-05 06:00] LABS: Basophils # 0.1 10*3/uL (0.0-0.2); Basophils % 0.5 % (0.0-0.8); Eosinophils # 0.7 10*3/uL (0.0-0.87); Eosinophils % 4.5 % (0.00-10.9); Hematocrit 32.9 VOL% (35.7-47.0); Hemoglobin 10.7 GM/DL (12.0-16.0); Immature Granulocytes % 3.9 %; Immature Granulocytes Absolute 0.58 #; Lymphocytes # 3.2 10*3/uL (1.4-4.0); Lymphocytes % 21.6 % (21.3-54.2); Mean Corpuscular HGB Conc 32.5 GM/DL (32-36); Mean Corpuscular Volume 89.4 FL (87-102); Mean Platelet Volume 12.4 FL (9.6-12.0); Monocytes % 12.7 % (1.7-12.7); NRBC # 0.04 10*3/uL; Neutrophils % 56.8 % (38.7-73.9); Platelet Count 284 T/CUMM (130-400); Red Blood Count 3.68 MC/CUMM (3.8-5.5); Red Cell Distribution Width 14.4 % (9.3-17.3); White Blood Count 14.9 T/CUMM (4-12)
[2019-02-05 06:27] LABS: Eosinophils 3 % (0-10); Lymphocytes 25 % (20-55); Platelet Estimate Normal; Segmented Neutrophils 64 % (50-85); Total Cells Counted 100
[2019-02-05 06:28] LABS: Calcium 8.3 MG/DL (8.5-10.1)
[2019-02-05] MEDS: POTASSIUM CHLORIDE 20 MEQ TABLET PO SCH (08:22)
[2019-02-05] MEDS: ROSUVASTATIN 20 MG TABLET PO SCH (08:22)
[2019-02-05] MEDS: DILTIAZEM CD 240 MG CAPSULE PO SCH (08:22)
[2019-02-05] MEDS: CHOLECALCIFEROL 1,000 UNIT TABLET PO SCH (08:22)
[2019-02-05] MEDS: DOXYCYCLINE HYCLATE 100 MG CAPSULE PO SCH ×2 (08:23→20:25)
[2019-02-05] MEDS: MONTELUKAST 10 MG TABLET PO SCH (08:23)
[2019-02-05] MEDS: ASPIRIN EC 81 MG TABLET PO SCH (08:23)
[2019-02-05] MEDS: MAGNESIUM CHLORIDE 64 MG TABLET PO SCH (08:23)
[2019-02-05] MEDS: PANTOPRAZOLE 40 MG VIAL IV SCH (08:24)
[2019-02-05] MEDS: FUROSEMIDE 40 MG/4 ML VIAL IV SCH (08:24)
[2019-02-05] MEDS: POTASSIUM CHLORIDE RIDER 10 MEQ in PREMIX 1 EACH IV PRN ×4 (08:29→17:25)
[2019-02-05] MEDS: SODIUM CHLORIDE 0.45% 1,000 ML IV SCH (08:38)
[2019-02-05] MEDS ORDERED: POTASSIUM CHLORIDE 20 MEQ TABLET PO SCH (09:00)
[2019-02-05] MEDS: hydrALAZINE 20 MG/1 ML VIAL IV PRN (18:39)
[2019-02-05] MEDS: ENOXAPARIN 40 MG/0.4 ML SYRINGE SUBCUT SCH (20:25)
[2019-02-06] MEDS: INSULIN LISPRO 100 UNIT/ML SUBCUT SCH ×3 (01:13→13:53)
[2019-02-06] MEDS: ALBUTEROL/IPRATROPIUM 3 ML NEB RESP TX SCH ×4 (03:01→14:09)
[2019-02-06] MEDS: MEROPENEM 1,000 MG in SODIUM CHLORIDE 0.9% 100 ML IV SCH ×2 (05:45→14:56)
[2019-02-06 05:47] LABS: Basophils # 0.1 10*3/uL (0.0-0.2); Basophils % 0.7 % (0.0-0.8); Eosinophils # 0.7 10*3/uL (0.0-0.87); Eosinophils % 4.3 % (0.00-10.9); Hematocrit 31.7 VOL% (35.7-47.0); Hemoglobin 10.1 GM/DL (12.0-16.0); Immature Granulocytes % 4.6 %; Immature Granulocytes Absolute 0.73 #; Lymphocytes # 3.9 10*3/uL (1.4-4.0); Lymphocytes % 24.7 % (21.3-54.2); Mean Corpuscular HGB Conc 31.9 GM/DL (32-36); Mean Corpuscular Volume 89.8 FL (87-102); Mean Platelet Volume 12.4 FL (9.6-12.0); Monocytes % 11.8 % (1.7-12.7); NRBC # 0.06 10*3/uL; Neutrophils % 53.9 % (38.7-73.9); Platelet Count 311 T/CUMM (130-400); Red Blood Count 3.53 MC/CUMM (3.8-5.5); Red Cell Distribution Width 14.6 % (9.3-17.3); White Blood Count 15.9 T/CUMM (4-12)
[2019-02-06 06:03] LABS: Calcium 8.3 MG/DL (8.5-10.1); Osmolality,Calculated 287.8 MOS/KG (273-304)
[2019-02-06 06:57] LABS: Band Neutrophils 4 % (0-10); Eosinophils 3 % (0-10); Hypochromasia Slight; Lymphocytes 24 % (20-55); Metamyelocytes 1 %; Microcytosis 1+; Segmented Neutrophils 57 % (50-85); Total Cells Counted 100
[2019-02-06 06:58] LABS: Polychromasia Few; Target Cells Slight
[2019-02-06 07:01] LABS: Platelet Estimate Normal
[2019-02-06] MEDS: CHOLECALCIFEROL 1,000 UNIT TABLET PO SCH (10:05)
[2019-02-06] MEDS: MONTELUKAST 10 MG TABLET PO SCH (10:05)
[2019-02-06] MEDS: ASPIRIN EC 81 MG TABLET PO SCH (10:05)
[2019-02-06] MEDS: POTASSIUM CHLORIDE 20 MEQ TABLET PO SCH (10:06)
[2019-02-06] MEDS: MAGNESIUM CHLORIDE 64 MG TABLET PO SCH (10:06)
[2019-02-06] MEDS: PANTOPRAZOLE 40 MG VIAL IV SCH (10:06)
[2019-02-06] MEDS: FUROSEMIDE 40 MG/4 ML VIAL IV SCH (10:06)
[2019-02-06] MEDS: DOXYCYCLINE HYCLATE 100 MG CAPSULE PO SCH (10:06)
[2019-02-06] MEDS: ROSUVASTATIN 20 MG TABLET PO SCH (10:06)
[2019-02-06] MEDS: DILTIAZEM CD 240 MG CAPSULE PO SCH (10:07)
[2019-02-06 15:42] VITALS: BP 149/77
[2019-02-06] MEDS: SODIUM CHLORIDE 0.45% 1,000 ML IV SCH (17:01)
[2019-02-07] MEDS ORDERED: LISINOPRIL 2.5 MG TABLET PO SCH (09:00)
== END 2019-02-06 17:36 | disposition home or self-care (01) | DRG 393 ==
LOC: EDUNIT# → EDBD → N.ED 00:47 → SUATTDRO 03:02 → N.EDINP 03:02 → N.ICU 03:36 → N.3E 02-01 17:28
PROVIDERS: ADMIT Surgery; ATTEND Hospitalist

== ENCOUNTER 2019-05-01 17:08 | Inpatient (IN) ==
[2019-05-01] MEDS ORDERED: methylPREDNISolone SOD SUC 125 MG/2 ML VIAL IV STA (18:33)
[2019-05-01] MEDS ORDERED: ONDANSETRON 4 MG/2 ML VIAL IV STA (18:33)
[2019-05-01] MEDS ORDERED: ALUM/MAG/SIMETH/LIDO VISC 1:1 30 ML BOTTLE PO STA (18:37)
[2019-05-01] MEDS ORDERED: PANTOPRAZOLE 40 MG VIAL IV STA (18:37)
[2019-05-01 18:41] LABS: Basophils # 0.1 10*3/uL (0.0-0.2); Basophils % 0.4 % (0.0-0.8); Hematocrit 38.5 VOL% (35.7-47.0); Hemoglobin 12.4 GM/DL (12.0-16.0); Immature Granulocytes % 0.7 %; Immature Granulocytes Absolute 0.16 #; Lymphocytes # 3.1 10*3/uL (1.4-4.0); Lymphocytes % 14.3 % (21.3-54.2); Mean Corpuscular HGB Conc 32.2 GM/DL (32-36); Mean Corpuscular Volume 89.5 FL (87-102); Mean Platelet Volume 12.9 FL (9.6-12.0); Monocytes % 6.9 % (1.7-12.7); Neutrophils % 77.7 % (38.7-73.9); Platelet Count 207 T/CUMM (130-400); Red Cell Distribution Width 14.8 % (9.3-17.3); White Blood Count 21.7 T/CUMM (4-12)
[2019-05-01 18:47] LABS: INR 0.9; PT Patient Result 10.2 SECS (9.6-12.2)
[2019-05-01] MEDS ORDERED: ALBUTEROL 2.5 MG/3 ML NEB RESP TX SCH (19:00)
[2019-05-01 19:05] LABS: ABG Base Excess -3.7 MMOL/L (-2.5-2.5); ABG HCO3 21.3 MMOL/L (20-26); ABG Oxygen Saturation 95.6 % (95-100); ABG PCO2 31.9 MM HG (35-48); ABG PH 7.407 (7.35-7.45); ABG TCO2 17.8 MMOL/L (23-27); Allen Test Positive
[2019-05-01 19:06] LABS: Albumin 3.1 G/DL (3.4-5.0); Bilirubin,Total 0.5 MG/DL (0.2-1.0); Calcium 9.3 MG/DL (8.5-10.1); Osmolality,Calculated 283.2 MOS/KG (273-304); Total Protein 6.8 G/DL (6.4-8.3)
[2019-05-01 19:09] LABS: Lymphocytes 15 % (20-55); Reactive Lymphocytes Few; Segmented Neutrophils 77 % (50-85); Total Cells Counted 100
[2019-05-01 19:10] LABS: Hypochromasia 1+; Microcytosis Slight; Platelet Estimate Adequate; Polychromasia Few
[2019-05-01 19:11] LABS: Anisocytosis 1+; Poikilocytosis Slight
[2019-05-01 20:32] LABS: Apearance,Urine CLOUDY (Clear); Bacteria,Urine Few /HPF (Few); Bilirubin,Urine Negative (Negative); Blood, Urine Small mg/dL (Negative); Glucose,Urine (UA) Negative (Negative); Hyaline Casts,Urine 3 /LPF (0-3); Ketones,Urine Negative (Negative); Mucus,Urine Occasional /LPF (Occasional); Nitrite,Urine Negative (Negative); Protein,Urine 100 MG/DL; RBC,Urine 8 /HPF (0-4); Squamous Epithelial Cell,Urine Occasional /HPF (0-10); Urine Color Yellow (Yellow); Urine Specific Gravity 1.014 (1.001-1.035); Urine Urobilinogen < 2.0 EU/DL (0.2-1.0); WBC,Urine 91 /HPF (0-6)
[2019-05-01] MEDS ORDERED: GLUCAGON 1 MG VIAL IM PRN (20:58)
[2019-05-01] MEDS ORDERED: DEXTROSE 50% 25 GM/50 ML VIAL IV PRN (20:58)
[2019-05-01] MEDS ORDERED: ACETAMINOPHEN 325 MG TABLET PO PRN (20:58)
[2019-05-01] MEDS ORDERED: ALBUTEROL/IPRATROPIUM 3 ML NEB RESP TX PRN (21:23)
[2019-05-01] MEDS: SODIUM CHLORIDE 0.9% 1,000 ML IV SCH (23:31)
[2019-05-01] MEDS: HEPARIN 5,000 UNIT/1 ML VIAL SUBCUT SCH (23:37)
[2019-05-01] MEDS: INSULIN LISPRO 100 UNIT/ML SUBCUT SCH (23:37)
[2019-05-01] MEDS: AZTREONAM 500 MG in SYRINGE 1 EACH IV SCH (23:39)
[2019-05-02 05:03] LABS: Basophils % 0.2 % (0.0-0.8); Hemoglobin 11.7 GM/DL (12.0-16.0); Immature Granulocytes % 0.6 %; Lymphocytes # 1.7 10*3/uL (1.4-4.0); Lymphocytes % 10.1 % (21.3-54.2); Mean Corpuscular HGB Conc 31.6 GM/DL (32-36); Mean Corpuscular Volume 90.5 FL (87-102); Mean Platelet Volume 12.6 FL (9.6-12.0); Neutrophils % 88.1 % (38.7-73.9); Platelet Count 230 T/CUMM (130-400); Red Blood Count 4.09 MC/CUMM (3.8-5.5); Red Cell Distribution Width 14.8 % (9.3-17.3)
[2019-05-02 05:49] LABS: Albumin 2.7 G/DL (3.4-5.0); Bilirubin,Total 1.2 MG/DL (0.2-1.0); Calcium 9.2 MG/DL (8.5-10.1); Total Protein 7.1 G/DL (6.4-8.3)
[2019-05-02] MEDS: SODIUM CHLORIDE 0.9% 1,000 ML IV SCH (08:06)
[2019-05-02] MEDS: INSULIN LISPRO 100 UNIT/ML SUBCUT SCH ×4 (09:36→21:31)
[2019-05-02] MEDS: HEPARIN 5,000 UNIT/1 ML VIAL SUBCUT SCH ×2 (09:36→21:32)
[2019-05-02] MEDS: ASPIRIN EC 81 MG TABLET PO SCH (09:37)
[2019-05-02] MEDS: DILTIAZEM CD 240 MG CAPSULE PO SCH (09:37)
[2019-05-02] MEDS: PANTOPRAZOLE 40 MG TABLET PO SCH (09:37)
[2019-05-02] MEDS: ROSUVASTATIN 20 MG TABLET PO SCH (09:37)
[2019-05-02] MEDS: ONDANSETRON 4 MG/2 ML VIAL IV PRN (09:42)
[2019-05-02] MEDS: AZTREONAM 500 MG in SYRINGE 1 EACH IV SCH ×2 (13:08→23:39)
[2019-05-02] MEDS ORDERED: DICYCLOMINE 10 MG CAPSULE PO PRN (14:54)
[2019-05-02] MEDS: glipiZIDE 5 MG TABLET PO SCH (17:42)
[2019-05-02] MEDS: SERTRALINE 50 MG TABLET PO SCH (21:31)
[2019-05-02] MEDS: MONTELUKAST 10 MG TABLET PO SCH (21:32)
[2019-05-03 04:45] LABS: Basophils % 0.1 % (0.0-0.8); Hematocrit 35.4 VOL% (35.7-47.0); Hemoglobin 11.1 GM/DL (12.0-16.0); Immature Granulocytes % 0.7 %; Immature Granulocytes Absolute 0.19 #; Lymphocytes # 2.6 10*3/uL (1.4-4.0); Lymphocytes % 10.2 % (21.3-54.2); Mean Corpuscular HGB Conc 31.4 GM/DL (32-36); Mean Corpuscular Volume 89.8 FL (87-102); Mean Platelet Volume 13.1 FL (9.6-12.0); Monocytes % 5.1 % (1.7-12.7); NRBC # 0.02 10*3/uL; Neutrophils % 83.9 % (38.7-73.9); Platelet Count 220 T/CUMM (130-400); Red Blood Count 3.94 MC/CUMM (3.8-5.5); Red Cell Distribution Width 14.9 % (9.3-17.3); White Blood Count 25.7 T/CUMM (4-12)
[2019-05-03 05:02] LABS: Calcium 9.1 MG/DL (8.5-10.1); Osmolality,Calculated 298.8 MOS/KG (273-304)
[2019-05-03 05:36] LABS: Lymphocytes 16 % (20-55); Nucleated Red Blood Cells 1 (0-5); Segmented Neutrophils 78 % (50-85); Total Cells Counted 100
[2019-05-03 05:37] LABS: Burr Cells Slight; Hypochromasia 1+; Microcytosis 1+; Ovalocytes Slight; Platelet Estimate Normal
[2019-05-03] MEDS ORDERED: DEXTROSE 10% 250 ML BAG IV PRN (07:55)
[2019-05-03] MEDS: MAGNESIUM CHLORIDE 64 MG TABLET PO SCH (08:37)
[2019-05-03] MEDS: ROSUVASTATIN 20 MG TABLET PO SCH (08:37)
[2019-05-03] MEDS: DILTIAZEM CD 240 MG CAPSULE PO SCH (08:37)
[2019-05-03] MEDS: DEXTROSE 10% 500 ML IV SCH (08:37)
[2019-05-03] MEDS: glipiZIDE 5 MG TABLET PO SCH (08:38)
[2019-05-03] MEDS: FUROSEMIDE 40 MG TABLET PO SCH (08:38)
[2019-05-03] MEDS: INSULIN LISPRO 100 UNIT/ML SUBCUT SCH ×4 (08:38→21:10)
[2019-05-03] MEDS: HEPARIN 5,000 UNIT/1 ML VIAL SUBCUT SCH ×2 (08:38→21:10)
[2019-05-03] MEDS: ASPIRIN EC 81 MG TABLET PO SCH (08:39)
[2019-05-03] MEDS: PANTOPRAZOLE 40 MG TABLET PO SCH (08:39)
[2019-05-03] MEDS: MEROPENEM 500 MG in SODIUM CHLORIDE 0.9% 100 ML IV SCH ×2 (11:19→21:29)
[2019-05-03] MEDS: MONTELUKAST 10 MG TABLET PO SCH (21:10)
[2019-05-03] MEDS: SERTRALINE 50 MG TABLET PO SCH (21:10)
[2019-05-04] MEDS: DEXTROSE 10% 500 ML IV SCH (04:37)
[2019-05-04 04:58] LABS: Basophils % 0.2 % (0.0-0.8); Eosinophils # 0.1 10*3/uL (0.0-0.87); Eosinophils % 0.4 % (0.00-10.9); Hemoglobin 11.1 GM/DL (12.0-16.0); Immature Granulocytes % 0.8 %; Immature Granulocytes Absolute 0.12 #; Lymphocytes # 3.3 10*3/uL (1.4-4.0); Lymphocytes % 21.1 % (21.3-54.2); Mean Corpuscular HGB Conc 30.8 GM/DL (32-36); Mean Corpuscular Volume 91.4 FL (87-102); Mean Platelet Volume 12.5 FL (9.6-12.0); Monocytes % 8.7 % (1.7-12.7); NRBC # 0.04 10*3/uL; Neutrophils % 68.8 % (38.7-73.9); Platelet Count 224 T/CUMM (130-400); Red Blood Count 3.94 MC/CUMM (3.8-5.5); Red Cell Distribution Width 15.1 % (9.3-17.3); White Blood Count 15.8 T/CUMM (4-12)
[2019-05-04 05:33] LABS: Calcium 8.6 MG/DL (8.5-10.1); Osmolality,Calculated 295.3 MOS/KG (273-304)
[2019-05-04] MEDS: INSULIN LISPRO 100 UNIT/ML SUBCUT SCH ×4 (07:45→21:20)
[2019-05-04] MEDS: DILTIAZEM CD 240 MG CAPSULE PO SCH (09:35)
[2019-05-04] MEDS: PANTOPRAZOLE 40 MG TABLET PO SCH (09:36)
[2019-05-04] MEDS: MAGNESIUM CHLORIDE 64 MG TABLET PO SCH (09:36)
[2019-05-04] MEDS: HEPARIN 5,000 UNIT/1 ML VIAL SUBCUT SCH ×2 (09:36→21:19)
[2019-05-04] MEDS: FUROSEMIDE 40 MG TABLET PO SCH (09:36)
[2019-05-04] MEDS: ROSUVASTATIN 20 MG TABLET PO SCH (09:36)
[2019-05-04] MEDS: MEROPENEM 500 MG in SODIUM CHLORIDE 0.9% 100 ML IV SCH ×2 (09:36→21:18)
[2019-05-04] MEDS: ASPIRIN EC 81 MG TABLET PO SCH (09:37)
[2019-05-04] MEDS: SERTRALINE 50 MG TABLET PO SCH (21:19)
[2019-05-04] MEDS: MONTELUKAST 10 MG TABLET PO SCH (21:19)
[2019-05-05] MEDS: DEXTROSE 10% 500 ML IV SCH (00:03)
[2019-05-05 05:58] LABS: Basophils # 0.1 10*3/uL (0.0-0.2); Basophils % 0.3 % (0.0-0.8); Eosinophils # 0.2 10*3/uL (0.0-0.87); Eosinophils % 1.4 % (0.00-10.9); Hemoglobin 11.5 GM/DL (12.0-16.0); Immature Granulocytes % 0.7 %; Immature Granulocytes Absolute 0.11 #; Lymphocytes # 5.1 10*3/uL (1.4-4.0); Lymphocytes % 33.9 % (21.3-54.2); Mean Corpuscular HGB Conc 31.1 GM/DL (32-36); Mean Corpuscular Volume 90.9 FL (87-102); Mean Platelet Volume 11.6 FL (9.6-12.0); Monocytes % 13.4 % (1.7-12.7); NRBC # 0.02 10*3/uL; Neutrophils % 50.3 % (38.7-73.9); Platelet Count 242 T/CUMM (130-400); Red Blood Count 4.07 MC/CUMM (3.8-5.5); Red Cell Distribution Width 15.1 % (9.3-17.3); White Blood Count 15.1 T/CUMM (4-12)
[2019-05-05 06:30] LABS: Calcium 8.5 MG/DL (8.5-10.1)
[2019-05-05 07:11] LABS: Eosinophils 1 % (0-10); Lymphocytes 34 % (20-55); Metamyelocytes 1 %; Platelet Estimate Normal; Segmented Neutrophils 57 % (50-85); Total Cells Counted 100
[2019-05-05 07:12] LABS: Pappenheimer Bodies Few
[2019-05-05] MEDS: INSULIN LISPRO 100 UNIT/ML SUBCUT SCH (07:54)
[2019-05-05] MEDS: ROSUVASTATIN 20 MG TABLET PO SCH (09:19)
[2019-05-05] MEDS: DILTIAZEM CD 240 MG CAPSULE PO SCH (09:19)
[2019-05-05] MEDS: HEPARIN 5,000 UNIT/1 ML VIAL SUBCUT SCH ×2 (09:19→21:01)
[2019-05-05] MEDS: ASPIRIN EC 81 MG TABLET PO SCH (09:19)
[2019-05-05] MEDS: DOXYCYCLINE HYCLATE 100 MG CAPSULE PO SCH ×2 (09:20→16:08)
[2019-05-05] MEDS: FUROSEMIDE 40 MG TABLET PO SCH (09:20)
[2019-05-05] MEDS: PANTOPRAZOLE 40 MG TABLET PO SCH (09:20)
[2019-05-05] MEDS: MAGNESIUM CHLORIDE 64 MG TABLET PO SCH (09:20)
[2019-05-05] MEDS: MEROPENEM 500 MG in SODIUM CHLORIDE 0.9% 100 ML IV SCH ×2 (09:20→21:01)
[2019-05-05] MEDS: ONDANSETRON 4 MG/2 ML VIAL IV PRN (17:56)
[2019-05-05] MEDS: MONTELUKAST 10 MG TABLET PO SCH (21:00)
[2019-05-05] MEDS: SERTRALINE 50 MG TABLET PO SCH (21:00)
[2019-05-06 05:29] LABS: Basophils # 0.1 10*3/uL (0.0-0.2); Basophils % 0.4 % (0.0-0.8); Eosinophils # 0.3 10*3/uL (0.0-0.87); Eosinophils % 1.8 % (0.00-10.9); Hematocrit 35.9 VOL% (35.7-47.0); Hemoglobin 11.2 GM/DL (12.0-16.0); Immature Granulocytes % 1.5 %; Immature Granulocytes Absolute 0.22 #; Lymphocytes # 5.3 10*3/uL (1.4-4.0); Lymphocytes % 35.3 % (21.3-54.2); Mean Corpuscular HGB Conc 31.2 GM/DL (32-36); Mean Corpuscular Volume 90.7 FL (87-102); Mean Platelet Volume 12.2 FL (9.6-12.0); Monocytes % 12.6 % (1.7-12.7); Neutrophils % 48.4 % (38.7-73.9); Platelet Count 252 T/CUMM (130-400); Red Blood Count 3.96 MC/CUMM (3.8-5.5); Red Cell Distribution Width 14.8 % (9.3-17.3); White Blood Count 14.9 T/CUMM (4-12)
[2019-05-06 05:30] LABS: Calcium 8.8 MG/DL (8.5-10.1); Osmolality,Calculated 283.5 MOS/KG (273-304)
[2019-05-06] MEDS: DILTIAZEM CD 240 MG CAPSULE PO SCH (09:25)
[2019-05-06] MEDS: FUROSEMIDE 40 MG TABLET PO SCH (09:25)
[2019-05-06] MEDS: ASPIRIN EC 81 MG TABLET PO SCH (09:25)
[2019-05-06] MEDS: MAGNESIUM CHLORIDE 64 MG TABLET PO SCH (09:25)
[2019-05-06] MEDS: ROSUVASTATIN 20 MG TABLET PO SCH (09:25)
[2019-05-06] MEDS: DOXYCYCLINE HYCLATE 100 MG CAPSULE PO SCH (09:25)
[2019-05-06] MEDS: HEPARIN 5,000 UNIT/1 ML VIAL SUBCUT SCH (09:26)
[2019-05-06] MEDS: PANTOPRAZOLE 40 MG TABLET PO SCH (09:26)
[2019-05-06] MEDS: MEROPENEM 500 MG in SODIUM CHLORIDE 0.9% 100 ML IV SCH (09:27)
[2019-05-06 12:43] VITALS: BP 134/61
== END 2019-05-06 13:45 | disposition home health service (06) | DRG 683 ==
LOC: EDUNIT# → EDBD → N.ED 17:08 → N.EDINP 20:58 → N.5E 21:35
PROVIDERS: ADMIT Hospitalist; ATTEND Hospitalist

== ENCOUNTER 2021-07-09 14:57 | Inpatient (IN) ==
[2021-07-09] MEDS ORDERED: ONDANSETRON 4 MG/2 ML VIAL IV STA (15:49)
[2021-07-09] MEDS ORDERED: PANTOPRAZOLE 40 MG VIAL IV STA (15:49)
[2021-07-09] MEDS ORDERED: METOCLOPRAMIDE 10 MG/2 ML VIAL IV STA (15:49)
[2021-07-09 15:57] LABS: Basophils % 0.5 % (0.0-0.8); Eosinophils % 0.3 % (0.00-10.9); Hematocrit 39.5 VOL% (35.7-47.0); Hemoglobin 12.4 GM/DL (12.0-16.0); Immature Granulocytes % 0.3 %; Immature Granulocytes Absolute 0.02 #; Lymphocytes # 2.7 10*3/uL (1.4-4.0); Lymphocytes % 35.4 % (21.3-54.2); Mean Corpuscular HGB Conc 31.4 GM/DL (32-36); Mean Platelet Volume 11.8 FL (9.6-12.0); Monocytes % 8.9 % (1.7-12.7); Neutrophils % 54.6 % (38.7-73.9); Platelet Count 193 T/CUMM (130-400); Red Blood Count 4.44 MC/CUMM (3.8-5.5); Red Cell Distribution Width 15.2 % (9.3-17.3); White Blood Count 7.7 T/CUMM (4-12)
[2021-07-09 16:26] LABS: Alanine Aminotransferase 22 U/L (13-56); Albumin 3.2 G/DL (3.4-5.0); Alkaline Phosphatase 96 U/L (45-117); Aspartate Amino Transferase 24 U/L (0-37); Bilirubin,Total < 0.39 MG/DL (0.20-1.00); Blood Urea Nitrogen 59 MG/DL (7-18); Calcium 8.5 MG/DL (8.5-10.1); Carbon Dioxide 21 MMOL/L (21-32); Estimated Glom Filtration Rate 15 ML/MIN; Glucose 112 MG/DL (74-106); Osmolality,Calculated 298.3 MOS/KG (273-304); Potassium 4.8 MMOL/L (3.5-5.1); Sodium 141 MMOL/L (136-145); Total Protein 6.7 G/DL (6.4-8.2)
[2021-07-09 18:08] LABS: Bilirubin,Urine Negative (Negative); Blood, Urine Negative (Negative); Glucose,Urine (UA) Negative (Negative); Hyaline Casts,Urine 24 /LPF (0-3); Ketones,Urine Negative (Negative); Mucus,Urine Occasional /LPF (Occasional); Nitrite,Urine Negative (Negative); Protein,Urine 30 MG/DL; RBC,Urine 2 /HPF (0-4); Squamous Epithelial Cell,Urine Occasional /HPF (0-10); Urine Appearance CLEAR (Clear); Urine Color Yellow (Yellow); Urine Specific Gravity 1.013 (1.001-1.035); Urine Urobilinogen < 2.0 EU/DL (<2.0)
[2021-07-09] MEDS ORDERED: SODIUM CHLORIDE 0.9% 1,000 ML IV STA ×2 (18:23→18:27)
[2021-07-09] MEDS ORDERED: NICOTINE 21 MG/24 HR PATCH TRANSDERM PRN (18:33)
[2021-07-09] MEDS ORDERED: hydrALAZINE 20 MG/1 ML VIAL IV PRN (18:33)
[2021-07-09] MEDS ORDERED: DEXTROSE 50% 25 GM/50 ML VIAL IV PRN (18:33)
[2021-07-09] MEDS ORDERED: ZALEPLON 5 MG CAPSULE PO PRN (18:33)
[2021-07-09] MEDS ORDERED: PROMETHAZINE 25 MG/1 ML VIAL IM PRN (18:33)
[2021-07-09] MEDS ORDERED: ACETAMINOPHEN 325 MG TABLET PO PRN (18:33)
[2021-07-09] MEDS ORDERED: GLUCAGON 1 MG VIAL IM PRN ×2 (18:33)
[2021-07-09] MEDS ORDERED: guaiFENesin/DM ER 600-30 MG TABLET PO PRN (18:33)
[2021-07-09] MEDS ORDERED: DEXTROSE 10% 250 ML BAG IV PRN (18:42)
[2021-07-09] MEDS: INSULIN LISPRO 100 UNIT/ML SUBCUT SCH (21:12)
[2021-07-09] MEDS: DEXTROSE 5% NACL 0.9% 1,000 ML IV SCH (21:22)
[2021-07-09] MEDS ORDERED: ALBUTEROL/IPRATROPIUM 3 ML NEB RESP TX PRN (23:20)
[2021-07-10 04:57] LABS: Basophils % 0.4 % (0.0-0.8); Eosinophils # 0.2 10*3/uL (0.0-0.87); Eosinophils % 1.9 % (0.00-10.9); Hematocrit 36.7 VOL% (35.7-47.0); Hemoglobin 11.5 GM/DL (12.0-16.0); Immature Granulocytes % 0.1 %; Immature Granulocytes Absolute 0.01 #; Lymphocytes # 4.3 10*3/uL (1.4-4.0); Lymphocytes % 54.7 % (21.3-54.2); Mean Corpuscular HGB Conc 31.3 GM/DL (32-36); Mean Corpuscular Volume 90.2 FL (87-102); Monocytes % 11.8 % (1.7-12.7); Neutrophils % 31.1 % (38.7-73.9); Platelet Count 168 T/CUMM (130-400); Red Blood Count 4.07 MC/CUMM (3.8-5.5); Red Cell Distribution Width 15.5 % (9.3-17.3); White Blood Count 7.8 T/CUMM (4-12)
[2021-07-10] MEDS: DEXTROSE 5% NACL 0.9% 1,000 ML IV SCH ×3 (05:48→23:16)
[2021-07-10 05:50] LABS: Acanthocytes Few; Atypical Lymphocytes Few; Eosinophils 1 % (0-10); Hypochromia Slight; Lymphocytes 53 % (20-55); Microcytosis 1+; Segmented Neutrophils 38 % (50-85); Total Cells Counted 100
[2021-07-10 05:51] LABS: Platelet Estimate Adequate
[2021-07-10 06:05] LABS: Calcium 8.7 MG/DL (8.5-10.1); Potassium 4.4 MMOL/L (3.5-5.1)
[2021-07-10] MEDS: HEPARIN 5,000 UNIT/1 ML VIAL SUBCUT SCH ×3 (08:56→18:45)
[2021-07-10] MEDS: PANTOPRAZOLE 40 MG TABLET PO SCH (08:56)
[2021-07-10] MEDS: INSULIN LISPRO 100 UNIT/ML SUBCUT SCH ×4 (08:57→20:27)
[2021-07-10] MEDS ORDERED: DEXTROSE 10% 250 ML BAG IV PRN (13:00)
[2021-07-10] MEDS ORDERED: CHOLESTYRAMINE/ASPARTAME 4 GM PACK PO PRN (14:50)
[2021-07-10] MEDS ORDERED: LOPERAMIDE 2 MG CAPSULE PO PRN (15:31)
[2021-07-10] MEDS ORDERED: DOCUSATE SODIUM 100 MG CAPSULE PO PRN (15:38)
[2021-07-10] MEDS: ISOSORBIDE MONONITRATE 30 MG TABLET PO SCH (15:57)
[2021-07-10] MEDS: MONTELUKAST 10 MG TABLET PO SCH (15:57)
[2021-07-10] MEDS: SERTRALINE 50 MG TABLET PO SCH (15:58)
[2021-07-10] MEDS: DILTIAZEM CD 240 MG CAPSULE PO SCH ×2 (15:58→16:03)
[2021-07-10] MEDS: OXYBUTYNIN XL 5 MG TABLET PO SCH (20:26)
[2021-07-10] MEDS: ONDANSETRON 4 MG/2 ML VIAL IV PRN (23:46)
[2021-07-11] MEDS: DEXTROSE 5% NACL 0.9% 1,000 ML IV SCH ×3 (02:03→20:24)
[2021-07-11] MEDS: HEPARIN 5,000 UNIT/1 ML VIAL SUBCUT SCH ×2 (06:17→18:45)
[2021-07-11] MEDS: INSULIN LISPRO 100 UNIT/ML SUBCUT SCH ×4 (07:41→20:25)
[2021-07-11] MEDS: ASPIRIN EC 81 MG TABLET PO SCH (09:05)
[2021-07-11] MEDS: SERTRALINE 50 MG TABLET PO SCH (09:05)
[2021-07-11] MEDS: MONTELUKAST 10 MG TABLET PO SCH (09:05)
[2021-07-11] MEDS: DILTIAZEM CD 240 MG CAPSULE PO SCH (09:05)
[2021-07-11] MEDS: ISOSORBIDE MONONITRATE 30 MG TABLET PO SCH (09:05)
[2021-07-11] MEDS: PANTOPRAZOLE 40 MG TABLET PO SCH (09:05)
[2021-07-11] MEDS ORDERED: ERGOCALCIFEROL 50,000 UNIT CAPSULE PO SCH (10:00)
[2021-07-11] MEDS: hydrALAZINE 10 MG TABLET PO SCH ×2 (10:39→20:24)
[2021-07-11] MEDS: OXYBUTYNIN XL 5 MG TABLET PO SCH (20:24)
[2021-07-12] MEDS: ONDANSETRON 4 MG/2 ML VIAL IV PRN (02:30)
[2021-07-12 05:17] LABS: Calcium 8.2 MG/DL (8.5-10.1); Osmolality,Calculated 287.8 MOS/KG (273-304)
[2021-07-12 05:29] LABS: Basophils % 0.3 % (0.0-0.8); Eosinophils # 0.3 10*3/uL (0.0-0.87); Eosinophils % 2.9 % (0.00-10.9); Hematocrit 38.1 VOL% (35.7-47.0); Immature Granulocytes % 0.3 %; Immature Granulocytes Absolute 0.04 #; Lymphocytes # 3.8 10*3/uL (1.4-4.0); Lymphocytes % 33.3 % (21.3-54.2); Mean Corpuscular HGB Conc 29.7 GM/DL (32-36); Mean Corpuscular Volume 93.6 FL (87-102); Mean Platelet Volume 13.8 FL (9.6-12.0); Monocytes % 7.7 % (1.7-12.7); Neutrophils % 55.5 % (38.7-73.9); Platelet Count 145 T/CUMM (130-400); Red Blood Count 4.07 MC/CUMM (3.8-5.5); Red Cell Distribution Width 15.9 % (9.3-17.3); White Blood Count 11.5 T/CUMM (4-12)
[2021-07-12 05:30] LABS: Hemoglobin 11.3 GM/DL (12.0-16.0)
[2021-07-12] MEDS: DEXTROSE 5% NACL 0.9% 1,000 ML IV SCH (06:23)
[2021-07-12] MEDS: HEPARIN 5,000 UNIT/1 ML VIAL SUBCUT SCH (06:24)
[2021-07-12] MEDS: INSULIN LISPRO 100 UNIT/ML SUBCUT SCH ×2 (07:34→12:31)
[2021-07-12] MEDS ORDERED: cloNIDine 0.1 MG TABLET PO ONE (08:56)
[2021-07-12] MEDS: DILTIAZEM CD 240 MG CAPSULE PO SCH (09:13)
[2021-07-12] MEDS: ISOSORBIDE MONONITRATE 30 MG TABLET PO SCH (09:13)
[2021-07-12] MEDS: ASPIRIN EC 81 MG TABLET PO SCH (09:13)
[2021-07-12] MEDS: MONTELUKAST 10 MG TABLET PO SCH (09:14)
[2021-07-12] MEDS: SERTRALINE 50 MG TABLET PO SCH (09:14)
[2021-07-12] MEDS: hydrALAZINE 10 MG TABLET PO SCH (09:14)
[2021-07-12] MEDS: PANTOPRAZOLE 40 MG TABLET PO SCH (09:14)
[2021-07-12 11:33] VITALS: BP 144/61
[2021-07-12] MEDS ORDERED: hydrALAZINE 25 MG TABLET PO SCH (21:00)
[2021-07-13] MEDS ORDERED: ERGOCALCIFEROL 50,000 UNIT CAPSULE PO SCH (14:50)
== END 2021-07-12 15:00 | disposition home or self-care (01) | DRG 683 ==
LOC: EDBD → EDUNIT# → N.ED 14:57 → N.EDINP 18:33 → N.3E 07-10 11:39
PROVIDERS: ADMIT Hospitalist; ATTEND Hospitalist